=== PATIENT | female | born 1990 | race American Indian/Alaskan Native ===

== ENCOUNTER → 2018-09-09 09:28 | Outpatient (CLI) | payer MEDICAID, OTHER, SELFPAY ==
--- NOTE | 2018-09-09 | DI.RAD.S_ITS ---
PROCEDURE: XR RIBS LT 2V INDICATIONS: chest pain TECHNIQUE: 2 views of the left ribs were acquired. COMPARISON: None. FINDINGS: Surgical changes and devices: None. Bones and chest wall: No fractures or dislocations. No suspicious bony lesions. Overlying soft tissues appear unremarkable. Lungs and pleura: The visualized lung appears clear. No pleural effusions or pneumothorax are visible. IMPRESSION: No fracture identified Dictated by: Khoi Mari M.D. on 09/09/2018 at 10:49 Approved by: Khoi Mari M.D. on 09/09/2018 at 10:50
--- NOTE | 2018-09-09 | DI.RAD.S_ITS ---
PROCEDURE: XR CHEST 2V INDICATIONS: CHEST WALL LEFT ANTERIOR PAIN TECHNIQUE: 2 views of the chest were acquired. COMPARISON: [facility], , CHEST 2 VIEW, 04/03/2009, 13:33. FINDINGS: Surgical changes and devices: None. Lungs and pleura: Lungs are clear. No pleural effusions or pneumothorax. Mediastinum: Mediastinal contours are normal. Heart size is normal. Bones and chest wall: No suspicious bony abnormalities. Soft tissues appear unremarkable. IMPRESSION: No acute cardiopulmonary findings. No radiographic findings to correspond with the patient's area of pain. If further characterization is warranted, ultrasound of this region could be used. Dictated by: Kelin Rondon M.D. on 09/09/2018 at 10:53 Approved by: Kelin Rondon M.D. on 09/09/2018 at 10:54
== END ==
PROVIDERS: Visit Provider Physician Assistant
DX: R07.89 Other chest pain (principal)
CPT/HCPCS: 71046; 71100

== ENCOUNTER → 2019-01-04 16:03 | Outpatient (CLI) | payer MEDICAID, OTHER, SELFPAY ==
--- NOTE | 2019-01-04 16:06 | DI.US.S_ITS ---
PROCEDURE: US OB <= 14 WEEKS FETUS INDICATIONS: DATING OUTSIDE/PRIOR DATING DATA: Last menstrual period (LMP): 10/29/18 LMP-based estimated date of delivery (EDER): 08/10/19. First dating scan (date and location): 01/04/19. Estimated date of delivery (EDER) from first dating scan: 07/25/19. TECHNIQUE: Real-time scanning was performed of the fetus and maternal pelvic organs, with image documentation. Endovaginal scanning was also performed to better visualize the fetus and maternal ovaries. COMPARISON: None. FINDINGS: Embryo: Single intrauterine gestational sac is seen. [place]-rump length measures 4.3 cm. Estimated gestational age is 11 week one day. heart rate is 163 beats per minute. No gross paranasal gestational hemorrhage is noted. Measurement variability in dating: +/- 4 weeks by LMP, +/- 7 days by mean sac diameter (use before 6 weeks gestation if crown-rump length not able to be measured), +/- 5 days by crown-rump length (up to 8 weeks 6 days gestation), +/- 7 days by crown-rump length (up to 13 weeks 6 days gestation). Maternal organs: Ovaries are visualized and show no gross abnormality. 1.5 cm corpus luteum is noted in left ovary.. Limited images through the kidneys demonstrate no hydronephrosis. IMPRESSION: 1. Single live intrauterine with fetus seen. heart rate is 163 beats per minute. Estimated gestational age is 11 week one day. 2. Small corpus luteum the left ovary as above. Dictated by: Magdi Avalos M.D. on 01/05/2019 at 9:02 Approved by: Magdi Avalos M.D. on 01/05/2019 at 9:05
[2019-01-04 17:50] LABS: Add Manual Diff / Slide Review NO; Basophils Absolute Auto 100 /uL (0-100); Basophils Percent Auto 0.4 % (0-2); Eosinophils Absolute Auto 100 /uL (0-450); Eosinophils Percent Auto 0.3 % (2-4); Hemoglobin 12.3 g/dL (12.0-16.0); Lymphocytes Absolute Auto 2400 /uL (1100-4500); Mean Corpuscular HGB Conc 33.1 % (30-36); Mean Corpuscular Hemoglobin 26.2 PG (26-34); Mean Corpuscular Volume 79.2 fL (80-100); Monocytes Absolute Auto 700 /uL (0-900); Monocytes Percent Auto 4.6 % (3-14); Neutrophils Absolute Auto 13000 /uL (1500-7000); Neutrophils Percent Auto 79.7 % (50-75); Platelet Count 447 X10^3/uL (150-400); Red Blood Cell Count 4.68 X10^6/uL (4.0-5.2); Red Cell Distribution Width 17.2 % (11.6-14.8); White Blood Cell Count 16.3 X10^3/uL (4.5-11.0)
[2019-01-04 18:14] LABS: Appearance Urine UA CLOUDY; Bilirubin Urine UA NEGATIVE (NEGATIVE); Color Urine UA YELLOW; Glucose Urine UA NEGATIVE (Negative); Ketones Urine UA 1+ (NEGATIVE); Leukocyte Esterase Urine UA NEGATIVE (NEGATIVE); Nitrite Urine UA NEGATIVE (Negative); Occult Blood Urine UA TRACE-LYSED (Negative); Protein Urine UA TRACE (Negative); Specific Gravity Urine UA >=1.030 (1.000-1.035); Urobilinogen Urine UA 0.2 E.U./dL (0.2); pH Urine UA 5.5 (4.5-8.0)
[2019-01-04 18:20] LABS: Hepatitis B Surface Antigen NEGATIVE s/c (NEGATIVE); Rubella Antibody IgG 3.6 IU/mL (>15)
[2019-01-04 18:54] LABS: HIV 1 and 2 Antibody NEGATIVE (NEGATIVE); Hep C Virus Ab w/Reflex Quant NEGATIVE s/c (NEGATIVE)
[2019-01-06 19:50] LABS: RPR Screen Nonreactive (Nonreactive)
[2019-01-19 14:09] LABS: Urine N gonorrhoeae NOT DETECTED
[2019-01-19 14:32] LABS: Urine Chlamydia NOT DETECTED
== END ==
PROVIDERS: Visit Provider Obstetrics & Gynecology
DX: O34.81 Maternal care for other abnormalities of pelvic organs, first trimester (principal); N83.12 Corpus luteum cyst of left ovary; Z3A.11 11 weeks gestation of pregnancy
CPT/HCPCS: 36415; 76801; 80055; 81003; 86703; 86787; 86803; 86850; 86900; 86901; 87077; 87086; 87147; 87186; 87491; 87591

== ENCOUNTER → 2019-02-16 09:17 | Outpatient (CLI) | payer MEDICAID, OTHER, SELFPAY ==
[2019-02-22 12:49] LABS: Calc Gestational Age 17.4; Cigarette Smoker No; Donated Egg NOT GIVEN; Donor Egg Age NOT GIVEN; Estriol, Free 1.01 ng/mL; Inhibin A, Dimeric 423 pg/mL; Maternal Ethnicity American Indian; Maternal Weight 176 lbs; Number of Fetuses 1; Previous Pregnancy Down Syndro NOT GIVEN; hCG, MoM 1.11; hCG, Serum 28.6 IU/mL
== END ==
PROVIDERS: Visit Provider Obstetrics & Gynecology
DX: Z34.82 Encounter for supervision of other normal pregnancy, second trimester (principal); L65.9 Nonscarring hair loss, unspecified; Z3A.17 17 weeks gestation of pregnancy
CPT/HCPCS: 36415; 82105; 82677; 84439; 84443; 84702; 86336

== ENCOUNTER → 2019-03-08 07:07 | Outpatient (CLI) | payer MEDICAID, OTHER, SELFPAY ==
--- NOTE | 2019-03-08 07:10 | DI.US.S_ITS ---
PROCEDURE: US OB >= 14 WEEKS FETUS INDICATIONS: ANATOMY OUTSIDE/PRIOR DATING DATA: Last menstrual period (LMP): 10/29/18. LMP-based estimated date of delivery (EDER): 08/05/19. First dating scan (date and location): 01/04/19. Estimated date of delivery (EDER) from first dating scan: 07/25/19. TECHNIQUE: Real-time scanning was performed of the fetus, with image documentation and biometric measurements. Endovaginal scanning: No COMPARISON: [facility], , OB <= 14 WEEKS FETUS, 01/19/2019, 11:01. FINDINGS: General: A single living intrauterine gestation is present. Presentation: Vertex. Placenta: Placental position is right fundal, without previa. Amniotic fluid index: 13.3 cm, normal range is 5-24 cm. heart rate: 136 beats per minute. Maternal cervical canal: 3.9 cm long. Normal lower limit is 2.5 cm. biometrics: Biparietal diameter: 20 weeks 3 days Head circumference: 20 weeks 0 days Abdominal circumference: 20 weeks 3 days Femur length: 19 weeks 5 days Estimated gestational age from initial scan: 20 weeks 1 day Composite gestational age from present scan: 20 weeks 1 day Estimated weight and percentile: 331 g; 42nd percentile Measurement variability for biometric dating: +/- 7 days from 14 weeks to 15 weeks 6 days gestation, +/- 10 days from 16 weeks to 21 weeks 6 days gestation, +/- 2 weeks from 22 weeks to 27 weeks 6 days gestation, +/- 3 weeks for 28 weeks gestation or later. weight reference: 4500 g or EFW >90/95% is considered macrosomia or large for gestational age. EFW <10% is small for gestational age. EFW 5% or less is considered intra-uterine growth restriction. Anatomic survey: Neuro: Ventricles are non-dilated at less than 10 mm. Cisterna magna is normal at 3-11 mm. Cerebellum is normal in size and morphology. Nuchal skin fold: Normal at less than 6 mm between 14-21 weeks gestational age. Face: Nose and lips, facial profile are normal. Spine: No evidence for spina bifida. Heart: 4-chambered heart is present, with normal ventricular outflow tracts. Diaphragm: Diaphragm is intact. Stomach: Left-sided stomach is present. Kidneys: No hydronephrosis. Normal is less than 5 mm in 2nd trimester, less than 7 mm in 3rd trimester. Cord: 3-vessel cord has orthotopic insertion. Bladder: Normal in size. Extremities: All 4 extremities identified. IMPRESSION: 1. Single living IUP redemonstrated and interval growth is normal. 2. Normal anatomic survey. Dictated by: Rey ROBIN Interpreted: Xiomara Saavedra MD on 03/08/2019 at 10:30 Approved by: Xiomara Saavedra M.D. on 03/08/2019 at 16:10
== END ==
PROVIDERS: PCP Obstetrics & Gynecology; Visit Provider Obstetrics & Gynecology
DX: Z34.82 Encounter for supervision of other normal pregnancy, second trimester (principal); Z3A.20 20 weeks gestation of pregnancy
CPT/HCPCS: 76811

== ENCOUNTER → 2019-04-12 10:35 | Outpatient (CLI) | payer MEDICAID, OTHER, SELFPAY ==
[2019-04-12 13:06] LABS: Hematocrit 34.1 % (36-46); Hemoglobin 11.5 g/dL (12.0-16.0)
[2019-04-12 13:25] LABS: GTT (PREG) 1 Hour PP 50gm Dose 138 mg/dL (76-139)
== END ==
PROVIDERS: Visit Provider Obstetrics & Gynecology
DX: Z34.82 Encounter for supervision of other normal pregnancy, second trimester (principal); Z3A.24 24 weeks gestation of pregnancy
CPT/HCPCS: 36415; 82950; 85014; 85018

== ENCOUNTER 2019-05-27 13:08 | Outpatient (CLI) | payer OTHER, MEDICAID, SELFPAY ==
[2019-05-27 13:44] LABS: Add Manual Diff / Slide Review NO; Basophils Absolute Auto 200 /uL (0-100); Basophils Percent Auto 1.1 % (0-2); Eosinophils Absolute Auto 100 /uL (0-450); Eosinophils Percent Auto 0.8 % (2-4); Hematocrit 34.7 % (36-46); Hemoglobin 11.8 g/dL (12.0-16.0); Lymphocytes Absolute Auto 2000 /uL (1100-4500); Lymphocytes Percent Auto 14.1 % (25-40); Mean Corpuscular HGB Conc 33.9 % (30-36); Mean Corpuscular Hemoglobin 26.8 PG (26-34); Monocytes Absolute Auto 900 /uL (0-900); Monocytes Percent Auto 6.5 % (3-14); Neutrophils Absolute Auto 10900 /uL (1500-7000); Neutrophils Percent Auto 77.5 % (50-75); Platelet Count 477 X10^3/uL (150-400); Red Cell Distribution Width 15.4 % (11.6-14.8)
[2019-05-27 13:55] LABS: Bacteria Urine None Seen; RBC Urine None Seen (0-5/HPF)
[2019-05-27 13:56] LABS: Appearance Urine UA CLEAR; Bilirubin Urine UA NEGATIVE (NEGATIVE); Color Urine UA YELLOW; Glucose Urine UA NEGATIVE (Negative); Ketones Urine UA NEGATIVE (NEGATIVE); Leukocyte Esterase Urine UA 1+ (NEGATIVE); Nitrite Urine UA NEGATIVE (Negative); Occult Blood Urine UA NEGATIVE (Negative); Protein Urine UA NEGATIVE (Negative); Specific Gravity Urine UA 1.015 (1.000-1.035); Urobilinogen Urine UA 0.2 E.U./dL (0.2)
[2019-05-27 13:58] LABS: Aspartate Aminotransferase 20 IU/L (14-36); Blood Urea Nitrogen 4 mg/dL (7-17); Estimated Glomerular Filt Rate > 60.0 mL/min (>60); Uric Acid 3.1 mg/dL (2.5-6.2)
[2019-05-27 14:09] LABS: pH Urine UA 6.5 (4.5-8.0)
[2019-05-27 14:11] LABS: Culture Indicated Urine Cult Not Indicated; Squamous Epithelial Cell Urine 10-30 /HPF (0-5/HPF); WBC Urine 5-10/HPF (0-5/HPF)
--- NOTE | 2019-05-27 14:38 | PM.OBTRLD ---
Visit Information Visit Information Date of evaluation: 05/27/19 Primary OB Provider: Qian Smith On-call OB Provider: Janis Jones Reason for Evaluation: Yes non-stress test and Yes other Comments/Additional reasons for admission: This patient is a 28-year-old 002 at 31 and 4 presenting for evaluation of 1 month of nausea, intermittent dizziness, and 2 weeks of diarrhea. The patient reports that she has had ongoing symptoms of the above especially when active at work for the past month, but further especially the past week, she has had increasing nausea with vomiting and intermittent diarrhea. She denies fevers, chills, decreased movement, vaginal bleeding, loss of fluid, contractions, chest pain, trouble breathing, palpitations, dysuria, or abdominal pain. The patient reports that her diarrhea is improving, and that she has tried rest for symptoms and that this improves her symptoms. Vital Signs Vital Signs: 125/60, heart rate 95, afebrile [facility] Surgical History Status post delivery Review of Systems Constitutional Constitutional: Reports as per HPI Cardiovascular Cardiovascular: Reports system reviewed; no additional complaints, except as documented Respiratory Respiratory: Reports system reviewed and no additional complaints, except as documented Gastrointestinal Gastrointestinal: Reports as per HPI Genitourinary Genitourinary: Reports as per HPI Exam Narrative Exam Narrative: Patient tolerating cheeseburger and fries during monitoring, well-appearing. GI Palpation: soft and No tender Objective Labs Result Diagrams: 05/27/19 13:35 05/27/19 13:35 Labs: Laboratory Results - last 24 hr 05/27/19 05/27/19 05/27/19 13:25 13:35 13:35 WBC 14.0 H RBC 4.40 Hgb 11.8 L Hct 34.7 L MCV 79.0 L MCH 26.8 MCHC 33.9 RDW 15.4 H Plt Count 477 H Neut % (Auto) 77.5 H Lymph % (Auto) 14.1 L [place] % (Auto) 6.5 Eos % (Auto) 0.8 L Baso % (Auto) 1.1 Neut # (Auto) 44367 H Lymph # (Auto) 2000 [place] # (Auto) 900 Eos # (Auto) 100 Baso # (Auto) 200 H BUN 4 L Creatinine 0.40 L Estimated GFR > 60.0 BUN/Creatinine Ratio 10.0 Uric Acid 3.1 AST 20 Urine Color Yellow Urine Appearance Clear Urine pH 6.5 Ur Specific [place] 1.015 Urine Protein Negative Urine Glucose (UA) Negative Urine Ketones Negative Urine Occult Blood Negative Urine Nitrate Negative Urine Bilirubin Negative Urine Urobilinogen 0.2 Ur Leukocyte Esterase 1+ H Urine RBC None seen Urine WBC 5-10/hpf H Ur Squamous Epith Cells 10-30 /hpf H Urine Bacteria None seen Ur Culture Indicated? Cult not indicated Evaluation Evaluation Baseline heart rate: 135 Variability: Average (6-10) monitor accelerations: Present monitor decelerations: Absent Category of Tracing: I Laboratory results: Laboratory Tests 05/27/19 05/27/19 05/27/19 13:25 13:35 13:35 WBC 14.0 H RBC 4.40 Hgb 11.8 L Hct 34.7 L MCV 79.0 L MCH 26.8 MCHC 33.9 RDW 15.4 H Plt Count 477 H Neut % (Auto) 77.5 H Lymph % (Auto) 14.1 L [place] % (Auto) 6.5 Eos % (Auto) 0.8 L Baso % (Auto) 1.1 Neut # (Auto) 66738 H Lymph # (Auto) 2000 [place] # (Auto) 900 Eos # (Auto) 100 Baso # (Auto) 200 H BUN 4 L Creatinine 0.40 L Estimated GFR > 60.0 BUN/Creatinine Ratio 10.0 Uric Acid 3.1 AST 20 Urine Color Yellow Urine Appearance Clear Urine pH 6.5 Ur Specific [place] 1.015 Urine Protein Negative Urine Glucose (UA) Negative Urine Ketones Negative Urine Occult Blood Negative Urine Nitrate Negative Urine Bilirubin Negative Urine Urobilinogen 0.2 Ur Leukocyte Esterase 1+ H Urine RBC None seen Urine WBC 5-10/hpf H Ur Squamous Epith Cells 10-30 /hpf H Urine Bacteria None seen Ur Culture Indicated? Cult not indicated Diagnosis, Plan/Disposition Plan/Disposition Plan: Based on the patient's elevated white count and nausea vomiting and diarrhea symptoms, the patient may have had a viral gastroenteritis. The patient reports that this is now resolving, no she has a history of -induced hypertension, her vital signs and PIH labs are normal here today. The patient is well-appearing and tolerating p.o., and was counseled on lifestyle modifications for her dizziness and fatigue. We discussed that should her symptoms worsen or new symptoms appear, she should call or present to the Center. The patient is scheduled for an appointment on May 31 in clinic. The patient was given a work note and as needed RAJEEV Esquivel. OB Disposition: home
== END 2019-05-27 14:43 | disposition home or self-care (01) ==
LOC: LABOR 13:42 → OB 06-03 12:20
PROVIDERS: PCP Obstetrics & Gynecology; Visit Provider Obstetrics & Gynecology
DX: O36.8130 Decreased fetal movements, third trimester, not applicable or unspecified (principal); O16.3 Unspecified maternal hypertension, third trimester; Z3A.31 31 weeks gestation of pregnancy; R11.2 Nausea with vomiting, unspecified; R42 Dizziness and giddiness
CPT/HCPCS: 36415; 59025; 81001; 84450; 84550; 85025; G0378; G0379

== ENCOUNTER 2019-06-03 12:46 | Observation (INO) | payer OTHER, MEDICAID, SELFPAY ==
--- NOTE | 2019-06-03 14:27 | DI.US.S_ITS ---
PROCEDURE: US OB LIMITED INDICATIONS: CONTRACTIONS OUTSIDE/PRIOR DATING DATA: Last menstrual period (LMP): 10/29/18. LMP-based estimated date of delivery (EDER): 08/10/19. First dating scan (date and location): 01/04/19. Estimated date of delivery (EDER) from first dating scan: 07/25/19. TECHNIQUE: Real-time scanning was performed of the fetus, with image documentation. Endovaginal scanning: Not performed COMPARISON: None. FINDINGS: A single living intrauterine gestation is present. Presentation: Vertex Placenta: Placental position is right fundal, without previa. Amniotic fluid index: 17.5 cm, normal range is 5-24 cm. heart rate: 127 beats per minute. Maternal cervical canal: 4.06 cm long. Normal lower limit is 2.5 cm. IMPRESSION: Limited evaluation shows a single live intrauterine with fetus in vertex presentation. heart rate is 127 beats per minute. Normal amount of amniotic fluid. Cervix is closed. No placenta previa. Dictated by: Magdi Avalos M.D. on 06/03/2019 at 18:07 Approved by: Magdi Avalos M.D. on 06/03/2019 at 18:08
[2019-06-03 16:06] LABS: Fetal Fibronectin Negative
--- NOTE | 2019-06-03 16:35 | PM.OBTRLD ---
Visit Information Visit Information Date of evaluation: 06/03/19 Primary OB Provider: Qian Smith On-call OB Provider: Becky Singh Reason for Evaluation: Yes rule out labor Comments/Additional reasons for admission: Patient came in due to contractions today. Denied loss of fluid or bleeding. Contractions stopped once she arrived at the center. Delivered her first baby at 35 weeks via , second baby at term and also a . Vital Signs Vital Signs: Temp 36.2 BP 135/82 P 93 PFSH Surgical History Status post delivery Objective Labs Labs: Laboratory Results - last 24 hr 06/03/19 15:25 Fibronectin Negative Evaluation Evaluation Baseline heart rate: 130 Variability: Moderate (11-25) monitor accelerations: Present monitor decelerations: Absent Contraction Frequency (minutes): 0 Laboratory results: Laboratory Tests 06/03/19 15:25 Fibronectin Negative Diagnosis, Plan/Disposition Final Diagnosis (1) 32 weeks gestation of : Current Visit: Yes Status: Acute Plan/Disposition Plan: 28 year old at 32 weeks 4 days gestation with contractions and h/o previous delivery at 35 weeks via . Patient was not tom on the monitoring and reported that contractions stopped upon arrival to the center. FFN neg and CL 4 cm. She is considered low risk for labor at this point. Patient will discharge home and follow as scheduled in clinic. OB Disposition: home
== END 2019-06-03 17:38 | disposition home or self-care (01) ==
PROVIDERS: Family Medicine; Admitting Provider Obstetrics & Gynecology; PCP Obstetrics & Gynecology; Visit Provider Obstetrics & Gynecology
DX: O47.03 False labor before 37 completed weeks of gestation, third trimester (principal); Z3A.32 32 weeks gestation of pregnancy
CPT/HCPCS: 59025; 59050; 76815; 76817; 82731; G0378; G0379

== ENCOUNTER → 2019-06-21 12:13 | Outpatient (CLI) | payer OTHER, MEDICAID, SELFPAY ==
[2019-06-22 16:21] LABS: Strep Grp B PCR POS for Grp B Strep
== END ==
PROVIDERS: PCP Obstetrics & Gynecology; Visit Provider Obstetrics & Gynecology
DX: Z34.83 Encounter for supervision of other normal pregnancy, third trimester (principal); Z3A.35 35 weeks gestation of pregnancy
CPT/HCPCS: 87186; 87653

== ENCOUNTER 2019-06-27 09:04 | Outpatient (CLI) | payer OTHER, MEDICAID, SELFPAY ==
--- NOTE | 2019-06-27 10:05 | PM.OBTRLD ---
Visit Information Visit Information Date of evaluation: 06/27/19 Primary OB Provider: Qian Smith On-call OB Provider: Cristina Watkins Reason for Evaluation: Yes rupture of membranes Vital Signs Vital Signs: Blood pressure 136/81, pulse of 95, temperature 36.6? Evaluation Evaluation Baseline heart rate: 130 Variability: Moderate (11-25) monitor accelerations: Present monitor decelerations: Absent Contraction Frequency (minutes): 8 Uterine Contraction Intensity: Mild Category of Tracing: I Non-invasive Membranes Rupture Test: negative Diagnosis, Plan/Disposition Final Diagnosis (1) False labor, antepartum: Current Visit: Yes Status: Acute Plan/Disposition Plan: Patient who was where she had rupture membranes because of fluid leaking down her leg x2. AmniSure negative. Patient with some Doddridge Marvin contractions nothing painful. Patient was discharged home to be followed up later in the week for OB appointment OB Disposition: home
== END 2019-06-27 10:26 | disposition home or self-care (01) ==
LOC: LABOR 09:15 → OB 15:48
PROVIDERS: PCP Specialist; Visit Provider Obstetrics & Gynecology
DX: Z34.83 Encounter for supervision of other normal pregnancy, third trimester (principal); Z3A.37 37 weeks gestation of pregnancy
CPT/HCPCS: 59025; 84112; G0378; G0379

== ENCOUNTER 2019-07-06 09:38 | Inpatient (IN) | payer OTHER, MEDICAID, SELFPAY ==
[2019-07-06] VITALS (7 sets, daily range): BP systolic 99–135; BP diastolic 51–90; PULSE 79–103; RESP 14–19; TEMP 36.6; O2SAT 100
[2019-07-06 10:43] LABS: Add Manual Diff / Slide Review NO; Basophils Absolute Auto 100 /uL (0-100); Basophils Percent Auto 0.6 % (0-2); Eosinophils Absolute Auto 0 /uL (0-450); Eosinophils Percent Auto 0.5 % (2-4); Hematocrit 38.5 % (36-46); Hemoglobin 12.9 g/dL (12.0-16.0); Lymphocytes Absolute Auto 1400 /uL (1100-4500); Lymphocytes Percent Auto 15.7 % (25-40); Mean Corpuscular HGB Conc 33.5 % (30-36); Mean Corpuscular Hemoglobin 25.8 PG (26-34); Monocytes Absolute Auto 500 /uL (0-900); Monocytes Percent Auto 5.8 % (3-14); Neutrophils Absolute Auto 7100 /uL (1500-7000); Neutrophils Percent Auto 77.4 % (50-75); Platelet Count 444 X10^3/uL (150-400); Red Cell Distribution Width 15.7 % (11.6-14.8); White Blood Cell Count 9.2 X10^3/uL (4.5-11.0)
[2019-07-06 10:55] LABS: Alanine Aminotransferase 15 IU/L (<35); Albumin 3.8 g/dL (3.5-5.0); Alkaline Phosphatase 169 U/L (38-126); Aspartate Aminotransferase 24 IU/L (14-36); Bilirubin Total 0.4 mg/dL (0.2-1.3); Blood Urea Nitrogen 4 mg/dL (7-17); Carbon Dioxide 25 mmol/L (22-32); Chloride 105 mmol/L (98-107); Estimated Glomerular Filt Rate > 60.0 mL/min (>60); Glucose 76 mg/dL (70-100); HEMOLYSIS < 15 (0-50); Sodium 137 mmol/L (137-145); Total Protein 7.8 g/dL (6.3-8.2)
[2019-07-06 11:05] LABS: Bacteria Urine None Seen; RBC Urine None Seen (0-5/HPF); WBC Urine None Seen (0-5/HPF)
[2019-07-06 11:06] LABS: Appearance Urine UA CLEAR; Bilirubin Urine UA NEGATIVE (NEGATIVE); Color Urine UA YELLOW; Glucose Urine UA NEGATIVE (Negative); Ketones Urine UA NEGATIVE (NEGATIVE); Leukocyte Esterase Urine UA NEGATIVE (NEGATIVE); Nitrite Urine UA NEGATIVE (Negative); Occult Blood Urine UA NEGATIVE (Negative); Protein Urine UA NEGATIVE (Negative); Urobilinogen Urine UA 0.2 E.U./dL (0.2)
--- NOTE | 2019-07-06 11:07 | P.HPOB_ITS ---
OB HPI Date/Time Date of admission: 07/06/19 Date Patient Seen: 07/06/19 Time Patient Seen: 11:07 History of Present Condition Chief complaint: LABOR : 3 Para: 2 Estimated Date of Delivery: 07/25/19 Estimated Gestational Age (weeks): 37 Narrative: Elvia Etienne is a 28 year old female with 2 prior sections admitted for repeat section for contractions and hypertension in the 3rd trimester with some early preeclamptic lab changes Indications Operative indications ( section): previous uterine surgery History of Present care: good care, initiated at week # (11), number of visits (10) and pounds weight gain (44) Dating criteria: based on 1st trimester US only Obstetrical complications: gestational hypertension Medical complications: none Preadmission Labs Blood type: O (+) positive -: Antibody screen: negative, GBS status: positive, HBsAG: negative, HIV: negative, HSV 1: positive, HSV 2: positive and RPR/VDLR: negative -: Chlamydia screen: not detected and Gonorrhea screen: not detected -: Rubella: not immune and Varicella: not immune HCAB: negative Quad screen: Normal 1 hr GTT: 138 Prior (ies) History: 04/05/2011 35 week gestation male 7 lb 5 oz PROM 07/20/2013 39 weeks gestation female 7 lb 12 oz repeat Evaluation Evaluation Laboratory results: Laboratory Tests 07/06/19 07/06/19 07/06/19 10:33 10:33 11:00 WBC 9.2 RBC 5.00 Hgb 12.9 Hct 38.5 MCV 77.0 L MCH 25.8 L MCHC 33.5 RDW 15.7 H Plt Count 444 H Neut % (Auto) 77.4 H Lymph % (Auto) 15.7 L [place] % (Auto) 5.8 Eos % (Auto) 0.5 L Baso % (Auto) 0.6 Neut # (Auto) 7100 H Lymph # (Auto) 1400 [place] # (Auto) 500 Eos # (Auto) 0 Baso # (Auto) 100 Sodium 137 Potassium 4.0 Chloride 105 Carbon Dioxide 25 BUN 4 L Creatinine 0.50 L Estimated GFR > 60.0 BUN/Creatinine Ratio 8.0 Glucose 76 Calcium 9.0 Total Bilirubin 0.4 AST 24 ALT 15 Alkaline Phosphatase 169 H Total Protein 7.8 Albumin 3.8 Globulin 4.0 Albumin/Globulin Ratio 1.0 Urine Color Yellow Urine Appearance Clear Urine pH 7.0 Ur Specific [place] 1.010 Urine Protein Negative Urine Glucose (UA) Negative Urine Ketones Negative Urine Occult Blood Negative Urine Nitrate Negative Urine Bilirubin Negative Urine Urobilinogen 0.2 Ur Leukocyte Esterase Negative [facility] Social History Smoking Status: Never smoker Meds Home Medications and Allergies Home Medications Medication Instructions Recorded Confirmed Type ACETAMINOPHEN 650 mg PO PRN #0 12/28/12 07/06/19 History VIT#96/FERROUS FUM/FA 1 tab PO QDAY #100 01/21/13 07/06/19 Rx ( Vitamin) albuterol sulfate [Ventolin HFA] 0 puff INH Q4HP PRN #1 ea 08/23/17 07/06/19 Rx Allergies Allergy/AdvReac Type Severity Reaction Status Date / Time cefixime [CEFIXIME] Allergy Unknown Verified 06/03/19 13:31 Penicillins [PENICILLINS] Allergy Unknown Verified 06/03/19 13:31 promethazine [PROMETHAZINE] Allergy Unknown Verified 06/03/19 13:31 Review of Systems Review of Systems Narrative: Patient thought she had broken her bag of water because she soaks through 3 pads and had fluid leaking down her leg. She began having contractions at 4:00 a.m.. Good movement. Patient has had chronic headache for over a week. No scotomata or epigastric pain. Good movement. ROS Unobtainable: All systems reviewed & are unremarkable except as noted in HPI and below Exam Vital Signs (past 8 hours): - 07/06/19 10:22 Blood Pressure 135/90 Narrative Exam Narrative: HEENT exam within normal limits. Lungs are clear to auscultation and percussion. Heart is regular rate and rhythm no S3-S4 or murmurs. Abdomen is soft, nontender. Fetus is vertex. Extremities without edema and nontender. Objective Labs Result Diagrams: 07/06/19 10:33 07/06/19 10:33 Labs: Laboratory Results - last 24 hr 07/06/19 07/06/19 07/06/19 10:33 10:33 11:00 WBC 9.2 RBC 5.00 Hgb 12.9 Hct 38.5 MCV 77.0 L MCH 25.8 L MCHC 33.5 RDW 15.7 H Plt Count 444 H Neut % (Auto) 77.4 H Lymph % (Auto) 15.7 L [place] % (Auto) 5.8 Eos % (Auto) 0.5 L Baso % (Auto) 0.6 Neut # (Auto) 7100 H Lymph # (Auto) 1400 [place] # (Auto) 500 Eos # (Auto) 0 Baso # (Auto) 100 Sodium 137 Potassium 4.0 Chloride 105 Carbon Dioxide 25 BUN 4 L Creatinine 0.50 L Estimated GFR > 60.0 BUN/Creatinine Ratio 8.0 Glucose 76 Calcium 9.0 Total Bilirubin 0.4 AST 24 ALT 15 Alkaline Phosphatase 169 H Total Protein 7.8 Albumin 3.8 Globulin 4.0 Albumin/Globulin Ratio 1.0 Urine Color Yellow Urine Appearance Clear Urine pH 7.0 Ur Specific [place] 1.010 Urine Protein Negative Urine Glucose (UA) Negative Urine Ketones Negative Urine Occult Blood Negative Urine Nitrate Negative Urine Bilirubin Negative Urine Urobilinogen 0.2 Ur Leukocyte Esterase Negative Assessment and Plan Assessment and Plan Assessment and Plan narrative: Patient with 2 prior sections with increased blood pressure, headaches, increased alkaline phosphatase, grade 3 placenta, contractions every 1-3 minutes decision was made to proceed with planned repeat section.
--- NOTE | 2019-07-06 11:07 | PM.PREOP ---
Pre-operative Note Interval Note History & Physical reviewed/Exam performed by Physician: Yes Changes to H&P: No
[2019-07-06 11:14] LABS: Culture Indicated Urine Cult Not Indicated
[2019-07-06] MEDS: CLINDAMYCIN 900 MG/50 ML PIGGYBACK 50 MG IV (13:29)
--- NOTE | 2019-07-06 14:00 | SUR.OPER ---
Supine on Padded OR bed, head on pillow, safety belt at thigh, arms secured on padded arm boards at <90 degrees abduction. Bump under right buttock. Legs uncrossed with pillow under knees, gel pad to heels, tape over blanket to lower legs.
--- NOTE | 2019-07-06 14:13 | SUR.OPER ---
FHR 146 LIVE MALE BORN AT 1346
--- NOTE | 2019-07-06 14:33 | PM.OP.1 ---
Operative Date/Time/Diagnoses Date of procedure: 07/06/19 Time of procedure: 14:33 Pre-op diagnosis: Prior section in early labor Post-op diagnosis: same Procedure & Clinicians Procedure: Repeat low-transverse section Same procedure as scheduled: Yes Indications: Frequent contractions, grade 3 placenta, bad headache, 2 prior sections Surgeon: Cristina Watkins Machine Maintenance Mechanic: Janell Abdi Click Yes if Unassisted: No Anesthesia Type: Spinal Operative Notes Findings: Normal tubes, ovaries, uterus. Extensive adhesions of the omentum to the anterior abdominal wall. Viable male weighing 7 lb 3 oz with Apgars of 9 and 9 Closure Type: primary Specimen(s): none sent Applied: catheter (Medeiros) Estimated Blood Loss (mL): 350 Blood products transfused: none Procedure in detail: The patient was brought to the operating room where she underwent a spinal for anesthesia. She was placed in a supine position with a left lateral tilt. A Medeiros catheter was placed. Pulsatile stockings were placed and functional throughout the case. 900 mg of clindamycin were given IV prior to the incision. Warming was in place. The patient was prepped and draped in usual sterile fashion. A low transverse incision was made with a scalpel and the incision was carried down to the fascial layer which was incised transversely with scissors. The midline attachments are superiorly and inferiorly. Some bleeding was controlled Bovie. The rectus muscles were in the midline and the peritoneal incision was made with no damage to internal structures. The peritoneum was incised and superiorly and inferiorly. Bladder blade was placed and a bladder flap was developed and the bladder held away from the lower uterine segment. An incision was made in the uterus with the scalpel and the incision was extended with stretching. The head was elevated out of the abdomen and with fundal pressure the baby was delivered. The was bulb suctioned for clear fluid and handed off to the warmer. Cord blood was collected. The placenta delivered spontaneously with traction. The uterus was cleaned with clean laps. The uterine incision was closed in 2 layers of 0 chromic suture the first a running locking layer the second an imbricating layer. Due to adhesions there was no obvious bladder flap to repair. The gutters were cleaned of any remaining fluids and ovaries and tubes were observed to be normal. Adequate hemostasis was noted. The perineum was closed with 2-0 Polysorb suture. The fascia layer was closed with 0 Polysorb suture with 2 stitches. The incision was irrigated and adequate hemostasis noted. The incision was closed with interrupted 3-0 Polysorb sutures and then a subcuticular stitch of 4-0 Polysorb suture. Steri-Strips were placed. The uterus was massaged to remove any clots. The patient went to recovery room in good condition. Counts of instruments and sponges were correct. Complications: none Post-operative Condition: stable Disposition: other ( center) Plan for aftercare: Routine post section
--- NOTE | 2019-07-06 15:00 | SUR.PHASEI ---
1200 LR infused. Medication not scanned during surgery.
--- NOTE | 2019-07-06 15:21 | SUR.PHASEI ---
Patient to L&D in stable condition. Assisted receiving nurse with changing all linen and repositioning patient in bed.
[2019-07-06] MEDS: OXYCODONE/ACETAMINOPHEN 5/325 TABLET 1 TAB PO ×2 (16:06→20:54)
[2019-07-06] MEDS: LACTATED RINGERS 1,000 ML 100 ML IV (16:07)
[2019-07-06] MEDS: diphenhydrAMINE 50 MG/ML VIAL 25 MG IV ×2 (16:43→21:34)
[2019-07-06] MEDS: KETOROLAC 30 MG/ML VIAL IV (20:51)
[2019-07-07] MEDS: KETOROLAC 30 MG/ML VIAL IV ×2 (02:37→09:06)
[2019-07-07] MEDS: OXYCODONE/ACETAMINOPHEN 5/325 TABLET 1 TAB PO ×4 (02:38→14:35)
[2019-07-07 06:52] LABS: Add Manual Diff / Slide Review NO; Basophils Absolute Auto 0 /uL (0-100); Basophils Percent Auto 0.3 % (0-2); Eosinophils Absolute Auto 0 /uL (0-450); Eosinophils Percent Auto 0.3 % (2-4); Hematocrit 33.4 % (36-46); Lymphocytes Absolute Auto 1500 /uL (1100-4500); Lymphocytes Percent Auto 12.4 % (25-40); Mean Corpuscular Hemoglobin 25.3 PG (26-34); Mean Corpuscular Volume 76.7 fL (80-100); Monocytes Absolute Auto 800 /uL (0-900); Monocytes Percent Auto 6.9 % (3-14); Neutrophils Absolute Auto 9500 /uL (1500-7000); Neutrophils Percent Auto 80.1 % (50-75); Platelet Count 383 X10^3/uL (150-400); Red Blood Cell Count 4.35 X10^6/uL (4.0-5.2); Red Cell Distribution Width 15.6 % (11.6-14.8); White Blood Cell Count 11.8 X10^3/uL (4.5-11.0)
[2019-07-07] MEDS: DOCUSATE 250 MG CAPSULE PO (09:05)
--- NOTE | 2019-07-07 14:32 | P.PNOB_ITS ---
Subjective - OB Subjective Patient comments: incisional pain, tolerating diet and flatus present [place] baby status: doing well [place] feeding status: exclusively breast feeding Date Patient Seen: 07/07/19 Time Patient Seen: 14:32 Interval history: Patient denies headaches, scotomata, epigastric pain. Breast- feeding is going well. She is urinating and ambulatory. Her bleeding is normal. She is passing gas. Overall she feels better than after her previous sections. Exam Vital Signs (past 8 hours): Blood pressure 153/87, pulse 71, temperature 98.7? Oxygen Delivery Method Room Air Narrative Exam Narrative: Abdomen is soft, with mild distention, nontender. Uterus is firm, U -1, appropriately tender. Dressing is clean dry and intact. Mild lochia. Extremities without edema and nontender Objective Labs Result Diagrams: 07/07/19 06:30 07/06/19 10:33 Labs: Laboratory Results - last 24 hr 07/07/19 06:30 WBC 11.8 H RBC 4.35 Hgb 11.0 L Hct 33.4 L MCV 76.7 L MCH 25.3 L MCHC 33.0 RDW 15.6 H Plt Count 383 Neut % (Auto) 80.1 H Lymph % (Auto) 12.4 L [place] % (Auto) 6.9 Eos % (Auto) 0.3 L Baso % (Auto) 0.3 Neut # (Auto) 9500 H Lymph # (Auto) 1500 [place] # (Auto) 800 Eos # (Auto) 0 Baso # (Auto) 0 Assessment & Plan Assessment and Plan (1) Delivery by section at 37-39 weeks of gestation due to labor: Status: Acute Assessment and plan: Normal 1st day post section exam. Probable home in a.m. if doing well. Current Visit: Yes Plan day: 1 plan OB: routine postop care Time Spent With Patient Time: Total time spent is greater than 50% in coordination of care (as docu mented) at patient's floor/unit and/or counseling patient: Time with patient: less than 15 minutes
[2019-07-07] MEDS: IBUPROFEN 600 MG TABLET PO ×2 (14:55→20:43)
[2019-07-07] MEDS: OXYCODONE/ACETAMINOPHEN 5/325 TABLET 2 TAB PO (19:08)
[2019-07-07 22:13] VITALS: BP 139/92
[2019-07-07] MEDS: LABETALOL 100 MG TABLET PO (22:13)
[2019-07-07 23:50] VITALS: BP 137/78; PULSE 97
[2019-07-08] MEDS: OXYCODONE/ACETAMINOPHEN 5/325 TABLET 2 TAB PO ×2 (02:45→10:44)
[2019-07-08] MEDS: IBUPROFEN 600 MG TABLET PO ×2 (02:46→10:45)
[2019-07-08] MEDS: DOCUSATE 250 MG CAPSULE PO (02:46)
[2019-07-08 07:31] VITALS: BP 148/96; PULSE 78; RESP 19; TEMP 36.6
--- NOTE | 2019-07-08 08:05 | P.DS_ITS ---
Discharge Providers Provider Date of admission: 07/06/19 09:38 Discharge Date: 07/08/19 Consults: 07/06/19 15:30 Consult to [employer] Checker Routine Comment: Discharge provider: Cristina Watkins MD Summary Hospital Course Date Patient Seen: 07/08/19 Time Patient Seen: 08:06 Procedures: Repeat low-transverse section Hospital Course: Patient arrived on Labor and delivery with early labor, increased blood pressure, grade 3 placenta so decision was made to proceed with repeat low-transverse section. The patient did well . Her blood pressure remained elevated so she was started on labetalol. Peripartum Data Infant Delivery Method: Section (Repeat) Procedures: Repeat low-transverse section complications: none 1: Gender: Male Disposition of : home Discharge Diagnosis (1) Delivery by section at 37-39 weeks of gestation due to labor: Status: Acute Status at Discharge Cognitive/behavioral status at discharge: oriented Functional status at discharge: independent ambulation Overall status at discharge: patient is progressing back to baseline Time Spent with Patient Time attestation: Total time spent providing and/or coordinating discharge services: Time spent: Less than 30 minutes Objective Labs Result Diagrams: 07/07/19 06:30 07/06/19 10:33 Exam Vital Signs (past 8 hours): Blood pressure 148/96, pulse 78, temperature 98.2? Oxygen Delivery Method Room Air Narrative Exam Narrative: Abdomen is soft, nontender. Uterus is firm, at U, appropriately tender. Dressing is clean, dry, intact. Mild lochia. Extremities with trace edema and nontender. Patient's blood type is O positive, she is rubella nonimmune so received the rubella vaccine prior to discharge. She received the Tdap in the 3rd trimester. Discharge Plan Discharge Plan Patient Disposition: Home Discharge orders & Medications Prescriptions: New docusate sodium [Col-Rite] 100 mg capsule 100 mg PO DAILY Qty: 30 RF: 0 oxycodone-acetaminophen 5-325 mg Tablet 2 tab PO Q4HR PRN (Reason: Pain, Severe (7-10)) Qty: 40 RF: 0 ibuprofen 600 mg Tablet 600 mg PO Q6HR PRN (Reason: Fever/Mild Pain (1-3)) Qty: 30 RF: 0 labetalol 100 mg Tablet 100 mg PO BID Qty: 60 RF: 0 Continued ACETAMINOPHEN 650 mg PO PRN Qty: 0 RF: 0 VIT#96/FERROUS FUM/FA ( Vitamin) 1 tab PO QDAY Qty: 100 RF: 3 albuterol sulfate [Ventolin HFA] 90 MCG/PUFF HFA aerosol inhaler 0 puff INH Q4HP PRNQty: 1 RF: 0 Follow up/Referrals: Cristina Watkins MD [Physician] - 1 Week (Remove Aquacel and check blood pressureon 07/15/2019 @0830) Diet/Activity/Treatments Diet: Regular Activity: Nothing in vagina for 4 weeks do not lift over 20 lb for 6 weeks Skin/Wound/Dressing Care Report to your healthcare provider any signs of infection, such as:: chills, fever, increased pain and unusual redness Visit Report/Discharge Packet Stand Alone Forms: Discharge: Care Discharges patient from system. Discharge Date/Time: 07/08/19 12:28
[2019-07-08 08:17] VITALS: BP 148/96; PULSE 78
[2019-07-08] MEDS: LABETALOL 100 MG TABLET PO (08:17)
== END 2019-07-08 12:28 | disposition home or self-care (01) | DRG 788 ==
PROVIDERS: Admitting Provider Specialist; Visit Provider Specialist
PROC: 10D00Z1 Extraction of Products of Conception, Low, Open Approach (ICD-10-PCS; CPT 59514; principal; 2019-07-06 12:45)
DX: O75.82 Onset (spontaneous) of labor after 37 completed weeks of gestation but before 39 completed weeks gestation, with delivery by (planned) cesarean section (principal); O34.219 Maternal care for unspecified type scar from previous cesarean delivery; Z3A.37 37 weeks gestation of pregnancy; Z37.0 Single live birth; O13.4 Gestational [pregnancy-induced] hypertension without significant proteinuria, complicating childbirth; O99.824 Streptococcus B carrier state complicating childbirth; B00.9 Herpesviral infection, unspecified; O99.89 Other specified diseases and conditions complicating pregnancy, childbirth and the puerperium; N73.6 Female pelvic peritoneal adhesions (postinfective)
CPT/HCPCS: 36415; 59050; 59510; 59515; 76815; 80053; 81001; 85025; 86850; 86900; 86901; G0379; J1200; J1885; J2274; J2405; J2590; J2765; J3010

== ENCOUNTER 2019-07-27 00:47 | Emergency (ER) | payer MEDICAID, SELFPAY ==
[2019-07-27 01:05] VITALS: BP 133/85; PULSE 107; RESP 15; TEMP 37.3; O2SAT 99; BMI 33.6
--- NOTE | 2019-07-27 01:19 | DI.RAD.S_ITS ---
PROCEDURE: XR CHEST 1V INDICATIONS: chest pain TECHNIQUE: One view of the chest was acquired. COMPARISON: None. FINDINGS: Surgical changes and devices: None. Lungs and pleura: Lungs are clear. No pleural effusions or pneumothorax. Mediastinum: Mediastinal contours appear normal. Heart size is normal. Bones and chest wall: No suspicious bony lesions. Overlying soft tissues appear unremarkable. IMPRESSION: No acute cardiopulmonary disease process. Dictated by: Sophia Casiano MD, PhD on 07/27/2019 at 8:17 Approved by: Sophia Casiano MD, PhD on 07/27/2019 at 8:17
[2019-07-27 01:38] LABS: Add Manual Diff / Slide Review NO; Basophils Absolute Auto 100 /uL (0-100); Basophils Percent Auto 0.7 % (0-2); Eosinophils Absolute Auto 100 /uL (0-450); Eosinophils Percent Auto 1.2 % (2-4); Hematocrit 36.4 % (36-46); Lymphocytes Absolute Auto 2000 /uL (1100-4500); Lymphocytes Percent Auto 16.4 % (25-40); Mean Corpuscular HGB Conc 33.1 % (30-36); Mean Corpuscular Hemoglobin 25.1 PG (26-34); Mean Corpuscular Volume 75.8 fL (80-100); Monocytes Absolute Auto 500 /uL (0-900); Monocytes Percent Auto 4.4 % (3-14); Neutrophils Absolute Auto 9300 /uL (1500-7000); Neutrophils Percent Auto 77.3 % (50-75); Platelet Count 635 X10^3/uL (150-400); Red Cell Distribution Width 15.6 % (11.6-14.8)
[2019-07-27 01:44] LABS: Alanine Aminotransferase 31 IU/L (<35); Albumin 4.2 g/dL (3.5-5.0); Alkaline Phosphatase 106 U/L (38-126); Aspartate Aminotransferase 29 IU/L (14-36); BUN Creatinine Ratio 13.3 (6-22); Bilirubin Total 0.3 mg/dL (0.2-1.3); Blood Urea Nitrogen 8 mg/dL (7-17); Calcium 9.5 mg/dL (8.4-10.2); Carbon Dioxide 27 mmol/L (22-32); Chloride 103 mmol/L (98-107); Estimated Glomerular Filt Rate > 60.0 mL/min (>60); Globulin 4.2 g/dL (1.7-4.1); Glucose 133 mg/dL (70-100); HEMOLYSIS < 15 (0-50); Sodium 139 mmol/L (137-145); Total Protein 8.4 g/dL (6.3-8.2)
[2019-07-27 01:56] LABS: Troponin I < 0.012 ng/mL (0.01-0.034)
--- NOTE | 2019-07-27 02:35 | ED_ITS ---
HPI - Chest Pain General Chief Complaint: Chest Pain Stated Complaint: has hbp chest pain tingling on left side Time Seen by Provider: 07/27/19 02:35 Source: patient Mode of arrival: Family Vehicle Limitations: no limitations History of Present Illness HPI narrative: The patient is 3 weeks . She developed hypertension, she was prescribed labetalol. She was initially on labetalol 2 times daily. She has acid reflux, and was started on omeprazole 2-3 days ago for the acid reflux. She has no stomach pain now. Apparently she was directed to decrease the labetalol dose to 100 mg once a day. She developed chest tightness yesterday. She has no recent cough, or shortness of breath. She has no cardiac or pulmonary disease. She was feeling hot flash. She took a 2nd dose of labetalol, she resume to the original dosing. She has some sternal discomfort upon arrival, but the flushing has resolved. Blood pressure is 130 systolic here in the ER. She is feeling much better than earlier today. She denies recent illness. She has no cough. She has no URI symptoms. She has no GI symptoms. Related Data Home Medications Medication Instructions Recorded Confirmed ACETAMINOPHEN 650 mg PO PRN #0 12/28/12 07/06/19 Previous Rx's Medication Instructions Recorded VIT#96/FERROUS FUM/FA 1 tab PO QDAY #100 01/21/13 ( Vitamin) albuterol sulfate [Ventolin HFA] 0 puff INH Q4HP PRN #1 ea 08/23/17 docusate sodium [Col-Rite] 100 mg PO DAILY #30 cap 07/08/19 ibuprofen 600 mg PO Q6HR PRN #30 tab 07/08/19 labetalol 100 mg PO BID #60 tab 07/08/19 oxycodone-acetaminophen 5 mg-325 1 tab PO Q4HR PRN #20 tab 07/15/19 mg tablet Allergies Allergy/AdvReac Type Severity Reaction Status Date / Time cefixime [CEFIXIME] Allergy Unknown Verified 07/15/19 08:21 Penicillins [PENICILLINS] Allergy Unknown Verified 07/15/19 08:21 promethazine [PROMETHAZINE] Allergy Unknown Verified 07/15/19 08:21 Review of Systems Review of Systems ROS Unobtainable: All systems reviewed & are unremarkable except as noted in HPI and below Constitutional Constitutional: Denies chills, Denies fever(s), Denies headache(s), Denies lethargy and Denies weakness Comments: Feeling flushed. Eyes Eyes: Denies change in vision ENT Ears, Nose, Mouth, and Throat: Denies facial pain and Denies headache(s) Cardiovascular Cardiovascular: Reports as per HPI, Reports chest pain, Denies lightheadedness, Denies palpitations and Denies dyspnea Respiratory Respiratory: Denies cough, Denies dyspnea and Denies wheezing Gastrointestinal Gastrointestinal: Denies abdominal pain and Denies change in bowel habits Musculoskeletal Musculoskeletal: Denies back pain and Denies tingling Integumentary/Breasts Skin/Breast: Denies pruritus, Denies erythema, Denies rash and Denies wounds Neurologic Neurologic: Denies confusion, Denies headache(s), Denies tingling and Denies weakness Psychiatric Psychiatric: Denies confusion Endocrine Endocrine: Denies palpitations Allergic/Immunologic Allergic/Immunologic: Denies wheezing Patient History Medical History (Updated 07/27/19 @ 02:52 by Win Lizarraga MD) GERD (gastroesophageal reflux disease) (Acute) Hypertension (Acute) Surgical History Status post delivery Social History Smoking Status: Never smoker Smoking Status: Never smoker alcohol intake frequency: 0-2 drinks per day Substance Use Type: does not use Exam Initial Vital Signs Initial Vital Signs: Vital Signs Temperature 99.1 F 07/27/19 01:05 Pulse Rate 107 H 07/27/19 01:05 Respiratory Rate 15 07/27/19 01:05 Blood Pressure 133/85 07/27/19 01:05 Pulse Oximetry 99 07/27/19 01:05 Const General: cooperative and well developed Nutritional Appearance: well nourished HENMT Face and sinus: normal facial exam and sinuses tender Mouth: oral mucosae normal Throat: posterior oropharynx normal Eyes General: appearance normal, both eyes and all related structures Eyelids: eyelids normal Conjunctivae: conjunctivae normal Sclera: sclerae normal Pupils: PERRL EOM: EOM intact bilaterally Neck Neck: No JVD Chest Chest: tenderness (Along the sternum.) Resp Effort & Inspection: normal respiratory effort and able to speak in complete sentences Auscultation: clear to auscultation bilaterally, no rales, no rhonchi and no wheezes Cardio Rate: regular rate Rhythm: regular rhythm Heart Sounds: no click, no gallops, no murmurs and no rubs Pulses: normal peripheral pulses GI Inspection: non-distended Palpation: soft, no hepatosplenomegaly and No tender Auscultation: normal bowel sounds Back/Spine/Pelvis Back: No back tenderness Skin General: no rashes or lesions noted Neuro General: alert, oriented x3, gait normal and no focal motor deficits Speech: speech normal Extrem General: full ROM, no pedal edema and no calf tenderness Course Course Course Narrative: From the exam the patient has an element of costochondritis. This could possibly associated with her GERD. However, she may be have essential hypertension. She did not tolerate the decreased dose of labetalol. I have advised her to resume the normal dose. She should follow-up with her OB doctor or primary care doctor regarding ongoing treatment for hypertension. Orders Ordered: ED Orders 07/27/19 01:19 Chest [XR chest 1V] Stat EKG-12 Lead Stat 07/27/19 01:25 Complete Blood Count AUTO DIFF Stat Comprehensive Metabolic Panel Stat Troponin I Stat Vital Signs Vital signs: Vital Signs - 8 hr 07/27/19 01:05 Temperature 99.1 F Pulse Rate 107 H Respiratory Rate 15 Blood Pressure 133/85 Pulse Oximetry 99 MDM - Chest Pain Lab Data Result diagrams: 07/27/19 01:25 07/27/19 01:25 Labs: Lab Results 07/27/19 07/27/19 Range/Units 01:25 01:25 WBC 12.0 H (4.5-11.0) X10^3/uL RBC 4.80 (4.0-5.2) X10^6/uL Hgb 12.0 (12.0-16.0) g/dL Hct 36.4 (36-46) % MCV 75.8 L (80-100) fL MCH 25.1 L (26-34) PG MCHC 33.1 (30-36) % RDW 15.6 H (11.6-14.8) % Plt Count 635 H (150-400) X10^3/uL Neut % (Auto) 77.3 H (50-75) % Lymph % (Auto) 16.4 L (25-40) % [place] % (Auto) 4.4 (3-14) % Eos % (Auto) 1.2 L (2-4) % Baso % (Auto) 0.7 (0-2) % Neut # (Auto) 9300 H (9494-4147) /uL Lymph # (Auto) 2000 (3593-4700) /uL [place] # (Auto) 500 (0-900) /uL Eos # (Auto) 100 (0-450) /uL Baso # (Auto) 100 (0-100) /uL Sodium 139 (137-145) mmol/L Potassium 4.0 (3.4-5.1) mmol/L Chloride 103 (98-107) mmol/L Carbon Dioxide 27 (22-32) mmol/L BUN 8 (7-17) mg/dL Creatinine 0.60 (0.52-1.04) mg/dL Estimated GFR > 60.0 (>60) mL/min BUN/Creatinine Ratio 13.3 (6-22) Glucose 133 H (70-100) mg/dL Calcium 9.5 (8.4-10.2) mg/dL Total Bilirubin 0.3 (0.2-1.3) mg/dL AST 29 (14-36) IU/L ALT 31 (<35) IU/L Alkaline Phosphatase 106 (38-126) U/L Troponin I < 0.012 (0.01-0.034) ng/mL Total Protein 8.4 H (6.3-8.2) g/dL Albumin 4.2 (3.5-5.0) g/dL Globulin 4.2 H (1.7-4.1) g/dL Albumin/Globulin Ratio 1.0 (1.0-2.8) Imaging Data Chest x-ray: My Impression: Normal ECG Data Attestation: I personally reviewed and interpreted this ECG as follows: (Sinus tachycardia rate 105 beats per minute. Normal intervals. No ectopy. No acute ST T wave segments.) Discharge Plan Departure Patient Disposition: Home Clinical Impression: Costochondritis Hypertension Qualifiers: Hypertension type: essential hypertension Qualified Code(s): I10 - Essential (primary) hypertension Instructions: Essential Hypertension, Costochondritis Activity Restrictions/Additional Instructions: Take the labetalol 2 times daily as originally prescribed. Follow-up with your primary care doctor for a blood pressure recheck. The pain you are experiencing is from her ribs. Tylenol 2 tabs every 4 hours as needed for the pain. Return to the ER as needed. Prescriptions: No Action ACETAMINOPHEN 650 mg PO PRN Qty: 0 RF: 0 VIT#96/FERROUS FUM/FA ( Vitamin) 1 tab PO QDAY Qty: 100 RF: 3 albuterol sulfate [Ventolin HFA] 90 MCG/PUFF HFA aerosol inhaler 0 puff INH Q4HP PRNQty: 1 RF: 0 oxycodone-acetaminophen 5-325 mg tablet 1 tab PO Q4HR PRN (Reason: Pain, Severe (7-10)) Qty: 20 RF: 0 docusate sodium [Col-Rite] 100 mg capsule 100 mg PO DAILY Qty: 30 RF: 0 ibuprofen 600 mg Tablet 600 mg PO Q6HR PRN (Reason: Fever/Mild Pain (1-3)) Qty: 30 RF: 0 labetalol 100 mg Tablet 100 mg PO BID Qty: 60 RF: 0
[2019-07-27 02:43] VITALS: BP 133/85; PULSE 93; O2SAT 98
== END 2019-07-27 02:54 | disposition home or self-care (01) ==
LOC: ED 02:50
PROVIDERS: Emergency Provider Emergency Medicine
DX: M94.0 Chondrocostal junction syndrome [Tietze] (principal); I10 Essential (primary) hypertension; R00.0 Tachycardia, unspecified
CPT/HCPCS: 36415; 71045; 80053; 84484; 85025; 93005; 99282; 99285

== ENCOUNTER → 2020-02-17 10:07 | Outpatient (CLI) | payer MEDICAID, OTHER, SELFPAY | PROVIDERS: Referring Provider Physician Assistant; Visit Provider Physician Assistant | DX: N64.4 Mastodynia (principal); Z53.9 Procedure and treatment not carried out, unspecified reason ==

== ENCOUNTER → 2020-02-22 10:41 | Outpatient (CLI) | payer MEDICAID, OTHER, SELFPAY ==
--- NOTE | 2020-02-22 11:35 | DI.US.S_ITS ---
Patient Name: HUGO YOST date: 1990 Sex: F Attending Physician: Aubrey Indications: Date: 02/22/2020 11:26 At the request of: ASHOK LEMONS Procedure: US breast LT limited LIMITED ULTRASOUND OF LEFT BREAST AND AXILLA: 02/22/2020 CLINICAL: Palpable left breast lump and focal pain. Palpable left axilla lump. No prior exams were available for comparison. Ultrasound of the left breast 2-3 o'clock, and axilla regions was performed on the area of interest. There is a normal lymph node in the left axillary tail. This normal lymph node displays fatty hilum. This correlates as palpated. IMPRESSION: BENIGN There is no sonographic evidence of malignancy. The normal lymph node is benign. This exam was interpreted at Station ID: [id number]. Electronically Signed By: Kelin Rondon M.D. lk/:02/22/2020 15:31:29 letter sent: Clinical Evaluation Ultrasound BI-RADS: 2 Benign
== END ==
PROVIDERS: PCP Physician Assistant; Referring Provider Physician Assistant; Visit Provider Physician Assistant
DX: N64.4 Mastodynia (principal); N63.21 Unspecified lump in the left breast, upper outer quadrant; N63.32 Unspecified lump in axillary tail of the left breast
CPT/HCPCS: 76642

== ENCOUNTER → 2020-11-16 16:16 | Outpatient (CLI) | payer MEDICAID, OTHER, SELFPAY ==
[2020-11-16 16:46] LABS: Add Manual Diff / Slide Review NO; Basophils Absolute Auto 100 /uL (0-100); Basophils Percent Auto 0.6 % (0-2); Eosinophils Absolute Auto 200 /uL (0-450); Eosinophils Percent Auto 1.6 % (2-4); Hemoglobin 12.5 g/dL (12.0-16.0); Lymphocytes Absolute Auto 2100 /uL (1100-4500); Lymphocytes Percent Auto 16.4 % (25-40); Mean Corpuscular HGB Conc 33.8 % (30-36); Mean Corpuscular Hemoglobin 27.5 PG (26-34); Mean Corpuscular Volume 81.4 fL (80-100); Monocytes Absolute Auto 700 /uL (0-900); Neutrophils Absolute Auto 10000 /uL (1500-7000); Neutrophils Percent Auto 76.4 % (50-75); Platelet Count 452 X10^3/uL (150-400); Red Blood Cell Count 4.55 X10^6/uL (4.0-5.2); Red Cell Distribution Width 15.1 % (11.6-14.8); White Blood Cell Count 13.1 X10^3/uL (4.5-11.0)
[2020-11-16 17:16] LABS: Appearance Urine UA CLEAR; Bilirubin Urine UA NEGATIVE (NEGATIVE); Color Urine UA YELLOW; Glucose Urine UA NEGATIVE (Negative); Ketones Urine UA TRACE (NEGATIVE); Leukocyte Esterase Urine UA NEGATIVE (NEGATIVE); Nitrite Urine UA NEGATIVE (Negative); Occult Blood Urine UA NEGATIVE (Negative); Protein Urine UA NEGATIVE (Negative); Specific Gravity Urine UA 1.025 (1.000-1.035); Urobilinogen Urine UA 0.2 E.U./dL (0.2)
[2020-11-16 17:19] LABS: pH Urine UA 5.5 (4.5-8.0)
[2020-11-16 18:00] LABS: Hepatitis B Surface Antigen NEGATIVE s/c (NEGATIVE); Rubella Antibody IgG 2.2 IU/mL (>15)
[2020-11-16 18:19] LABS: HIV 1 & 2 Ab/Ag 4th Gen Combo NEGATIVE (NEGATIVE); Hep C Virus Ab w/Reflex Quant NEGATIVE s/c (NEGATIVE)
[2020-11-17 07:52] LABS: RPR Screen Non Reactive (Non Reactive)
[2020-11-17 08:14] LABS: Varicella IgG Antibody 876 index (Immune >165)
== END ==
PROVIDERS: PCP Physician Assistant; Referring Provider Specialist; Visit Provider Specialist
DX: Z34.90 Encounter for supervision of normal pregnancy, unspecified, unspecified trimester (principal)
CPT/HCPCS: 36415; 80055; 81003; 86787; 86803; 86850; 86900; 86901; 87086; 87389

== ENCOUNTER 2020-11-22 12:29 | Emergency (ER) | payer MEDICAID, OTHER, SELFPAY ==
[2020-11-22] VITALS (10 sets, daily range): BP systolic 117–145; BP diastolic 62–96; PULSE 84–116; RESP 12–23; TEMP 37–37.2; O2SAT 98–99; BMI 33.6
--- NOTE | 2020-11-22 13:11 | DI.US.S_ITS ---
PROCEDURE: US ABDOMEN LIMITED INDICATIONS: abd pain, also ruq pain TECHNIQUE: Right upper quadrant abdominal ultrasound with image documentation. COMPARISON: [facility], US, US OB <= 14 WEEKS FETUS, 11/13/2020, 12:38. FINDINGS: Liver: Normal in size and echogenicity. Gallbladder: Nondilated. No stones or sludge. Normal gallbladder wall thickness. No pericholecystic fluid. Negative sonographic Tellez's sign. Biliary tree: CBD measures 0.5 cm. No intrahepatic biliary ductal dilatation. Pancreas: Within normal limits where visualized. Right kidney: No hydronephrosis. Miscellaneous: Living intrauterine gestation. heart rate 157 bpm. IMPRESSION: 1. No acute cholecystitis. No gallstones. 2. Living intrauterine gestation. heart rate 157 bpm. Dictated by: Rafal Gregory M.D. on 11/22/2020 at 13:50 Approved by: Rafal Gregory M.D. on 11/22/2020 at 13:56
--- NOTE | 2020-11-22 13:34 | ED.ABDPAIN ---
HPI - Abdominal Pain <Debo Echols, SPA MANAGER/ESTHETICIAN-BC - Last Filed: 11/22/20 18:44> General Chief Complaint: Abdominal Pain Stated Complaint: 15wks , sharp pain in stomach, back cramp Time Seen by Provider: 11/22/20 12:50 Source: patient Mode of arrival: Ambulatory Limitations: no limitations History of Present Illness HPI narrative: The patient is a 30 year old female nonsmoker who presents with multiple complaints today. This includes tingling in her lower legs, lower abdominal pain, back pain, and overall anxiety. She states she is going through a lot of stress at home, with issues with her car and her baby's father. She denies any dysuria urgency or frequency. She states that her pain is across her lower back. She has not taken anything for pain. She is concerned about blood pressure as she has a history of hypertension during . She denies any vaginal discharge. She states that her pain is in the right side of her abdomen, radiating up underneath her ribs and down to her pubic area. Her OBGYN is Dr. Watkins. Her most recent visit was last week. She states she had an ultrasound last week. The patient does note that she is under lot of stress at home, feels overwhelmed, does have a counselor, does states she is considering . The patient later states that she has had decreased urine output, decreased water intake and that she had some dysuria today. Related Data Home Medications Medication Instructions Recorded Confirmed ACETAMINOPHEN 650 mg PO PRN #0 12/28/12 11/13/20 omeprazole 20 mg capsule,delayed 20 mg PO DAILY 08/11/19 11/13/20 release Previous Rx's Medication Instructions Recorded VIT#96/FERROUS FUM/FA 1 tab PO QDAY #100 01/21/13 ( Vitamin) albuterol sulfate [Ventolin HFA] 0 puff INH Q4HP PRN #1 ea 08/23/17 ondansetron 4 mg PO Q6H PRN #14 tab 11/22/20 Allergies Allergy/AdvReac Type Severity Reaction Status Date / Time azithromycin Allergy Intermediate Rash Verified 11/22/20 12:47 cefixime [CEFIXIME] Allergy Unknown Verified 11/22/20 12:47 Penicillins [PENICILLINS] Allergy Unknown Hives Verified 11/22/20 12:47 promethazine [PROMETHAZINE] Allergy Unknown Verified 11/22/20 12:47 amoxicillin Allergy Verified 11/22/20 12:47 ibuprofen Allergy Unknown Verified 11/22/20 12:47 from AC12/2018 iodine Allergy Unknown Verified 11/22/20 12:47 from AC12/2018 sumatriptan AdvReac Intermediate Dizzyness Verified 11/22/20 12:47 Review of Systems <KASIE Blake - Last Filed: 11/22/20 18:44> Review of Systems Narrative: GENERAL: Denies chills, fatigue, malaise, fever, sweats. HEENT: Denies sinus pain, ear pain, sore throat, difficulty swallowing, dizziness. RESPIRATORY: Denies dyspnea, cough, wheezing, hemoptysis, sputum. CARDIOVASCULAR: Denies chest pain, palpitations, orthopnea, edema, GASTROINTESTINAL: See HPI : See HPI MUSCULOSKELETAL: denies weakness, joint pain, or bony pain SKIN: Denies rash, skin lesions, or other NEUROLOGIC: Denies weakness, headache, numbness, change in speech, confusion, seizures, incoordination. PSYCHIATRIC: No concerning psychosocial issues. 12 point review of systems is negative except for those stated above Patient History <KASIE Blake - Last Filed: 11/22/20 18:44> Medical History Allergic rhinitis Alopecia (~04/02/20) Asthma Chalazion Chronic headache Depressive disorder Essential hypertension (~07/2019) Genital herpes (~2012) GERD (gastroesophageal reflux disease) HSV-1 (herpes simplex virus 1) infection (~2012) Hypertension Iron deficiency (~09/13/20) 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 Grandmother Hypertension Grandfather No problems noted. Grandmother No problems noted. Grandfather No problems noted. Family/Other Thyroiditis Social History marital status: unknown Smoking Status: Never smoker Smoking Status: Never smoker alcohol intake frequency: holidays/special occasions only Substance Use Type: does not use and marijuana Exam <KASIE Blake - Last Filed: 11/22/20 18:44> Narrative Exam Narrative: GENERAL: This is a well-nourished, well-developed patient, appears teary HEAD: Atraumatic. Normocephalic. No temporal or scalp tenderness. EYES: Pupils equal round and reactive. Extraocular motions intact. No scleral icterus. No injection or drainage. ENT: Nose without bleeding, purulent drainage or septal hematoma. Wearing a mask Uvula midline. Airway patent. NECK: Trachea midline. No JVD or lymphadenopathy. Supple, nontender, no meningeal signs. CARDIOVASCULAR: Regular rate and rhythm RESPIRATORY: Clear to auscultation. Breath sounds equal bilaterally. No wheezes, rales, or rhonchi. No cough. No increased respiratory effort. No accessory muscle use. GASTROINTESTINAL: Abdomen soft, diffusely tender to palpation right side right lower quadrant, right upper quadrant, nondistended. No hepato-splenomegaly, or palpable masses. No guarding. Active bowel sounds all 4 quadrants. On repeat exam, abdominal pain has moved to left side. No peritoneal signs, negative heel tap test EXTREMITIES: No clubbing, cyanosis, or edema. No joint tenderness, effusion, or edema noted. BACK: Nontender without deformity or crepitance. No flank tenderness. NEURO: AOx3. SKIN: No rash or erythema on visible skin Initial Vital Signs Initial Vital Signs: Vital Signs Temperature 99.0 F 11/22/20 12:45 Pulse Rate 116 H 11/22/20 12:45 Respiratory Rate 15 11/22/20 12:45 Blood Pressure 140/74 11/22/20 12:45 Pulse Oximetry 98 11/22/20 12:45 <Dorian Saunders DO - Last Filed: 11/22/20 19:00> Initial Vital Signs Initial Vital Signs: Vital Signs Temperature 99.0 F 11/22/20 12:45 Pulse Rate 116 H 11/22/20 12:45 Respiratory Rate 15 11/22/20 12:45 Blood Pressure 140/74 11/22/20 12:45 Pulse Oximetry 98 11/22/20 12:45 Scores <KASIE Blake - Last Filed: 11/22/20 18:44> GCS Betty coma scale eye opening: Spontaneous Betty coma scale verbal response: Orientated [place] coma scale motor response: Obey commands [place] coma scale total score: 15 Course <KASIE Blake - Last Filed: 11/22/20 18:44> Orders Ordered: ED Orders 11/22/20 13:11 US abdomen limited Stat 11/22/20 13:14 EKG-12 Lead Stat 11/22/20 13:50 ABO RH Type Stat Complete Blood Count AUTO DIFF Stat Comprehensive Metabolic Panel Stat HCG Quantitative /Beta subunit Stat Magnesium Stat 11/22/20 14:30 Urinalysis and Microscopic Stat Discontinued Medications Acetaminophen (Acetaminophen 325 Mg Tablet) 975 mg PO NOW ONE Stop: 11/22/20 16:50 Last Admin: 11/22/20 17:02 Dose: 975 mg Documented by: VALDO Sodium Chloride (Normal Saline 0.9%) 1,000 mls @ 1,000 mls/hr IV BOLUS ONE Stop: 11/22/20 14:12 Last Infusion: 11/22/20 14:57 Dose: 0 mls/hr Documented by: Admin: 11/22/20 13:52 Dose: 1,000 mls/hr Documented by: VALDO Sodium Chloride (Normal Saline 0.9%) 1,000 mls @ 1,000 mls/hr IV BOLUS ONE Stop: 11/22/20 15:53 Last Infusion: 11/22/20 16:17 Dose: 0 mls/hr Documented by: Admin: 11/22/20 15:01 Dose: 1,000 mls/hr Documented by: VALDO Ondansetron HCl (Ondansetron 4 Mg/2 Ml Inj) 4 mg IV NOW ONE Stop: 11/22/20 13:14 Last Admin: 11/22/20 13:51 Dose: 4 mg Documented by: VALDO Ondansetron HCl (Ondansetron 4 Mg/2 Ml Inj) 4 mg IV NOW ONE Stop: 11/22/20 17:09 Last Admin: 11/22/20 17:20 Dose: 4 mg Documented by: VALDO Vital Signs Vital signs: Vital Signs - 8 hr 11/22/20 12:45 11/22/20 15:22 11/22/20 15:30 Temperature 99.0 F Pulse Rate 116 H 88 97 H Respiratory Rate 15 18 17 Blood Pressure 140/74 Pulse Oximetry 98 11/22/20 15:31 11/22/20 15:53 11/22/20 16:00 Temperature 98.6 F Pulse Rate 91 H 85 Respiratory Rate 12 18 15 Blood Pressure 122/62 Pulse Oximetry 99 11/22/20 16:30 11/22/20 17:00 11/22/20 17:01 Temperature Pulse Rate 85 87 90 Respiratory Rate 23 22 22 Blood Pressure 132/89 117/96 H Pulse Oximetry 11/22/20 17:30 Temperature Pulse Rate 84 Respiratory Rate Blood Pressure 145/85 H Pulse Oximetry <Dorian Saunders, - Last Filed: 11/22/20 19:00> Orders Ordered: ED Orders 11/22/20 13:11 US abdomen limited Stat 11/22/20 13:14 EKG-12 Lead Stat 11/22/20 13:50 ABO RH Type Stat Complete Blood Count AUTO DIFF Stat Comprehensive Metabolic Panel Stat HCG Quantitative /Beta subunit Stat Magnesium Stat 11/22/20 14:30 Urinalysis and Microscopic Stat Discontinued Medications Acetaminophen (Acetaminophen 325 Mg Tablet) 975 mg PO NOW ONE Stop: 11/22/20 16:50 Last Admin: 11/22/20 17:02 Dose: 975 mg Documented by: VALDO Sodium Chloride (Normal Saline 0.9%) 1,000 mls @ 1,000 mls/hr IV BOLUS ONE Stop: 11/22/20 14:12 Last Infusion: 11/22/20 14:57 Dose: 0 mls/hr Documented by: Admin: 11/22/20 13:52 Dose: 1,000 mls/hr Documented by: VALDO Sodium Chloride (Normal Saline 0.9%) 1,000 mls @ 1,000 mls/hr IV BOLUS ONE Stop: 11/22/20 15:53 Last Infusion: 11/22/20 16:17 Dose: 0 mls/hr Documented by: Admin: 11/22/20 15:01 Dose: 1,000 mls/hr Documented by: VALDO Ondansetron HCl (Ondansetron 4 Mg/2 Ml Inj) 4 mg IV NOW ONE Stop: 11/22/20 13:14 Last Admin: 11/22/20 13:51 Dose: 4 mg Documented by: VALDO Ondansetron HCl (Ondansetron 4 Mg/2 Ml Inj) 4 mg IV NOW ONE Stop: 11/22/20 17:09 Last Admin: 11/22/20 17:20 Dose: 4 mg Documented by: VALDO Vital Signs Vital signs: Vital Signs - 8 hr 11/22/20 12:45 11/22/20 15:22 11/22/20 15:30 Temperature 99.0 F Pulse Rate 116 H 88 97 H Respiratory Rate 15 18 17 Blood Pressure 140/74 Pulse Oximetry 98 11/22/20 15:31 11/22/20 15:53 11/22/20 16:00 Temperature 98.6 F Pulse Rate 91 H 85 Respiratory Rate 12 18 15 Blood Pressure 122/62 Pulse Oximetry 99 11/22/20 16:30 11/22/20 17:00 11/22/20 17:01 Temperature Pulse Rate 85 87 90 Respiratory Rate 23 22 22 Blood Pressure 132/89 117/96 H Pulse Oximetry 11/22/20 17:30 Temperature Pulse Rate 84 Respiratory Rate Blood Pressure 145/85 H Pulse Oximetry MDM - Abdominal Pain <GULSHAN Blake- - Last Filed: 11/22/20 18:44> Lab Data Attestation: I reviewed the patient's lab results. Result diagrams: 11/22/20 13:50 11/22/20 13:50 Labs: Lab Results 11/22/20 11/22/20 11/22/20 Range/Units 13:50 13:50 13:50 WBC 17.0 H (4.5-11.0) X10^3/uL RBC 4.42 (4.0-5.2) X10^6/uL Hgb 12.0 (12.0-16.0) g/dL Hct 35.4 L (36-46) % MCV 80.0 (80-100) fL MCH 27.1 (26-34) PG MCHC 33.9 (30-36) % RDW 15.1 H (11.6-14.8) % Plt Count 477 H (150-400) X10^3/uL Neut % (Auto) 80.2 H (50-75) % Lymph % (Auto) 13.2 L (25-40) % [place] % (Auto) 5.0 (3-14) % Eos % (Auto) 0.8 L (2-4) % Baso % (Auto) 0.8 (0-2) % Neut # (Auto) 88524 H (2733-8137) /uL Lymph # (Auto) 2300 (3125-3819) /uL [place] # (Auto) 900 (0-900) /uL Eos # (Auto) 100 (0-450) /uL Baso # (Auto) 100 (0-100) /uL Sodium 136 L (137-145) mmol/L Potassium 3.3 L (3.4-5.1) mmol/L Chloride 106 (98-107) mmol/L Carbon Dioxide 21 L (22-32) mmol/L BUN 3 L (7-17) mg/dL Creatinine 0.39 L (0.52-1.04) mg/dL Estimated GFR > 60.0 (>60) mL/min BUN/Creatinine Ratio 7.7 (6-22) Glucose 116 H (70-100) mg/dL Calcium 9.0 (8.4-10.2) mg/dL Magnesium (1.6-2.3) mg/dL Total Bilirubin 0.1 L (0.2-1.3) mg/dL AST 18 (14-36) IU/L ALT 14 (<35) IU/L Alkaline Phosphatase 69 (38-126) U/L Total Protein 7.4 (6.3-8.2) g/dL Albumin 3.7 (3.5-5.0) g/dL Globulin 3.7 (1.7-4.1) g/dL Albumin/Globulin Ratio 1.0 (1.0-2.8) HCG, Quant 38237 mIU/mL Urine Color Urine Appearance Urine pH (4.5-8.0) Ur Specific [place] (1.000-1.035) Urine Protein (Negative) Urine Glucose (UA) (Negative) g/dL Urine Ketones (NEGATIVE) Urine Occult Blood (Negative) Urine Nitrate (Negative) Urine Bilirubin (NEGATIVE) Urine Urobilinogen (0.2) E.U./dL Ur Leukocyte Esterase (NEGATIVE) Urine RBC (0-5/HPF) Urine WBC (0-5/HPF) Ur Squamous Epith Cells (0-5/HPF) Uric Acid Crystals (None) Amorphous Sediment Urine Bacteria (None) Urine Mucus (Negative) Ur Culture Indicated? Blood Type O Positive 11/22/20 11/22/20 Range/Units 13:50 14:30 WBC (4.5-11.0) X10^3/uL RBC (4.0-5.2) X10^6/uL Hgb (12.0-16.0) g/dL Hct (36-46) % MCV (80-100) fL MCH (26-34) PG MCHC (30-36) % RDW (11.6-14.8) % Plt Count (150-400) X10^3/uL Neut % (Auto) (50-75) % Lymph % (Auto) (25-40) % [place] % (Auto) (3-14) % Eos % (Auto) (2-4) % Baso % (Auto) (0-2) % Neut # (Auto) (2239-7570) /uL Lymph # (Auto) (2575-4524) /uL [place] # (Auto) (0-900) /uL Eos # (Auto) (0-450) /uL Baso # (Auto) (0-100) /uL Sodium (137-145) mmol/L Potassium (3.4-5.1) mmol/L Chloride (98-107) mmol/L Carbon Dioxide (22-32) mmol/L BUN (7-17) mg/dL Creatinine (0.52-1.04) mg/dL Estimated GFR (>60) mL/min BUN/Creatinine Ratio (6-22) Glucose (70-100) mg/dL Calcium (8.4-10.2) mg/dL Magnesium 1.9 (1.6-2.3) mg/dL Total Bilirubin (0.2-1.3) mg/dL AST (14-36) IU/L ALT (<35) IU/L Alkaline Phosphatase (38-126) U/L Total Protein (6.3-8.2) g/dL Albumin (3.5-5.0) g/dL Globulin (1.7-4.1) g/dL Albumin/Globulin Ratio (1.0-2.8) HCG, Quant mIU/mL Urine Color Yellow Urine Appearance Clear Urine pH 6.5 (4.5-8.0) Ur Specific [place] 1.025 (1.000-1.035) Urine Protein Negative (Negative) Urine Glucose (UA) Negative (Negative) g/dL Urine Ketones Negative (NEGATIVE) Urine Occult Blood Negative (Negative) Urine Nitrate Negative (Negative) Urine Bilirubin Negative (NEGATIVE) Urine Urobilinogen 0.2 (0.2) E.U./dL Ur Leukocyte Esterase Negative (NEGATIVE) Urine RBC None seen (0-5/HPF) Urine WBC 0-1/hpf (0-5/HPF) Ur Squamous Epith Cells 1-5 /hpf D (0-5/HPF) Uric Acid Crystals Moderate H (None) Amorphous Sediment 1+ Urine Bacteria None seen (None) Urine Mucus 1+ H (Negative) Ur Culture Indicated? Cult not indicated Blood Type Imaging Data US - OB: Radiologist's Impression: [address] [place] [id number] ReportSigned Patient: Elvia Etienne [facility]#: [id number]: 1990Acct:[id number]/Sex: 30 / FDate of Service: 11/22/20Loc: EDAccession Number: [id number] Procedure: US abdomen limited Ordering Provider: Debo Echols PROCEDURE: US ABDOMEN LIMITED INDICATIONS: abd pain, also ruq pain TECHNIQUE: Right upper quadrant abdominal ultrasound with image documentation. COMPARISON: [facility], US, US OB <= 14 WEEKS FETUS, 11/13/2020, 12:38. FINDINGS: Liver: Normal in size and echogenicity. Gallbladder: Nondilated. No stones or sludge. Normal gallbladder wall thickness. No pericholecystic fluid. Negative sonographic Tellez's sign. Biliary tree: CBD measures 0.5 cm. No intrahepatic biliary ductal dilatation. Pancreas: Within normal limits where visualized. Right kidney: No hydronephrosis. Miscellaneous: Living intrauterine gestation. heart rate 157 bpm. IMPRESSION: 1. No acute cholecystitis. No gallstones. 2. Living intrauterine gestation. heart rate 157 bpm. Dictated by: Rafal Gregory M.D. on 11/22/2020 at 13:50 Approved by: Rafal Gregory M.D. on 11/22/2020 at 13:56 MDM Narrative Medical decision making narrative: The patient is a 30-year-old female who presents 15 weeks with a chief complaint of abdominal pain as well as accessory complaints of numbness and tingling in her lower extremities, anxiety. However she felt much improved after the above-stated therapies, particularly the IV fluid in Zofran. On exam, her abdominal pain moves around, she has no guarding on exam, no peritoneal signs. She does have leukocytosis, but is afebrile and requesting food multiple times. I discussed at length the importance of follow-up with primary care provider as well as OBGYN. Given her complaints of anxiety, I did speak with JACK MACHINE OPERATOR, though the patient did not want to see her. She does have a counselor as an outpatient. However I did call and speak with Dr. Watkins, and we are able to schedule her for a follow-up appointment on the . However I did discuss at length with the patient that we wanted to hold off on unnecessary radiation given that she is 15 weeks . I discussed the patient and her labs at length with Dr. Saunders, who is in accordance with plan of care. I did discussed at length very strict ER return precautions for her including fever, inability keep down fluids etcetera. The patient is able to tolerate p.o. ice chips prior to discharge. She is requesting food, discussed taking small frequent sips rather than drinking large amounts. She did vomit once after drinking a large amount of fluid quickly in the emergency department, but was able to tolerate p.o. after. Patient has no questions or concerns upon discharge states understanding of return precautions as well as follow-up care. <Dorian Saunders, DO - Last Filed: 11/22/20 19:00> Lab Data Labs: Lab Results 11/22/20 11/22/20 11/22/20 Range/Units 13:50 13:50 13:50 WBC 17.0 H (4.5-11.0) X10^3/uL RBC 4.42 (4.0-5.2) X10^6/uL Hgb 12.0 (12.0-16.0) g/dL Hct 35.4 L (36-46) % MCV 80.0 (80-100) fL MCH 27.1 (26-34) PG MCHC 33.9 (30-36) % RDW 15.1 H (11.6-14.8) % Plt Count 477 H (150-400) X10^3/uL Neut % (Auto) 80.2 H (50-75) % Lymph % (Auto) 13.2 L (25-40) % [place] % (Auto) 5.0 (3-14) % Eos % (Auto) 0.8 L (2-4) % Baso % (Auto) 0.8 (0-2) % Neut # (Auto) 32267 H (3021-2398) /uL Lymph # (Auto) 2300 (2830-5563) /uL [place] # (Auto) 900 (0-900) /uL Eos # (Auto) 100 (0-450) /uL Baso # (Auto) 100 (0-100) /uL Sodium 136 L (137-145) mmol/L Potassium 3.3 L (3.4-5.1) mmol/L Chloride 106 (98-107) mmol/L Carbon Dioxide 21 L (22-32) mmol/L BUN 3 L (7-17) mg/dL Creatinine 0.39 L (0.52-1.04) mg/dL Estimated GFR > 60.0 (>60) mL/min BUN/Creatinine Ratio 7.7 (6-22) Glucose 116 H (70-100) mg/dL Calcium 9.0 (8.4-10.2) mg/dL Magnesium (1.6-2.3) mg/dL Total Bilirubin 0.1 L (0.2-1.3) mg/dL AST 18 (14-36) IU/L ALT 14 (<35) IU/L Alkaline Phosphatase 69 (38-126) U/L Total Protein 7.4 (6.3-8.2) g/dL Albumin 3.7 (3.5-5.0) g/dL Globulin 3.7 (1.7-4.1) g/dL Albumin/Globulin Ratio 1.0 (1.0-2.8) HCG, Quant 31016 mIU/mL Urine Color Urine Appearance Urine pH (4.5-8.0) Ur Specific [place] (1.000-1.035) Urine Protein (Negative) Urine Glucose (UA) (Negative) g/dL Urine Ketones (NEGATIVE) Urine Occult Blood (Negative) Urine Nitrate (Negative) Urine Bilirubin (NEGATIVE) Urine Urobilinogen (0.2) E.U./dL Ur Leukocyte Esterase (NEGATIVE) Urine RBC (0-5/HPF) Urine WBC (0-5/HPF) Ur Squamous Epith Cells (0-5/HPF) Uric Acid Crystals (None) Amorphous Sediment Urine Bacteria (None) Urine Mucus (Negative) Ur Culture Indicated? Blood Type O Positive 11/22/20 11/22/20 Range/Units 13:50 14:30 WBC (4.5-11.0) X10^3/uL RBC (4.0-5.2) X10^6/uL Hgb (12.0-16.0) g/dL Hct (36-46) % MCV (80-100) fL MCH (26-34) PG MCHC (30-36) % RDW (11.6-14.8) % Plt Count (150-400) X10^3/uL Neut % (Auto) (50-75) % Lymph % (Auto) (25-40) % [place] % (Auto) (3-14) % Eos % (Auto) (2-4) % Baso % (Auto) (0-2) % Neut # (Auto) (8834-5666) /uL Lymph # (Auto) (8516-2493) /uL [place] # (Auto) (0-900) /uL Eos # (Auto) (0-450) /uL Baso # (Auto) (0-100) /uL Sodium (137-145) mmol/L Potassium (3.4-5.1) mmol/L Chloride (98-107) mmol/L Carbon Dioxide (22-32) mmol/L BUN (7-17) mg/dL Creatinine (0.52-1.04) mg/dL Estimated GFR (>60) mL/min BUN/Creatinine Ratio (6-22) Glucose (70-100) mg/dL Calcium (8.4-10.2) mg/dL Magnesium 1.9 (1.6-2.3) mg/dL Total Bilirubin (0.2-1.3) mg/dL AST (14-36) IU/L ALT (<35) IU/L Alkaline Phosphatase (38-126) U/L Total Protein (6.3-8.2) g/dL Albumin (3.5-5.0) g/dL Globulin (1.7-4.1) g/dL Albumin/Globulin Ratio (1.0-2.8) HCG, Quant mIU/mL Urine Color Yellow Urine Appearance Clear Urine pH 6.5 (4.5-8.0) Ur Specific [place] 1.025 (1.000-1.035) Urine Protein Negative (Negative) Urine Glucose (UA) Negative (Negative) g/dL Urine Ketones Negative (NEGATIVE) Urine Occult Blood Negative (Negative) Urine Nitrate Negative (Negative) Urine Bilirubin Negative (NEGATIVE) Urine Urobilinogen 0.2 (0.2) E.U./dL Ur Leukocyte Esterase Negative (NEGATIVE) Urine RBC None seen (0-5/HPF) Urine WBC 0-1/hpf (0-5/HPF) Ur Squamous Epith Cells 1-5 /hpf D (0-5/HPF) Uric Acid Crystals Moderate H (None) Amorphous Sediment 1+ Urine Bacteria None seen (None) Urine Mucus 1+ H (Negative) Ur Culture Indicated? Cult not indicated Blood Type Discharge Plan Departure Patient Disposition: Home Clinical Impression: Nausea Abdominal pain Qualifiers: Abdominal location: generalized Qualified Code(s): R10.84 - Generalized abdominal pain Instructions: Nausea of (Alternative Therapy), DI for Abdominal Pain-Adult, DI for Vomiting -- Adult, Kathrin May Improve Nausea Symptoms in Activity Restrictions/Additional Instructions: Thank you for trusting us with your care today As discussed, please follow-up with primary care provider. You have an appointment with Dr. Watkins on the at 12:15 p.m. Please follow-up with Dr. Watkins as well as your primary care I have given you a prescription for ondansetron for nausea. I sent this to [facility]. Please be aware that this can be constipating. As discussed, please focus on ice chips and clear liquids tonight. Take small sips frequently. Do not eat or drink large amounts at once. As discussed, please come back to the emergency department for any acute concerns. This includes inability keep down fluids, abdominal pain with fever, sudden worsening abdominal pain etcetera Prescriptions: New ondansetron 4 mg tablet,disintegrating 4 mg PO Q6H PRN (Reason: nausea and vomiting) Qty: 14 RF: 0 No Action ACETAMINOPHEN 650 mg PO PRN Qty: 0 RF: 0 VIT#96/FERROUS FUM/FA ( Vitamin) 1 tab PO QDAY Qty: 100 RF: 3 albuterol sulfate [Ventolin HFA] 90 MCG/PUFF HFA aerosol inhaler 0 puff INH Q4HP PRNQty: 1 RF: 0 omeprazole 20 mg capsule,delayed release(DR/EC) 20 mg PO DAILY RF: 0 Referrals: Tony Burgos PA-C [Primary Care Provider] - <Dorian Saunders DO - Last Filed: 11/22/20 19:00> Cosign ED Attending Cosignature Attestation: Dr Saunders Co-Sign Statement: I was available for consultation during this patient's emergency department visit. This chart is signed by myself for administrative purposes only. I did not have direct contact with this patient during this visit. They were seen independently by the APC.
[2020-11-22] MEDS: ONDANSETRON 4 MG/2 ML INJ IV ×2 (13:51→17:20)
[2020-11-22] MEDS: SODIUM CHLORIDE 0.9% 1,000 ML 1000 ML IV ×2 (13:52→15:01)
[2020-11-22 14:06] LABS: Add Manual Diff / Slide Review NO; Basophils Absolute Auto 100 /uL (0-100); Basophils Percent Auto 0.8 % (0-2); Eosinophils Absolute Auto 100 /uL (0-450); Eosinophils Percent Auto 0.8 % (2-4); Hematocrit 35.4 % (36-46); Lymphocytes Absolute Auto 2300 /uL (1100-4500); Lymphocytes Percent Auto 13.2 % (25-40); Mean Corpuscular HGB Conc 33.9 % (30-36); Mean Corpuscular Hemoglobin 27.1 PG (26-34); Monocytes Absolute Auto 900 /uL (0-900); Neutrophils Absolute Auto 13700 /uL (1500-7000); Neutrophils Percent Auto 80.2 % (50-75); Platelet Count 477 X10^3/uL (150-400); Red Blood Cell Count 4.42 X10^6/uL (4.0-5.2); Red Cell Distribution Width 15.1 % (11.6-14.8)
[2020-11-22 14:49] LABS: Bacteria Urine None Seen; RBC Urine None Seen (0-5/HPF)
[2020-11-22 14:55] LABS: Alanine Aminotransferase 14 IU/L (<35); Albumin 3.7 g/dL (3.5-5.0); Alkaline Phosphatase 69 U/L (38-126); Aspartate Aminotransferase 18 IU/L (14-36); BUN Creatinine Ratio 7.7 (6-22); Bilirubin Total 0.1 mg/dL (0.2-1.3); Blood Urea Nitrogen 3 mg/dL (7-17); Carbon Dioxide 21 mmol/L (22-32); Chloride 106 mmol/L (98-107); Estimated Glomerular Filt Rate > 60.0 mL/min (>60); Globulin 3.7 g/dL (1.7-4.1); Glucose 116 mg/dL (70-100); HEMOLYSIS < 15 (0-50); Potassium 3.3 mmol/L (3.4-5.1); Sodium 136 mmol/L (137-145); Total Protein 7.4 g/dL (6.3-8.2)
[2020-11-22 14:56] LABS: Magnesium 1.9 mg/dL (1.6-2.3)
[2020-11-22 15:36] LABS: HCG Quantitative /Beta subunit 44611 mIU/mL
[2020-11-22 15:45] LABS: Appearance Urine UA CLEAR; Bilirubin Urine UA NEGATIVE (NEGATIVE); Color Urine UA YELLOW; Glucose Urine UA NEGATIVE (Negative); Ketones Urine UA NEGATIVE (NEGATIVE); Leukocyte Esterase Urine UA NEGATIVE (NEGATIVE); Nitrite Urine UA NEGATIVE (Negative); Occult Blood Urine UA NEGATIVE (Negative); Protein Urine UA NEGATIVE (Negative); Specific Gravity Urine UA 1.025 (1.000-1.035); Urobilinogen Urine UA 0.2 E.U./dL (0.2)
[2020-11-22 15:50] LABS: pH Urine UA 6.5 (4.5-8.0)
[2020-11-22 16:03] LABS: Amorphous Sediment Urine 1+; Culture Indicated Urine Cult Not Indicated; Mucus Urine 1+ (Negative); Squamous Epithelial Cell Urine 1-5 /HPF (0-5/HPF); Uric Acid Crystals Urine Moderate; WBC Urine 0-1/HPF (0-5/HPF)
[2020-11-22] MEDS: ACETAMINOPHEN 325 MG TABLET 975 MG PO (17:02)
== END 2020-11-22 17:57 | disposition home or self-care (01) ==
PROVIDERS: Emergency Provider Nurse Practitioner Family; PCP Physician Assistant
DX: O26.892 Other specified pregnancy related conditions, second trimester (principal); R10.84 Generalized abdominal pain; R11.0 Nausea; R20.2 Paresthesia of skin; R10.30 Lower abdominal pain, unspecified; F41.9 Anxiety disorder, unspecified; Z3A.15 15 weeks gestation of pregnancy
CPT/HCPCS: 36415; 76705; 80053; 81001; 83735; 84702; 85025; 86900; 86901; 93005; 96361; 96374; 96376; 99284; J2405

== ENCOUNTER → 2020-12-04 13:02 | Outpatient (CLI) | payer MEDICAID, OTHER, SELFPAY ==
[2020-12-04 13:34] LABS: Add Manual Diff / Slide Review NO; Basophils Absolute Auto 100 /uL (0-100); Basophils Percent Auto 0.7 % (0-2); Eosinophils Absolute Auto 100 /uL (0-450); Eosinophils Percent Auto 0.7 % (2-4); Hematocrit 36.4 % (36-46); Hemoglobin 12.3 g/dL (12.0-16.0); Lymphocytes Absolute Auto 2400 /uL (1100-4500); Mean Corpuscular HGB Conc 33.7 % (30-36); Mean Corpuscular Hemoglobin 26.8 PG (26-34); Mean Corpuscular Volume 79.4 fL (80-100); Monocytes Absolute Auto 800 /uL (0-900); Monocytes Percent Auto 5.2 % (3-14); Neutrophils Absolute Auto 12400 /uL (1500-7000); Neutrophils Percent Auto 78.4 % (50-75); Platelet Count 504 X10^3/uL (150-400); Red Blood Cell Count 4.59 X10^6/uL (4.0-5.2); Red Cell Distribution Width 15.3 % (11.6-14.8); White Blood Cell Count 15.8 X10^3/uL (4.5-11.0)
[2020-12-04 14:47] LABS: TSH w/ Reflex to FT4 0.54 uIU/mL (0.47-4.68)
== END ==
PROVIDERS: PCP Physician Assistant; Referring Provider Specialist; Visit Provider Specialist
DX: R00.0 Tachycardia, unspecified (principal); D72.829 Elevated white blood cell count, unspecified
CPT/HCPCS: 36415; 84443; 85025

== ENCOUNTER → 2020-12-20 10:42 | Outpatient (CLI) | payer MEDICAID, OTHER, SELFPAY ==
--- NOTE | 2020-12-20 10:44 | DI.US.S_ITS ---
PROCEDURE: US OB >= 14 WEEKS FETUS INDICATIONS: 20 week anatomy OUTSIDE/PRIOR DATING DATA: Last menstrual period (LMP): 07/30/2020. LMP-based estimated date of delivery (EDER): 05/06/2021 . First dating scan (date and location): 11/13/2020 . Estimated date of delivery (EDER) from first dating scan: 05/16/2021 . TECHNIQUE: Real-time scanning was performed of the fetus, with image documentation and biometric measurements. COMPARISON: [facility], , OB >= 14 WEEKS FETUS, 12/04/2020, 12:51. FINDINGS: General: A single living intrauterine gestation is present. Presentation: Variable Placenta: Placental position is posterior , without previa. Amniotic fluid index: 10.2 cm, normal range is 5-24 cm. heart rate: 169 beats per minute. Maternal cervical canal: 6.3 cm long. Normal lower limit is 2.5 cm. biometrics: Biparietal diameter: 4.1 cm, 18 weeks 4 days Head circumference: 16.2 cm, 19 weeks 0 days Abdominal circumference: 13.6 cm, 19 weeks 0 days Femur length: 3.1 cm, 19 weeks 3 days Estimated gestational age from initial scan: 19 weeks 0 days Composite gestational age from present scan: 19 weeks 0 days Estimated weight and percentile: 278 g corresponding to the 56 percentile Measurement variability for biometric dating: +/- 7 days from 14 weeks to 15 weeks 6 days gestation, +/- 10 days from 16 weeks to 21 weeks 6 days gestation, +/- 2 weeks from 22 weeks to 27 weeks 6 days gestation, +/- 3 weeks for 28 weeks gestation or later. weight reference: 4500 g or EFW >90/95% is considered macrosomia or large for gestational age. EFW <10% is small for gestational age. EFW 5% or less is considered intra-uterine growth restriction. Anatomic survey: Neuro: Ventricles are non-dilated at less than 10 mm. Cisterna magna is normal at 3-11 mm. Cerebellum is normal in size and morphology. Nuchal skin fold: Normal at less than 6 mm between 14-21 weeks gestational age. Face: Nose and lips, facial profile are normal. Spine: Not well seen. Heart: 4-chambered heart and cardiac outflow tracts are not well seen. Diaphragm: Diaphragm is intact. Stomach: Left-sided stomach is present. Kidneys: No hydronephrosis. Normal is less than 5 mm in 2nd trimester, less than 7 mm in 3rd trimester. Cord: 3-vessel cord has orthotopic insertion. Bladder: Normal in size. Extremities: All 4 extremities identified. IMPRESSION: 1. Single living intrauterine demonstrating appropriate interval growth with estimated weight at the 56th percentile. 2. spine and heart structures not well seen due to maternal body habitus and position. anatomic survey otherwise appears within normal limits. Recommend a repeat study in 2-4 weeks for further evaluation if clinically indicated. Dictated by: Leonard Henriquez M.D. on 12/20/2020 at 17:50 Approved by: Leonard Henriquez M.D. on 12/20/2020 at 17:53
== END ==
PROVIDERS: PCP Physician Assistant; Referring Provider Specialist; Visit Provider Specialist
DX: Z36.89 Encounter for other specified antenatal screening (principal); O99.891 Other specified diseases and conditions complicating pregnancy; R00.0 Tachycardia, unspecified; Z3A.19 19 weeks gestation of pregnancy
CPT/HCPCS: 76811

== ENCOUNTER 2021-01-09 20:41 | Outpatient (CLI) | payer MEDICAID, OTHER, SELFPAY ==
[2021-01-09 21:33] LABS: Appearance Urine UA CLEAR; Bilirubin Urine UA NEGATIVE (NEGATIVE); Color Urine UA YELLOW; Glucose Urine UA NEGATIVE (Negative); Ketones Urine UA NEGATIVE (NEGATIVE); Leukocyte Esterase Urine UA NEGATIVE (NEGATIVE); Nitrite Urine UA NEGATIVE (Negative); Occult Blood Urine UA NEGATIVE (Negative); Protein Urine UA NEGATIVE (Negative); Specific Gravity Urine UA <=1.005 (1.000-1.035); Urobilinogen Urine UA 0.2 E.U./dL (0.2); pH Urine UA 6.5 (4.5-8.0)
--- NOTE | 2021-01-10 07:07 | PM.OBTRLD ---
Visit Information Visit Information Date of evaluation: 01/09/21 Primary OB Provider: Cristina Watkins On-call OB Provider: Nohemi Mcguire Reason for Evaluation: Yes other Comments/Additional reasons for admission: 30YO @ 22wks here for evaluation. was experiencing high abdominal and low back pain with dizziness. has someone at [facility] check her BP and says it was 184/94. Pain and dizziness have resolved. Vital Signs Vital Signs: BP 109/56, HR 96bpm, T 987.1F Temporal PFSH Medical History Allergic rhinitis Alopecia (~04/02/20) Asthma Chalazion Chronic headache Depressive disorder Essential hypertension (~07/2019) Genital herpes (~2012) GERD (gastroesophageal reflux disease) HSV-1 (herpes simplex virus 1) infection (~2012) Hypertension Iron deficiency (~09/13/20) 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 Grandmother Hypertension Grandfather No problems noted. Grandmother No problems noted. Grandfather No problems noted. Family/Other Thyroiditis Social History marital status: unknown Smoking Status: Never smoker Exam Vital Signs (past 8 hours): see above Other: FHR 150bpm, +FM Objective Labs Labs: Laboratory Results - last 24 hr 01/09/21 21:20 Urine Color Yellow Urine Appearance Clear Urine pH 6.5 Ur Specific [place] <=1.005 Urine Protein Negative Urine Glucose (UA) Negative Urine Ketones Negative Urine Occult Blood Negative Urine Nitrate Negative Urine Bilirubin Negative Urine Urobilinogen 0.2 Ur Leukocyte Esterase Negative Evaluation Evaluation Baseline heart rate: 150 Laboratory results: Laboratory Tests 01/09/21 21:20 Urine Color Yellow Urine Appearance Clear Urine pH 6.5 Ur Specific [place] <=1.005 Urine Protein Negative Urine Glucose (UA) Negative Urine Ketones Negative Urine Occult Blood Negative Urine Nitrate Negative Urine Bilirubin Negative Urine Urobilinogen 0.2 Ur Leukocyte Esterase Negative Diagnosis, Plan/Disposition Final Diagnosis (1) : Status: Acute (2) Suspected problem with mother not found: Status: Acute Plan/Disposition Plan: Given resolution of concerns, patient was discharge to home with reassurance of normal BPs and recommended to follow up with as previously scheduled.
== END 2021-01-09 21:25 | disposition home or self-care (01) ==
LOC: OB 01-11 08:46
PROVIDERS: PCP Physician Assistant; Referring Provider Nurse Practitioner Obstetrics & Gynecology; Visit Provider Nurse Practitioner Obstetrics & Gynecology
DX: O10.912 Unspecified pre-existing hypertension complicating pregnancy, second trimester (principal); O26.892 Other specified pregnancy related conditions, second trimester; R10.10 Upper abdominal pain, unspecified; M54.5 Low back pain; R42 Dizziness and giddiness; Z3A.22 22 weeks gestation of pregnancy
CPT/HCPCS: 59025; 81003; G0378; G0379

== ENCOUNTER 2021-01-24 21:47 | Observation (INO) | payer MEDICAID, OTHER, SELFPAY ==
[2021-01-24 22:46] LABS: Add Manual Diff / Slide Review NO; Basophils Absolute Auto 0 /uL (0-100); Basophils Percent Auto 0.1 % (0-2); Eosinophils Absolute Auto 0 /uL (0-450); Eosinophils Percent Auto 0.1 % (2-4); Hematocrit 33.8 % (36-46); Hemoglobin 11.5 g/dL (12.0-16.0); Lymphocytes Absolute Auto 2200 /uL (1100-4500); Lymphocytes Percent Auto 15.8 % (25-40); Mean Corpuscular HGB Conc 34.1 % (30-36); Mean Corpuscular Volume 76.1 fL (80-100); Monocytes Absolute Auto 500 /uL (0-900); Monocytes Percent Auto 3.4 % (3-14); Neutrophils Absolute Auto 11300 /uL (1500-7000); Neutrophils Percent Auto 80.6 % (50-75); Platelet Count 546 X10^3/uL (150-400); Red Blood Cell Count 4.44 X10^6/uL (4.0-5.2)
--- NOTE | 2021-01-24 22:47 | P.TNLD_ITS ---
Visit Information Visit Information Date of evaluation: 01/24/21 Primary OB Provider: Cristina Watkins On-call OB Provider: Becky Singh Reason for Evaluation: Yes non-stress test Comments/Additional reasons for admission: Patient was brought in by a friend after being contacted by the police that she needed help. Upon arrival to the center patient was obviously altered and initially uncooperative. Her boyfriend had broken up with her and she had been binge drinking alcohol for several days. Vital Signs Vital Signs: Temperature 35.6? blood pressure 129/72 heart rate 97 PFSH Medical History Allergic rhinitis Alopecia (~04/02/20) Asthma Chalazion Chronic headache Depressive disorder Essential hypertension (~07/2019) Genital herpes (~2012) GERD (gastroesophageal reflux disease) HSV-1 (herpes simplex virus 1) infection (~2012) Hypertension Iron deficiency (~09/13/20) 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 Grandmother Hypertension Grandfather No problems noted. Grandmother No problems noted. Grandfather No problems noted. Family/Other Thyroiditis Social History marital status: unknown Smoking Status: Never smoker Objective Labs Result Diagrams: 01/24/21 22:35 01/24/21 22:35 Labs: Laboratory Results - last 24 hr 01/24/21 22:35 WBC 14.0 H RBC 4.44 Hgb 11.5 L Hct 33.8 L MCV 76.1 L MCH 26.0 MCHC 34.1 RDW 15.0 H Plt Count 546 H Neut % (Auto) 80.6 H Lymph % (Auto) 15.8 L [place] % (Auto) 3.4 Eos % (Auto) 0.1 L Baso % (Auto) 0.1 Neut # (Auto) 77530 H Lymph # (Auto) 2200 [place] # (Auto) 500 Eos # (Auto) 0 Baso # (Auto) 0 Evaluation Evaluation Baseline heart rate: 130 Variability: Minimal (3-5) monitor accelerations: Present Monitor Decelerations: Absent Laboratory results: Laboratory Tests 01/24/21 22:35 WBC 14.0 H RBC 4.44 Hgb 11.5 L Hct 33.8 L MCV 76.1 L MCH 26.0 MCHC 34.1 RDW 15.0 H Plt Count 546 H Neut % (Auto) 80.6 H Lymph % (Auto) 15.8 L [place] % (Auto) 3.4 Eos % (Auto) 0.1 L Baso % (Auto) 0.1 Neut # (Auto) 19398 H Lymph # (Auto) 2200 [place] # (Auto) 500 Eos # (Auto) 0 Baso # (Auto) 0 Diagnosis, Plan/Disposition Plan/Disposition Plan: 30 year old at 25 weeks and 4 days with alcohol intoxication. He FM with minimal variability however accelerations present and no decelerations, likely the result of alcohol intoxication. Blood alcohol was 246 and potassium 2.6. I was involved in a delivery when patient's labs came back. Dr. Lepe was contacted and recommended patient transfer to the ER for further treatment of alcohol intoxication and hypokalemia.
[2021-01-24 22:58] LABS: Alanine Aminotransferase 18 IU/L (<35); Albumin 3.6 g/dL (3.5-5.0); Alkaline Phosphatase 93 U/L (38-126); Aspartate Aminotransferase 21 IU/L (14-36); Bilirubin Total 0.2 mg/dL (0.2-1.3); Carbon Dioxide 20 mmol/L (22-32); Chloride 108 mmol/L (98-107); Estimated Glomerular Filt Rate > 60.0 mL/min (>60); Globulin 3.7 g/dL (1.7-4.1); Glucose 118 mg/dL (70-100); HEMOLYSIS < 15 (0-50); Sodium 143 mmol/L (137-145); Total Protein 7.3 g/dL (6.3-8.2)
[2021-01-24 23:02] LABS: Ethanol (ETOH) 246 mg/dL
[2021-01-24 23:04] LABS: BUN Creatinine Ratio 5.1 (6-22); Blood Urea Nitrogen < 2 mg/dL (7-17)
[2021-01-24 23:12] LABS: Potassium 2.6 mmol/L (3.4-5.1)
== END 2021-01-25 00:45 | disposition home or self-care (01) ==
PROVIDERS: Admitting Provider Family Medicine; PCP Specialist; Referring Provider Family Medicine; Visit Provider Family Medicine
DX: O99.312 Alcohol use complicating pregnancy, second trimester (principal); F10.129 Alcohol abuse with intoxication, unspecified; O26.892 Other specified pregnancy related conditions, second trimester; E87.6 Hypokalemia; Y90.8 Blood alcohol level of 240 mg/100 ml or more; Z3A.25 25 weeks gestation of pregnancy
CPT/HCPCS: 59050; 80053; 80320; 85025; 94640; 96360; 99283; G0378; G0379; J7613

== ENCOUNTER 2021-01-25 00:21 | Emergency (ER) | payer MEDICAID, OTHER, SELFPAY ==
[2021-01-25 00:29] VITALS: BP 132/74; PULSE 103; RESP 18; TEMP 36.6; O2SAT 100; BMI 33.3
[2021-01-25] MEDS: POTASSIUM CHLORIDE IN WATER 10 MEQ/100 ML PIGGYBACK 100 MEQ IV ×3 (00:35→02:18)
--- NOTE | 2021-01-25 00:37 | ED_ITS ---
HPI - General Adult General Chief complaint: Toxicology Problem Stated complaint: intoxicated/not with it/ Time Seen by Provider: 01/25/21 00:26 Source: patient and RN notes reviewed Mode of arrival: Wheelchair Limitations: no limitations History of Present Illness HPI narrative: Patient is a 30-year-old female who is who initially was reported to be brought to the labor and delivery department for intoxication and high blood pressure and concern for preeclampsia. Patient is greater than 20 weeks . We received a call from Labor and delivery stating that she had been in their department for a period of time. Her blood pressure is unremarkable. She had blood drawn which showed an elevated alcohol level and also low potassium. She had received 2 L of fluids. She had not had any potassium replaced. Per report the OB provider was called and the nursing staff was instructed to send the patient to the emergency department because of the alcohol intoxication. Patient states that she was brought to the hospital by her friends because of elevated blood pressure. Related Data Home Medications Medication Instructions Recorded Confirmed ACETAMINOPHEN 650 mg PO PRN #0 12/28/12 01/09/21 omeprazole 20 mg capsule,delayed 20 mg PO DAILY 08/11/19 01/09/21 release Previous Rx's Medication Instructions Recorded VIT#96/FERROUS FUM/FA 1 tab PO QDAY #100 01/21/13 ( Vitamin) albuterol sulfate 90 mcg/actuation 0 puff INH Q4HP PRN #1 ea 08/23/17 aerosol inhaler (Ventolin HFA) Allergies Allergy/AdvReac Type Severity Reaction Status Date / Time azithromycin Allergy Intermediate Rash Verified 01/25/21 00:29 cefixime [CEFIXIME] Allergy Unknown Verified 01/25/21 00:29 Penicillins [PENICILLINS] Allergy Unknown Hives Verified 01/25/21 00:29 promethazine [PROMETHAZINE] Allergy Unknown Verified 01/25/21 00:29 amoxicillin Allergy Verified 01/25/21 00:29 ibuprofen Allergy Unknown Verified 01/25/21 00:29 from [facility] 12/2018 iodine Allergy Unknown Verified 01/25/21 00:29 from [facility] 12/2018 sumatriptan AdvReac Intermediate Dizzyness Verified 01/25/21 00:29 Review of Systems Cardiovascular Comments: Patient denies chest pain Respiratory Comments: She denies shortness of breath Gastrointestinal Comments: Patient denies abdominal pain. She states she does feel her baby move. She denies any urinary symptoms. Genitourinary Comments: Denies any urinary symptoms Integumentary/Breasts Comments: No rashes Patient History Medical History Allergic rhinitis Alopecia (~04/02/20) Asthma Chalazion Chronic headache Depressive disorder Essential hypertension (~07/2019) Genital herpes (~2012) GERD (gastroesophageal reflux disease) HSV-1 (herpes simplex virus 1) infection (~2012) Hypertension Iron deficiency (~09/13/20) 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 Grandmother Hypertension Grandfather No problems noted. Grandmother No problems noted. Grandfather No problems noted. Family/Other Thyroiditis Social History marital status: unknown Smoking Status: Never smoker Smoking Status: Never smoker alcohol intake frequency: a few times a month Alcohol type: hard liquor Substance Use Type: does not use and marijuana Exam Initial Vital Signs Initial Vital Signs: Vital Signs Temperature 97.9 F 01/25/21 00:29 Pulse Rate 103 H 01/25/21 00:29 Respiratory Rate 18 01/25/21 00:29 Blood Pressure 132/74 01/25/21 00:29 Pulse Oximetry 100 01/25/21 00:29 Const General: comfortable and disheveled HENMT Head: normal to inspection and normocephalic Eyes General: appearance normal, both eyes and all related structures Resp Effort & Inspection: normal respiratory effort Auscultation: clear to auscultation bilaterally Cardio Rate: regular rate Rhythm: regular rhythm GI Palpation: soft and No tender Skin Lesions: no lesions Neuro General: patient alert, patient awake and moves all extremities Extrem General: normal to inspection and capillary refill normal Psych Appearance: grossly normal and disheveled Course Orders Ordered: Discontinued Medications Albuterol (Albuterol 2.5 Mg/3 Ml Neb (Adult)) 2.5 mg INH NOW ONE Stop: 01/25/21 03:51 Last Admin: 01/25/21 03:59 Dose: 2.5 mg Documented by: HUGO POTASSIUM CHLORIDE IN WATER (Potassium Cl 10 Meq/100 Ml Shantelle) 10 meq in 100 mls @ 100 mls/hr IV Q1H SHERLYN Stop: 01/25/21 04:29 Last Admin: 01/25/21 04:01 Dose: Not Given Documented by: Infusion: 01/25/21 03:59 Dose: 0 mls/hr Documented by: Admin: 01/25/21 02:18 Dose: 100 mls/hr Documented by: Infusion: 01/25/21 02:12 Dose: 0 mls/hr Documented by: Admin: 01/25/21 01:21 Dose: 100 mls/hr Documented by: Infusion: 01/25/21 01:21 Dose: 100 mls/hr Documented by: Admin: 01/25/21 00:35 Dose: 100 mls/hr Documented by: NESHA Ondansetron HCl (Ondansetron 4 Mg Odt) 4 mg SL NOW ONE Stop: 01/25/21 03:51 Last Admin: 01/25/21 03:58 Dose: 4 mg Documented by: HUGO Potassium Chloride (Potassium Chloride 20 Meq/15 Ml Udc) 40 meq PO NOW ONE Stop: 01/25/21 02:56 Last Admin: 01/25/21 03:26 Dose: 40 meq Documented by: YADIEL Vital Signs Vital signs: Vital Signs - 8 hr 01/25/21 00:29 01/25/21 02:21 01/25/21 02:29 Temperature 97.9 F Pulse Rate 103 H 98 H 91 H Respiratory Rate 18 20 20 Blood Pressure 132/74 129/70 Pulse Oximetry 100 01/25/21 02:30 01/25/21 04:06 Temperature Pulse Rate 91 H 88 Respiratory Rate 20 16 Blood Pressure 137/67 Pulse Oximetry 98 Medical Decision Making MDM Narrative Medical decision making narrative: Labs from Labor and delivery were reviewed. Patient did have an elevated alcohol level and was hypokalemic. She was not hypertensive upon arrival. States she is feeling her baby move. She denies any vaginal bleeding or loss of fluid. Patient was initially calm and cooperative. Potassium replacement was started IV. She completed 20 mEq of potassium. While she was receiving her 3rd potassium infusion the patient woke up. Stating that she did not want to stay any longer. She removed herself from all of her monitors. She attempted to remove her IV. She stated that she needed to go home because the friend who brought her to the emergency department was in the p arking lot with her kids. She did initially step out of the emergency department in the hallway but however asked to return to her room. She was then calm. Attempted to give her oral potassium however she started to vomit afterwards. She was able to converse normally. Was able to stand. Was able to walk to the bathroom under her own power. Will discharge home with a friend. She was given return precautions and follow-up instructions. She expressed understanding and agreement. Discharge Plan Departure Patient Disposition: Home Clinical Impression: Alcoholic intoxication, Hypokalemia, Instructions: Alcohol Use Disorder Activity Restrictions/Additional Instructions: No driving for the next 24 hours nor in the future if you drink alcohol. It is important that you do know that alcohol consumption during can can cause serious issues with the itself and also your unborn child. I do recommend that you abstain from alcohol for the remainder of your . I also recommend that you continue to take your vitamins. Contact your OB provider for a follow-up. Return to the emergency department for any new or worsening symptoms Prescriptions: No Action ACETAMINOPHEN 650 mg PO PRN Qty: 0 RF: 0 VIT#96/FERROUS FUM/FA ( Vitamin) 1 tab PO QDAY Qty: 100 RF: 3 albuterol sulfate [Ventolin HFA] 90 MCG/PUFF HFA aerosol inhaler 0 puff INH Q4HP PRNQty: 1 RF: 0 omeprazole 20 mg capsule,delayed release(DR/EC) 20 mg PO DAILY RF: 0 Referrals: Cristina Watkins MD [Primary Care Provider] - Stand Alone Forms: Against Medical Advice
[2021-01-25 02:21] VITALS: BP 129/70; PULSE 98; RESP 20
[2021-01-25 02:29] VITALS: PULSE 91; RESP 20
[2021-01-25 02:30] VITALS: BP 137/67; PULSE 91; RESP 20
[2021-01-25] MEDS: POTASSIUM CHLORIDE 20 MEQ/15 ML UDC 40 MEQ PO (03:26)
--- NOTE | 2021-01-25 03:27 | PC.NURSE ---
She was going to remove her IV and leave,she was frustrated she said that she had no way to get home and no friend here.I removed her IV patent and intact and left messages for her friend to call here.She drank a sip of her oral k and spit it out,she got 2 and 1/2 or 250 ml of her k riders.DR Saunders aware.
[2021-01-25] MEDS: ONDANSETRON 4 MG ODT SL (03:58)
[2021-01-25] MEDS: ALBUTEROL 2.5 MG/3 ML NEB (ADULT) INH (03:59)
[2021-01-25 04:06] VITALS: PULSE 88; RESP 16; O2SAT 98
[2021-01-25 05:00] VITALS: BP 136/74; PULSE 84; RESP 18; O2SAT 98
== END 2021-01-25 05:01 | disposition home or self-care (01) ==
PROVIDERS: Emergency Provider Emergency Medicine; PCP Specialist
DX: O26.892 Other specified pregnancy related conditions, second trimester (principal); F10.129 Alcohol abuse with intoxication, unspecified; E87.6 Hypokalemia; Z3A.20 20 weeks gestation of pregnancy
CPT/HCPCS: 94640; 99283; 99284; J7613

== ENCOUNTER 2021-02-16 13:39 | Observation (INO) | payer MEDICAID, OTHER, SELFPAY ==
--- NOTE | 2021-02-16 13:57 | ED.GENADULT ---
HPI - General Adult General Stated complaint: ABD PAIN/27 WEEKS /POST FALL Time Seen by Provider: 02/16/21 13:55 History of Present Illness HPI narrative: 30-year-old status post 3 sections at 27 weeks gestational age stumbled fell forward landing on a rock almost directly mid uterus on top of the rock. She describes a large gush of fluid enough that she needed to change pants as well as underwear prior to coming to the emergency department. She does not report continued vaginal leaking. She is having no vaginal bleeding upon arrival in the emergency room she had a large void with a full bladder. She is complaining of some paraspinous muscle spasm and some low pelvic pain. She is feeling the baby move and is having no contractions. She notes some nasal stuffiness that she believes is allergies it has been a problem for the last week. She states she has had a recent COVID test that is negative but is not currently vaccinated. She can not find her albuterol inhaler. She states that this is her 2nd fall in 2 weeks, 2 weeks ago she stumbled over 3 step porch landing on her abdomen as well. Related Data Home Medications Medication Instructions Recorded Confirmed ACETAMINOPHEN 650 mg PO PRN #0 12/28/12 01/09/21 omeprazole 20 mg capsule,delayed 20 mg PO DAILY 08/11/19 01/09/21 release Previous Rx's Medication Instructions Recorded VIT#96/FERROUS FUM/FA 1 tab PO QDAY #100 01/21/13 ( Vitamin) albuterol sulfate 90 mcg/actuation 0 puff INH Q4HP PRN #1 ea 08/23/17 aerosol inhaler (Ventolin HFA) Allergies Allergy/AdvReac Type Severity Reaction Status Date / Time azithromycin Allergy Intermediate Rash Verified 02/16/21 14:00 cefixime [CEFIXIME] Allergy Unknown Verified 02/16/21 14:00 Penicillins [PENICILLINS] Allergy Unknown Hives Verified 02/16/21 14:00 promethazine [PROMETHAZINE] Allergy Unknown Verified 02/16/21 14:00 amoxicillin Allergy Verified 02/16/21 14:00 ibuprofen Allergy Unknown Verified 02/16/21 14:00 from [facility] 12/2018 iodine Allergy Unknown Verified 02/16/21 14:00 from [facility] 12/2018 sumatriptan AdvReac Intermediate Dizzyness Verified 02/16/21 14:00 Review of Systems Review of Systems Narrative: Remainder of complete review of systems is otherwise unremarkable except for that included in the HPI. Patient History Medical History Allergic rhinitis Alopecia (~04/02/20) Asthma Chalazion Chronic headache Depressive disorder Essential hypertension (~07/2019) Genital herpes (~2012) GERD (gastroesophageal reflux disease) HSV-1 (herpes simplex virus 1) infection (~2012) Hypertension Iron deficiency (~09/13/20) 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 Grandmother Hypertension Grandfather No problems noted. Grandmother No problems noted. Grandfather No problems noted. Family/Other Thyroiditis Social History marital status: unknown Smoking Status: Never smoker Smoking Status: Never smoker alcohol intake frequency: a few times a month Alcohol type: hard liquor Substance Use Type: does not use and marijuana Exam Narrative Exam Narrative: General: Healthy appearing, in no acute distress. Able to give a complete and coherent history. Well-nourished well-developed HEENT: Moist mucous membranes, normal sclera with reactive pupils, Respiratory: Lungs with scattered wheezing in all lung randolph, no rales no rhonchi. Full and symmetrical air movement Cardiac: Tachycardia but otherwise Regular rate and rhythm no murmurs no bruits Abdomen: Gravid, Soft, but no obvious trauma or bruising. No contractions. Low pelvic tenderness bilaterally, No flank pain Skin: Warm and dry, no rashes Neurologic: Grossly neurologically intact with no obvious asymmetries or abnormalities Spine: Paraspinous muscle spasm from approximately T8-L1 bilaterally. Extremities: No trauma, well perfused Psych: Cooperative, somewhat limited insight, appropriate affect Bedside ultrasound: Fundal/posterior placenta with no obvious subchorionic hemorrhage Good movement with heart rate at 120 Concerning fluid levels with large 5 cm pocket in the right upper quadrant only total ALFREDITO is 7 cm No contractions appreciated during exam As she stands up to moved to wheelchair she has a another large gush of what appears to be obvious amniotic fluid. Medical Decision Making MDM Narrative Medical decision making narrative: 30-year-old 27 weeks stumbled with a fall landing directly on her abdomen large gush of fluid 2nd gush of fluid noted in the emergency department. Low ALFREDITO on bedside ultrasound. Viable fetus with heart rate at 120 cc. Trauma to the mother from the injury include some minor paraspinous muscle spasm. Incidentally noted minor wheezing and nasal stuffiness. No extremity injuries and she did not hit her head. Not complaining of any neck pain. She states that she has recently lost her albuterol inhaler. Care is reviewed with Dr. Smith, on-call OBGYN. Patient is transferred to labor and delivery for heart rate monitoring and likely transfer to care center with traumatic rupture of membranes at 27 weeks. Not currently tom and no current vaginal bleeding. Discharge Plan Departure Patient Disposition: Admitted as Observation Clinical Impression: Rupture, membranes, premature, Fall Admit Date/Time: 02/16/21 14:39
[2021-02-16 14:00] VITALS: BP 104/77; PULSE 119; RESP 18; TEMP 36.6; O2SAT 98; BMI 34.5
[2021-02-16 14:30] VITALS: BP 154/86; PULSE 122; RESP 22; O2SAT 96
--- NOTE | 2021-02-16 15:03 | DI.US.S_ITS ---
PROCEDURE: US OB LIMITED INDICATIONS: EFW, ALFREDITO, CERVICAL LENGTH OUTSIDE/PRIOR DATING DATA: Last menstrual period (LMP): 07/30/2020 . LMP-based estimated date of delivery (EDER): 05/06/2021 . First dating scan (date and location): 11/13/2020 . Estimated date of delivery (EDER) from first dating scan: 05/16/2021 . TECHNIQUE: Real-time scanning was performed of the fetus, with image documentation and biometric measurements. Endovaginal scanning: Performed. COMPARISON: [facility], OB LIMITED, 06/03/2019, 15:30. FINDINGS: General: A single living intrauterine gestation is present. Presentation: Breech. Placenta: Placental position is posterior , without previa. Amniotic fluid index: 16.8 cm, normal range is 5-24 cm. heart rate: 143 beats per minute. Maternal cervical canal: 4.4 cm long. Normal lower limit is 2.5 cm. biometrics: Biparietal diameter: 7.0 cm, corresponding estimated gestational age of 28 weeks 1 day Head circumference: 26.6 cm, corresponding with an estimated gestational age of 29 weeks 0 days Abdominal circumference: 26.86 cm, corresponding with an estimated gestational age of 31 weeks 0 days. Femur length: Femur length of 5.13 cm, corresponding with an estimated gestational age of 27 weeks 3 days. Composite gestational age from present scan: 28 weeks 6 days Estimated weight and percentile: 1395 g, at the 98th percentile IMPRESSION: Single living intra with estimated weight at the 98th percentile. This is considered large for gestational age. Dictated by: Evelio Fisher M.D. on 02/16/2021 at 15:09 Approved by: Evelio Fisher M.D. on 02/16/2021 at 15:16
[2021-02-16 15:21] LABS: COVID19 -Nasal RAPID Negative (Negative)
[2021-02-16 18:18] LABS: GTT (PREG) 1 Hour PP 50gm Dose 129 mg/dL (76-139)
== END 2021-02-16 18:47 | disposition home or self-care (01) ==
LOC: ED 14:39 → LABOR 02-17 13:32
PROVIDERS: Admitting Provider Obstetrics & Gynecology; Emergency Provider Emergency Medicine; PCP Specialist; Referring Provider Emergency Medicine; Visit Provider Obstetrics & Gynecology
DX: O42.912 Preterm premature rupture of membranes, unspecified as to length of time between rupture and onset of labor, second trimester (principal); Z3A.27 27 weeks gestation of pregnancy; R10.2 Pelvic and perineal pain; W01.198A Fall on same level from slipping, tripping and stumbling with subsequent striking against other object, initial encounter; O99.891 Other specified diseases and conditions complicating pregnancy; J45.909 Unspecified asthma, uncomplicated; F43.10 Post-traumatic stress disorder, unspecified; O99.012 Anemia complicating pregnancy, second trimester; D50.9 Iron deficiency anemia, unspecified; O10.912 Unspecified pre-existing hypertension complicating pregnancy, second trimester; O98.312 Other infections with a predominantly sexual mode of transmission complicating pregnancy, second trimester; A60.09 Herpesviral infection of other urogenital tract; Z20.822 Contact with and (suspected) exposure to COVID-19
CPT/HCPCS: 36415; 59025; 59050; 76815; 81003; 81025; 82950; 84112; 87635; 99283; C9803; G0378

== ENCOUNTER 2021-03-06 14:59 | Emergency (ER) | payer MEDICAID, OTHER, SELFPAY ==
[2021-03-06] VITALS (21 sets, daily range): BP systolic 109–157; BP diastolic 57–80; PULSE 98–126; RESP 17–29; TEMP 36.8; O2SAT 96–100; BMI 38.9
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
[2021-03-06 15:27] LABS: Add Manual Diff / Slide Review NO; Basophils Absolute Auto 100 /uL (0-100); Basophils Percent Auto 0.5 % (0-2); Eosinophils Absolute Auto 100 /uL (0-450); Eosinophils Percent Auto 0.8 % (2-4); Hematocrit 33.1 % (36-46); Hemoglobin 10.6 g/dL (12.0-16.0); Lymphocytes Absolute Auto 2700 /uL (1100-4500); Lymphocytes Percent Auto 20.2 % (25-40); Mean Corpuscular Hemoglobin 23.4 PG (26-34); Monocytes Absolute Auto 500 /uL (0-900); Monocytes Percent Auto 3.9 % (3-14); Neutrophils Absolute Auto 10000 /uL (1500-7000); Neutrophils Percent Auto 74.6 % (50-75); Platelet Count 602 X10^3/uL (150-400); Red Blood Cell Count 4.54 X10^6/uL (4.0-5.2); Red Cell Distribution Width 16.3 % (11.6-14.8); White Blood Cell Count 13.3 X10^3/uL (4.5-11.0)
[2021-03-06 15:38] LABS: Alanine Aminotransferase 18 IU/L (<35); Albumin 3.5 g/dL (3.5-5.0); Albumin Globulin Ratio 0.9 (1.0-2.8); Alkaline Phosphatase 114 U/L (38-126); Aspartate Aminotransferase 31 IU/L (14-36); Bilirubin Total 0.2 mg/dL (0.2-1.3); Carbon Dioxide 20 mmol/L (22-32); Chloride 110 mmol/L (98-107); Estimated Glomerular Filt Rate > 60.0 mL/min (>60); Ethanol (ETOH) 191 mg/dL; Globulin 3.7 g/dL (1.7-4.1); Glucose 113 mg/dL (70-100); HEMOLYSIS < 15 (0-50); Potassium 3.2 mmol/L (3.4-5.1); Sodium 139 mmol/L (137-145); Total Protein 7.2 g/dL (6.3-8.2)
[2021-03-06 15:47] LABS: BUN Creatinine Ratio 4.9 (6-22); Blood Urea Nitrogen < 2 mg/dL (7-17)
[2021-03-06 15:48] LABS: COVID19 -Nasal RAPID Negative (Negative)
[2021-03-06] MEDS: ACETAMINOPHEN 325 MG TABLET 650 MG PO (16:09)
[2021-03-06] MEDS: LIDO 1%/SOD BICARB 8.4% (10ML) 10 ML SYRINGE INJ (16:09)
[2021-03-06 16:19] LABS: HCG Quantitative /Beta subunit 46381 mIU/mL
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
== END 2021-03-06 19:20 | disposition home or self-care (01) ==
PROVIDERS: Emergency Provider Emergency Medicine; PCP Specialist
DX: M54.6 Pain in thoracic spine (principal); S63.260A Dislocation of metacarpophalangeal joint of right index finger, initial encounter; F10.129 Alcohol abuse with intoxication, unspecified; Y90.6 Blood alcohol level of 120-199 mg/100 ml; O99.313 Alcohol use complicating pregnancy, third trimester; Z3A.31 31 weeks gestation of pregnancy; V43.52XA Car driver injured in collision with other type car in traffic accident, initial encounter; Z20.822 Contact with and (suspected) exposure to COVID-19
CPT/HCPCS: 26700; 29130; 36415; 64450; 70450; 71045; 72125; 73080; 73090; 73130; 80053; 80320; 84702; 85025; 87635; 99285; C9803

== ENCOUNTER 2021-03-23 11:16 | Outpatient (CLI) | payer MEDICAID, OTHER, SELFPAY ==
--- NOTE | 2021-03-23 12:18 | PM.OBTRLD ---
Visit Information Visit Information Date of evaluation: 03/23/21 Primary OB Provider: Cristina Watkins On-call OB Provider: Becky Singh Reason for Evaluation: Yes non-stress test Comments/Additional reasons for admission: Patient is a 30-year-old 33 weeks and 5 days. She comes in today due to some brownish discharge this morning upon waking which resolved as well as contractions. She states the contractions were painful when cleaning her house this morning but have dissipated now. She feels much better than she did. Denies leaking or bright red bleeding and reports good movement. She hydrates well at home and denies pain with urination or any urinary symptoms. She has not had intercourse recently. Vital Signs Vital Signs: Blood pressure 117/74 heart rate 100 PFSH Medical History Allergic rhinitis Alopecia (~04/02/20) Asthma Chalazion Chronic headache Depressive disorder Essential hypertension (~07/2019) Genital herpes (~2012) GERD (gastroesophageal reflux disease) HSV-1 (herpes simplex virus 1) infection (~2012) Hypertension Iron deficiency (~09/13/20) 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 Grandmother Hypertension Grandfather No problems noted. Grandmother No problems noted. Grandfather No problems noted. Family/Other Thyroiditis Social History marital status: unknown Smoking Status: Never smoker Evaluation Evaluation Baseline heart rate: 130 Variability: Moderate (11-25) monitor accelerations: Present Monitor Decelerations: Absent Uterine Contraction Intensity: Mild Category of Tracing: Reactive Diagnosis, Plan/Disposition Final Diagnosis (1) 33 weeks gestation of : Status: Acute (2) contractions: Status: Acute Plan/Disposition Plan: 30-year-old at 33 weeks and 5 days gestation with concern for contractions. She had some mild contractions noted on the monitor initially which dissipated without intervention. NST reactive. Patient reported feeling much better in the center compared to the hours prior to arrival. UA negative. She will follow-up in clinic as scheduled this week.
[2021-03-23 12:44] LABS: Appearance Urine UA CLEAR; Bilirubin Urine UA NEGATIVE (NEGATIVE); Color Urine UA YELLOW; Glucose Urine UA NEGATIVE (Negative); Ketones Urine UA NEGATIVE (NEGATIVE); Leukocyte Esterase Urine UA NEGATIVE (NEGATIVE); Nitrite Urine UA NEGATIVE (Negative); Occult Blood Urine UA NEGATIVE (Negative); Protein Urine UA NEGATIVE (Negative); Specific Gravity Urine UA <=1.005 (1.000-1.035); Urobilinogen Urine UA 0.2 E.U./dL (0.2)
[2021-03-23 12:47] LABS: pH Urine UA 6.5 (4.5-8.0)
[2021-03-23 12:51] LABS: Bacteria Urine None Seen; Culture Indicated Urine Cult Not Indicated; RBC Urine None Seen (0-5/HPF); Squamous Epithelial Cell Urine 1-5 /HPF (0-5/HPF); WBC Urine 0-1/HPF (0-5/HPF)
== END 2021-03-23 13:05 | disposition home or self-care (01) ==
LOC: LABOR 11:29 → OB 04-02 03:07
PROVIDERS: Family Medicine; PCP Specialist; Referring Provider Specialist; Visit Provider Specialist
DX: O47.03 False labor before 37 completed weeks of gestation, third trimester (principal); O26.893 Other specified pregnancy related conditions, third trimester; N89.8 Other specified noninflammatory disorders of vagina; Z3A.33 33 weeks gestation of pregnancy
CPT/HCPCS: 59025; 81001; G0378; G0379

== ENCOUNTER 2021-04-11 22:47 | Inpatient (IN) | payer MEDICAID, OTHER, SELFPAY ==
[2021-04-12] VITALS (8 sets, daily range): BP systolic 104–129; BP diastolic 66–85; PULSE 83–94; RESP 16; TEMP 36.2–36.6; O2SAT 100
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
[2021-04-12 00:36] LABS: Basophils Absolute Auto 100 /uL (0-100); Basophils Percent Auto 0.6 % (0-2); Eosinophils Absolute Auto 100 /uL (0-450); Eosinophils Percent Auto 0.4 % (2-4); Hematocrit 30.8 % (36-46); Hemoglobin 9.8 g/dL (12.0-16.0); Lymphocytes Absolute Auto 2400 /uL (1100-4500); Lymphocytes Percent Auto 16.1 % (25-40); Mean Corpuscular HGB Conc 31.9 % (30-36); Mean Corpuscular Volume 69.1 fL (80-100); Monocytes Absolute Auto 600 /uL (0-900); Monocytes Percent Auto 3.7 % (3-14); Neutrophils Absolute Auto 11900 /uL (1500-7000); Neutrophils Percent Auto 79.2 % (50-75); Platelet Count 600 X10^3/uL (150-400); Red Blood Cell Count 4.46 X10^6/uL (4.0-5.2); White Blood Cell Count 15.1 X10^3/uL (4.5-11.0)
[2021-04-12 00:37] LABS: Add Manual Diff / Slide Review SLIDE REVIEW
[2021-04-12 00:54] LABS: Ethanol (ETOH) < 10 mg/dL
[2021-04-12 01:01] LABS: COVID19 - ADMIT (NP swab/PCR) Negative (Negative)
[2021-04-12] MEDS: CITRIC ACID/SODIUM CITRATE 15 ML SOLUTION 30 ML PO (01:05)
[2021-04-12] MEDS: CLINDAMYCIN 900 MG/50 ML PIGGYBACK 50 MG IV (01:21)
[2021-04-12 01:34] LABS: Platelet Estimate Increased on smear
[2021-04-12 01:35] LABS: Anisocytosis 2+; Microcytosis 1+
--- NOTE | 2021-04-12 01:38 | SUR.OPER ---
Viable male delivered by section at 01:34. Cord blood vials x2 and placenta sent with L&D RN.
--- NOTE | 2021-04-12 02:26 | PM.OP.1 ---
Operative Date/Time/Diagnoses Date of procedure: 04/12/21 Time of procedure: 02:27 Pre-op diagnosis: prior section with spontaneous rupture membranes in active labor Post-op diagnosis: same Procedure & Clinicians Procedure: repeat low-transverse section Same procedure as scheduled: Yes Indications: spontaneous rupture membranes in active labor Surgeon: Cristina Watkins Loss Prevention Specialist: Inder Kelly Click Yes if Unassisted: No Anesthesia Type: Spinal Operative Notes Findings: viable male weighing 6 lb 15 oz with Apgars of 3, 7, and 8 extensive adhesions around the right side of the uterus and to the anterior abdominal right ovary not visualized but palpates normal normal left tube and ovary Closure Type: primary Specimen(s): none sent Applied: catheter ( Medeiros) Estimated Blood Loss (mL): 200 Blood products transfused: none Procedure in detail: The patient was brought to the operating room where she underwent a spinal for anesthesia. She was placed in a supine position with a left lateral tilt. A Medeiros catheter was placed. Pulsatile stockings were placed and functional throughout the case. 900 mg of clindamycin were given IV prior to the incision. Warming was in place. The patient was prepped and draped in usual sterile fashion. A low transverse incision was made with a scalpel and the incision was carried down to the fascial layer which was incised transversely with scissors. The psychological assistant did his side of the incision. The midline attachments are superiorly and inferiorly. Some bleeding was controlled Bovie. The rectus muscles were in the midline and the peritoneal incision was made with no damage to internal structures. The peritoneum was incised and superiorly and inferiorly. The incision was stretched with the surgeon and psychological assistant placing traction. Bladder blade was placed and a bladder flap was developed and the bladder held away from the lower uterine segment. An incision was made in the uterus with the scalpel and the incision was extended with stretching. The head was elevated out of the abdomen with vacuum and fundal pressure by the psychological assistant the baby was delivered. The was bulb suctioned for clear fluid and handed off to the warmer. Cord blood was collected. The placenta delivered spontaneously with traction. The uterus was cleaned with clean laps. The uterine incision was closed in 2 layers of 0 chromic suture the first a running locking layer the second an imbricating layer. The psychological assistant was helping to expose the incision. The bladder peritoneum was repaired with 2-0 Vicryl suture. The gutters were cleaned of any remaining fluids and ovaries and tubes were observed to be normal. Adequate hemostasis was noted. The perineum was closed with 2-0 Vicryl suture. The fascia layer was closed with 0 Vicryl suture with 2 stitches. The psychological assistant repairing half the incision with helping to retract and expose the incision for the other half. The incision was irrigated and adequate hemostasis noted. The incision was closed with interrupted 3-0 Vicryl sutures and then a subcuticular stitch of 4-0 Vicryl suture. Steri-Strips were placed. The uterus was massaged to remove any clots. The patient went to recovery room in good condition. Counts of instruments and sponges were correct. Dr. Kelly was present throughout the case to assist with retraction, fundal pressure to deliver the infant, and suturing half the fascia. Complications: none Post-operative Condition: stable Disposition: other ( center) Plan for aftercare: routine post section
[2021-04-12] MEDS: OXYCODONE IR 5 MG TABLET PO ×2 (06:36→20:45)
[2021-04-12] MEDS: ACETAMINOPHEN 325 MG TABLET 650 MG PO ×2 (06:36→20:45)
[2021-04-12] MEDS: KETOROLAC 30 MG/ML VIAL IV ×3 (09:10→21:30)
[2021-04-12] MEDS: DOCUSATE 100 MG CAPSULE 200 MG PO (09:11)
[2021-04-12] MEDS: LACTATED RINGERS 1,000 ML 100 ML IV (10:50)
[2021-04-12 14:35] LABS: Appearance Urine UA CLEAR; Bilirubin Urine UA NEGATIVE (NEGATIVE); Color Urine UA YELLOW; Glucose Urine UA NEGATIVE (Negative); Ketones Urine UA NEGATIVE (NEGATIVE); Leukocyte Esterase Urine UA NEGATIVE (NEGATIVE); Nitrite Urine UA NEGATIVE (Negative); Occult Blood Urine UA NEGATIVE (Negative); Protein Urine UA 2+ (Negative); Specific Gravity Urine UA <=1.005 (1.000-1.035); Urobilinogen Urine UA 0.2 E.U./dL (0.2); pH Urine UA 6.5 (4.5-8.0)
[2021-04-12] MEDS: SERTRALINE 50 MG TABLET PO (17:52)
[2021-04-12 18:34] LABS: UR Morphine/Opiate cutoff 300 Negative (Negative); Ur Creatinine Normal (Normal); Ur Specific Gravity Normal (Normal); Urine Amphetamines Negative (Negative); Urine Cocaine Negative (Negative); Urine Methamphetamines Negative (Negative); Urine Tetrahydrocannabinol Positive (Negative); Urine pH Normal (Normal)
[2021-04-12 18:35] LABS: Urine Barbiturates Negative (Negative); Urine Benzodiazepines Negative (Negative); Urine MDMA Negative (Negative); Urine Methadone Negative (Negative); Urine Oxycodone Positive (Negative); Urine Phencyclidine Negative (Negative); Urine Tricyclic Antidepressant Negative (Negative)
[2021-04-12] MEDS: CALCIUM CARBONATE 500 MG TAB PO (19:28)
[2021-04-13] MEDS: OXYCODONE IR 5 MG TABLET PO ×2 (03:57→09:10)
[2021-04-13] MEDS: ACETAMINOPHEN 325 MG TABLET 650 MG PO (03:57)
[2021-04-13] MEDS: IBUPROFEN 600 MG TABLET PO (03:57)
[2021-04-13 07:40] LABS: Add Manual Diff / Slide Review NO; Basophils Absolute Auto 100 /uL (0-100); Basophils Percent Auto 0.8 % (0-2); Eosinophils Absolute Auto 100 /uL (0-450); Eosinophils Percent Auto 0.7 % (2-4); Hematocrit 29.1 % (36-46); Hemoglobin 9.4 g/dL (12.0-16.0); Lymphocytes Absolute Auto 2400 /uL (1100-4500); Lymphocytes Percent Auto 19.6 % (25-40); Mean Corpuscular HGB Conc 32.2 % (30-36); Mean Corpuscular Hemoglobin 21.9 PG (26-34); Mean Corpuscular Volume 67.8 fL (80-100); Monocytes Absolute Auto 700 /uL (0-900); Neutrophils Absolute Auto 8800 /uL (1500-7000); Neutrophils Percent Auto 72.9 % (50-75); Platelet Count 560 X10^3/uL (150-400); Red Blood Cell Count 4.29 X10^6/uL (4.0-5.2); Red Cell Distribution Width 17.2 % (11.6-14.8); White Blood Cell Count 12.1 X10^3/uL (4.5-11.0)
--- NOTE | 2021-04-13 08:20 | PM.OBDS.1 ---
Discharge Providers Provider Date of admission: 04/11/21 22:47 Discharge Date: 04/13/21 Primary care physician: Cristina Watkins MD Consults: 04/12/21 02:49 Consult to Deputy Director Of Finance Routine Comment: Consult to INDUSTRIAL ORDER CLERK - Corporate Banking Officer Routine Comment: multiple episodes alcohol intoxication in pregnan INDUSTRIAL ORDER CLERK Consult: APS/CPS Crisis Referral Discharge provider: Man Lepe MD Summary Hospital Course Date Patient Seen: 04/13/21 Time Patient Seen: 08:21 Diagnoses: S/P repeat section in labor Chronic hypertension Hospital Course: Early on the morning of 04/12/2021, the patient underwent a repeat section. The surgery was uncomplicated and details of the procedure well summarized on the operative note of Dr. Cristina Watkins. Following surgery the patient has done well with prompt return of bowel and bladder function. She has been extremely anxious however due to the status or her baby who was transferred to [facility]. She has had occasional blood pressure elevation is in to the near severe range but these have spontaneously defervesced and she is having no signs or symptoms of severe hypertension. As a precaution, labetalol 200 mg BID has been initiated prior to discharge and her BP's will be reassessed at the time of her post- visits. She will be discharged at this time to home in afebrile condition with mildly elevated blood pressures consistent with those observed during . Medications at discharge will include labetalol 200 mg PO BID, oxycodone 5 mg tabs 20., Colace 200 mg p.o. q.d. times 30 days, and she is to resume all of her antepartum medications. Prior to discharge the patient was counseled regarding precautionary symptoms, limitations of activity, medications, and plans for follow-up which will be in [address] Watkins. Peripartum Data Delivery Method: Section Episiotomy description: None complications: none 1: Disposition of : other (Transferred to [facility]) Discharge Diagnosis (1) Previous section complicating , with delivery: Status: Acute (2) Hypertension: Status: Acute Status at Discharge Cognitive/behavioral status at discharge: oriented Functional status at discharge: independent ambulation Overall status at discharge: patient is progressing back to baseline Time Spent with Patient Time attestation: Total time spent providing and/or coordinating discharge services: Objective Labs Result Diagrams: 04/13/21 07:23 Labs: Laboratory Results - last 24 hr 04/12/21 04/12/21 04/13/21 14:20 14:20 07:23 WBC 12.1 H RBC 4.29 Hgb 9.4 L Hct 29.1 L MCV 67.8 L MCH 21.9 L MCHC 32.2 RDW 17.2 H Plt Count 560 H Neut % (Auto) 72.9 Lymph % (Auto) 19.6 L Beadle % (Auto) 6.0 Eos % (Auto) 0.7 L Baso % (Auto) 0.8 Neut # (Auto) 8800 H Lymph # (Auto) 2400 Beadle # (Auto) 700 Eos # (Auto) 100 Baso # (Auto) 100 Urine Color Yellow Urine Appearance Clear Urine pH 6.5 Ur Specific [place] <=1.005 Urine Protein 2+ H Urine Glucose (UA) Negative Urine Ketones Negative Urine Occult Blood Negative Urine Nitrate Negative Urine Bilirubin Negative Urine Urobilinogen 0.2 Ur Leukocyte Esterase Negative U Opiates 300ng/mL cut Negative Ur Oxycodone Screen Positive H Urine Methadone Screen Negative Ur Barbiturates Screen Negative U Tricyclic Antidepress Negative Ur Phencyclidine Scrn Negative Ur Amphetamines Screen Negative U Methamphetamines Scrn Negative Ur MDMA Scrn (Ecstasy) Negative U Benzodiazepines Scrn Negative Urine Cocaine Screen Negative U Marijuana (THC) Screen Positive H Exam Vital Signs (past 8 hours): Oxygen Delivery Method Room Air Const General: cooperative and anxious Nutritional Appearance: overweight Orientation: alert and oriented x3 HENMT Head: normocephalic and atraumatic Ears: hearing grossly normal bilaterally Eyes General: appearance normal, both eyes and all related structures Neck Neck: normal visual inspection Resp Effort & Inspection: normal respiratory effort and able to speak in complete sentences Auscultation: clear to auscultation bilaterally Cardio Rate: regular rate Rhythm: regular rhythm Heart Sounds: S1 normal, S2 normal and no murmurs GI Inspection: normal to inspection and incision (Clean and dry) Palpation: soft, no hepatosplenomegaly and mass (Firm, minimally tender fundus, U-3.) Auscultation: normal bowel sounds Extrem General: no calf tenderness Psych Appearance: grossly normal Mental Status: mental status grossly normal Speech and Movement: speech and movement normal Mood: anxious mood Affect: normal affect Attitude: cooperative Thought Process: normal Thought Content: normal Judgment: judgment good Discharge Plan Discharge Plan Patient Disposition: Home Provider Discharge Comment: Please review the written instructions provided when you were discharged. Your follow-up appointment will be with Dr. Watkins in approximately 1 week for an incision check. If however you have any questions or concerns between now and then, please do not hesitate to contact the office. Discharge orders & Medications Prescriptions: New docusate sodium 100 mg Capsule 200 mg PO DAILY Qty: 60 RF: 2 sertraline [Zoloft] 50 mg Tablet 50 mg PO DAILY@1800 Qty: 30 RF: 12 oxycodone 5 mg tablet 5 mg PO Q4H PRN (Reason: pain) Qty: 20 RF: 0 labetalol 200 mg tablet 200 mg PO BID Qty: 60 RF: 12 Continued ACETAMINOPHEN 650 mg PO PRN Qty: 0 RF: 0 VIT#96/FERROUS FUM/FA ( Vitamin) 1 tab PO QDAY Qty: 100 RF: 3 albuterol sulfate [Ventolin HFA] 90 MCG/PUFF HFA aerosol inhaler 0 puff INH Q4HP PRNQty: 1 RF: 0 omeprazole 20 mg capsule,delayed release(DR/EC) 20 mg PO DAILY RF: 0 sertraline 50 mg tablet 50 mg PO DAILY Qty: 30 RF: 0 Follow up/Referrals: Cristina Watkins MD [Primary Care Provider] - (please call [phone] on Thursday morning to schedule your 1 week incision check w/ Dr. Watkins) Discharge Health Status Multidrug resistant organism: No MDRO Diet/Activity/Treatments Diet: Diet as Tolerated Activity: As tolerated Skin/Wound/Dressing Care Report to your healthcare provider any signs of infection, such as:: chills, fever, increased pain, unusual drainage and unusual redness Dressing: Keep clean and dry Visit Report/Discharge Packet Instructions: DI for , DI for Prescription Opioid Use Stand Alone Forms: Discharge: Care Discharge Data Primary Care Provider: Cristina Watkins
[2021-04-13 08:21] LABS: Hypochromasia 2+; Microcytosis 2+
[2021-04-13 08:26] VITALS: BP 163/99; PULSE 83; RESP 16; TEMP 36.6
[2021-04-13] MEDS: DOCUSATE 100 MG CAPSULE 200 MG PO (09:08)
[2021-04-13 09:09] VITALS: BP 155/90; PULSE 102
[2021-04-13] MEDS: LABETALOL 100 MG TABLET 200 MG PO (09:09)
[2021-04-13 09:10] VITALS: TEMP 36.4
[2021-04-13] MEDS: MEASLES,MUMPS,RUBELLA VACC/PF 0.5 ML VIAL SUBCUT (10:23)
== END 2021-04-13 10:40 | disposition home or self-care (01) | DRG 787 ==
PROVIDERS: Admitting Provider Family Medicine; PCP Specialist; Referring Provider Family Medicine; Visit Provider Family Medicine
PROC: 10D00Z1 Extraction of Products of Conception, Low, Open Approach (ICD-10-PCS; CPT 59514; principal; 2021-04-12 00:30)
DX: O42.013 Preterm premature rupture of membranes, onset of labor within 24 hours of rupture, third trimester (principal); O98.32 Other infections with a predominantly sexual mode of transmission complicating childbirth; O98.52 Other viral diseases complicating childbirth; A60.00 Herpesviral infection of urogenital system, unspecified; B00.9 Herpesviral infection, unspecified; O34.211 Maternal care for low transverse scar from previous cesarean delivery; Z3A.36 36 weeks gestation of pregnancy; Z37.0 Single live birth; O99.891 Other specified diseases and conditions complicating pregnancy; F43.10 Post-traumatic stress disorder, unspecified; F32.9 Major depressive disorder, single episode, unspecified; O16.4 Unspecified maternal hypertension, complicating childbirth; O99.314 Alcohol use complicating childbirth; F10.229 Alcohol dependence with intoxication, unspecified; Y90.0 Blood alcohol level of less than 20 mg/100 ml; Z20.822 Contact with and (suspected) exposure to COVID-19
CPT/HCPCS: 36415; 59050; 59514; 80305; 80320; 81003; 84112; 85025; 86850; 86900; 86901; 87635; C9803; G0379; J1885; J2274

== ENCOUNTER → 2021-11-11 09:59 | Outpatient (CLI) | payer OTHER, MEDICAID, SELFPAY ==
--- NOTE | 2021-11-11 | DI.RAD.S_ITS ---
PROCEDURE: XR TIBIA FIBULA LT 2V INDICATIONS: lower left leg infection, rule out osteomyelitis TECHNIQUE: 2 views of the tibia and fibula were acquired. COMPARISON: None. FINDINGS: Bones: No fractures or dislocations. No suspicious bony lesions. Soft tissues: No suspicious soft tissue calcifications or masses. IMPRESSION: Unremarkable tibia fibula radiographs Approved by: Yaya Ling M.D. on 11/11/2021 at 11:12
== END ==
PROVIDERS: PCP Specialist; Referring Provider Registered Nurse General Practice; Visit Provider Registered Nurse General Practice
DX: L08.9 Local infection of the skin and subcutaneous tissue, unspecified (principal)
CPT/HCPCS: 73590

== ENCOUNTER → 2021-11-15 10:12 | Outpatient (CLI) | payer OTHER, MEDICAID, SELFPAY ==
[2021-11-15 11:52] LABS: HCG Quantitative /Beta subunit 80.3 mIU/mL
== END ==
PROVIDERS: Family Provider Specialist; PCP Specialist; Referring Provider Specialist; Visit Provider Specialist
DX: Z32.01 Encounter for pregnancy test, result positive (principal)
CPT/HCPCS: 36415; 84702

== ENCOUNTER → 2021-11-22 12:11 | Outpatient (CLI) | payer OTHER, MEDICAID, SELFPAY | PROVIDERS: Family Provider Specialist; PCP Specialist; Referring Provider Specialist; Visit Provider Nurse Practitioner Family | DX: E11.40 Type 2 diabetes mellitus with diabetic neuropathy, unspecified (principal); E11.610 Type 2 diabetes mellitus with diabetic neuropathic arthropathy; M14.671 Charcot's joint, right ankle and foot; M14.672 Charcot's joint, left ankle and foot; I10 Essential (primary) hypertension; E66.9 Obesity, unspecified; Z89.421 Acquired absence of other right toe(s); Z68.41 Body mass index [BMI] 40.0-44.9, adult; Z86.31 Personal history of diabetic foot ulcer | CPT/HCPCS: 11042; 99203; 99213 ==

== ENCOUNTER → 2021-11-26 09:37 | Outpatient (CLI) | payer OTHER, MEDICAID, SELFPAY ==
[2021-11-26 11:50] LABS: HCG Quantitative /Beta subunit 17086 mIU/mL
== END ==
PROVIDERS: Family Provider Specialist; PCP Registered Nurse; Referring Provider Specialist; Visit Provider Specialist
DX: Z32.01 Encounter for pregnancy test, result positive (principal)
CPT/HCPCS: 36415; 84702

== ENCOUNTER 2021-11-27 10:13 | Emergency (ER) | payer OTHER, MEDICAID, SELFPAY ==
[2021-11-27 10:32] VITALS: BP 129/76; PULSE 73; RESP 17; O2SAT 98
[2021-11-27 10:35] VITALS: BP 141/77; PULSE 77; RESP 16; TEMP 36.9; O2SAT 97; BMI 32.5
--- NOTE | 2021-11-27 11:07 | DI.US.S_ITS ---
PROCEDURE: US OB <= 14 WEEKS FETUS INDICATIONS: BLEEDING TECHNIQUE: Real-time scanning was performed of the fetus and maternal pelvic organs, with image documentation. Endovaginal scanning was also performed to better visualize the fetus and maternal ovaries. COMPARISON: [facility], US, US OB <= 14 WEEKS FETUS, 11/13/2020, 12:38. FINDINGS: Embryo: There is an irregularly shaped gestational sac which measures 1.5 cm in diameter which corresponds with a gestational age of 6 weeks, 2 days. No definite pole is visualized. A 1.3 x 0.4 x 1.4 cm cystic structure is visualized within the gestational sac. A yolk sac is visualized. There is a 1.0 x 1.2 x 1.5 cm complex cystic structure within the lower uterine segment myometrium. Maternal organs: Not examined. IMPRESSION: 1. Irregularly shaped gestational sac with yolk sac present, but no definite pole visualized. Cystic mass visualized within the gestational sac. Findings suggest demise and miscarriage in process. However, ectopic cannot be excluded and close clinical surveillance and sonographic follow-up recommended. 2. Cystic focus near the cervix which may represent a nabothian cyst. We strive to produce accurate, complete, and clear reports of imaging services. To assist us in improving patient care, this report was composed using standard report templates and voice recognition software. Therefore, it may contain abnormal punctuation, insertions and/or omissions. Occasional wrong-word or sound-alike substitutions may occur. Though we review the report and make efforts to correct it, we do recommend that the report be read carefully in proper context to recognize any text inaccuracies. Dictated by: Kelin Rondon M.D. on 11/27/2021 at 12:21 Approved by: Kelin Rondon M.D. on 11/27/2021 at 12:42
--- NOTE | 2021-11-27 12:48 | ED_ITS ---
HPI - <Reyna Angie Sevilla ASSISTANT CHIEF NURSING OFFICER - Last Filed: 11/27/21 14:21> General Chief complaint: Vaginal Bleeding Stated complaint: - menstrual bleeding Time Seen by Provider: 11/27/21 11:07 Source: patient Mode of arrival: Ambulatory Limitations: no limitations History of Present Illness HPI Narrative: This is a female who found out that she was on November 20, 2021 and presents to the emergency department today vaginal bleeding and cramping that started this morning and is concerned for a miscarriage. Patient states that she took Tylenol at seven for cramping,. Denies any history vaginal bleeding during , states she had four C sections in the past. Patient denies having any ultrasounds for this yet. She states that she spotted in September and in October and was taking Norgest oral contraception. Patient states that she has been under a lot of stress recently, states that she had her blood drawn yesterday, her hCG level per record review was 17,086. She has not had a OBGYN ultrasound yet for this . Patient has follow-up appointment scheduled with Dr. Watkins next week, she states she does not know what day it is on. 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 Related Data Home Medications Medication Instructions Recorded Confirmed ACETAMINOPHEN 650 mg PO PRN ##0 12/28/12 02/28/21 omeprazole 20 mg capsule,delayed 20 mg PO DAILY 08/11/19 02/28/21 release Previous Rx's Medication Instructions Recorded albuterol sulfate 90 mcg/actuation 0 puff INH Q4HP PRN #1 ea 08/23/17 aerosol inhaler (Ventolin HFA) sertraline 50 mg tablet 50 mg PO DAILY Anxiety and 03/29/21 depression #30 tabs sertraline 50 mg tablet (Zoloft) 50 mg PO DAILY@1800 #30 tabs 04/13/21 ferrous gluconate 236 mg (27 mg 236 mg PO DAILY anemia #30 tabs 05/22/21 iron) tablet labetalol 200 mg tablet 200 mg PO BID #60 tabs 05/22/21 oxycodone 5 mg tablet 5 mg PO Q4H PRN pain #20 tabs 05/22/21 vitamin-ferrous fumarate 1 cap PO DAILY breast feeding #90 05/22/21 65 mg iron-folic acid 1 mg capsule caps VIT#96/FERROUS FUM/FA 1 tab PO QDAY #100 tabs 11/22/21 ( Vitamin) docusate sodium 100 mg capsule 200 mg PO DAILY #60 caps 11/28/21 ondansetron 4 mg disintegrating 4 mg PO Q6H PRN nausea and 11/28/21 tablet vomiting #20 tabs vitamins no.119-iron 1 tab PO DAILY #90 tabs 11/28/21 fumarate 29 mg-folic acid 1 mg tablet Allergies Allergy/AdvReac Type Severity Reaction Status Date / Time azithromycin Allergy Intermediate Rash Verified 03/06/21 15:08 cefixime [CEFIXIME] Allergy Unknown Verified 03/06/21 15:08 Penicillins [PENICILLINS] Allergy Unknown Hives Verified 03/06/21 15:08 promethazine [PROMETHAZINE] Allergy Unknown Verified 03/06/21 15:08 amoxicillin Allergy Verified 03/06/21 15:08 sumatriptan AdvReac Intermediate Dizzyness Verified 03/06/21 15:08 Review of Systems <DORA Hawkins - Last Filed: 11/27/21 14:21> Review of Systems Narrative: General: denies fever, chills Head/Neck: denies headache, neck pain Eyes: denies visual changes, eye pain Cardio: denies chest pain, palpitations Respiratory: denies shortness of breath, cough GI: denies abdominal pain, vomiting, or diarrhea, endorses pelvic cramping, low back pain associated with cramping, and bloody vaginal discharge which started early this morning : denies dysuria, hematuria or flank pain MSK: denies new joint pain, muscle weakness or swelling Skin: denies rash, itching or wound Neuro: denies numbness, tingling, dizziness Exam <DORA Hawkins - Last Filed: 11/27/21 14:21> Narrative Exam Narrative: Independently reviewed vitals signs and nursing notes. General: cooperative, comfortable, in emotional distress, well groomed, no pallor, tearful, obese Head: atraumatic, symmetrical facial expressions Neck: supple Eyes: equal round and reactive, EOMI, conjunctiva normal Nose: nares patent, no rhinorrhea Mouth/Throat: moist mucus membranes Cardiovascular: regular rate and rhythm, no peripheral edema, warm extremities Respiratory: normal effort, able to speak in complete sentences, no audible wheezing, stridor, or rales. No retractions or tachypnea. GI: abdomen soft, nontender to palpation, nondistended, no masses, no exquisite tenderness with exam, without guarding or rebound. MSK: moves all extremities, neurovascularly intact, no weakness, normal tone Skin: brisk capillary refill, no rash, no erythema Neuro: normal speech and cognition, A&O x3 Psych: mental status is grossly normal, congruent mood, normal affect, pleasant and cooperative Initial Vital Signs Initial Vital Signs: Vital Signs Pulse Rate 73 11/27/21 10:32 Respiratory Rate 17 11/27/21 10:32 Blood Pressure 129/76 11/27/21 10:32 Pulse Oximetry 98 11/27/21 10:32 <Debo Albrecht DO - Last Filed: 11/30/21 18:01> Initial Vital Signs Initial Vital Signs: Vital Signs Pulse Rate 73 11/27/21 10:32 Respiratory Rate 17 11/27/21 10:32 Blood Pressure 129/76 11/27/21 10:32 Pulse Oximetry 98 11/27/21 10:32 Course <DORA Hawkins - Last Filed: 11/27/21 14:21> Orders Ordered: Discontinued Medications Acetaminophen (Acetaminophen 325 Mg Tablet) 975 mg PO NOW ONE Stop: 11/27/21 12:38 Last Admin: 11/27/21 12:58 Dose: 975 mg Documented By: SHAHZAD Lidocaine (Lidocaine Patch 1 Each Adh..Patch) 2 each TOP NOW ONE Stop: 11/27/21 12:38 Last Admin: 11/27/21 12:58 Dose: 2 each Documented By: SHAHZAD Ondansetron HCl (Ondansetron 4 Mg Odt) 4 mg SL NOW ONE Stop: 11/27/21 12:38 Last Admin: 11/27/21 12:58 Dose: 4 mg Documented By: SHAHZAD Consultations Consultation #1: Consultation with Rosalind from social Work who is establishing an appointment for follow-up with Dr. Watkins tomorrow for the patient Vital Signs Vital signs: Vital Signs - 8 hr 11/27/21 10:32 11/27/21 10:35 11/27/21 13:42 Temperature 98.5 F Pulse Rate 73 77 77 Respiratory Rate 17 16 Blood Pressure 129/76 141/77 H 137/65 Pulse Oximetry 98 97 98 <Debo Albrecht DO - Last Filed: 11/30/21 18:01> Orders Ordered: Discontinued Medications Acetaminophen (Acetaminophen 325 Mg Tablet) 975 mg PO NOW ONE Stop: 11/27/21 12:38 Last Admin: 11/27/21 12:58 Dose: 975 mg Documented By: SHAHZAD Lidocaine (Lidocaine Patch 1 Each Adh..Patch) 2 each TOP NOW ONE Stop: 11/27/21 12:38 Last Admin: 11/27/21 12:58 Dose: 2 each Documented By: SHAHZAD Ondansetron HCl (Ondansetron 4 Mg Odt) 4 mg SL NOW ONE Stop: 11/27/21 12:38 Last Admin: 11/27/21 12:58 Dose: 4 mg Documented By: SHAHZAD Vital Signs Vital signs: Vital Signs - 8 hr 11/27/21 10:32 11/27/21 10:35 11/27/21 13:42 Temperature 98.5 F Pulse Rate 73 77 77 Respiratory Rate 17 16 Blood Pressure 129/76 141/77 H 137/65 Pulse Oximetry 98 97 98 MDM - OB/Uterine Contractions <DORA Hawkins - Last Filed: 11/27/21 14:21> Lab Data Result diagrams: 11/27/21 12:43 11/27/21 12:43 Labs: Lab Results 11/27/21 11/27/21 11/27/21 Range/Units 12:43 12:43 12:43 WBC 12.7 H (4.5-11.0) X10^3/uL RBC 4.70 (4.0-5.2) X10^6/uL Hgb 10.6 L (12.0-16.0) g/dL Hct 32.6 L (36-46) % MCV 70.0 L (80-100) fL MCH 22.5 L (26-34) PG MCHC 32.4 (30-36) % RDW 19.0 H (11.6-14.8) % Plt Count 540 H (150-400) X10^3/uL Neut % (Auto) 80.0 H (50-75) % Lymph % (Auto) 13.9 L (25-40) % [place] % (Auto) 4.3 (3-14) % Eos % (Auto) 0.8 L (2-4) % Baso % (Auto) 1.0 (0-2) % Neut # (Auto) 42532 H (2639-1579) /uL Lymph # (Auto) 1800 (5871-0383) /uL [place] # (Auto) 500 (0-900) /uL Eos # (Auto) 100 (0-450) /uL Baso # (Auto) 100 (0-100) /uL Sodium 136 L (137-145) mmol/L Potassium 3.8 (3.4-5.1) mmol/L Chloride 108 H (98-107) mmol/L Carbon Dioxide 23 (22-32) mmol/L BUN 7 (7-17) mg/dL Creatinine 0.56 (0.52-1.04) mg/dL Estimated GFR > 60 (>60) mL/min BUN/Creatinine Ratio 12.5 (6-22) Glucose 107 H (70-100) mg/dL Calcium 8.4 (8.4-10.2) mg/dL HCG, Quant 48405 mIU/mL Blood Type O Positive Point of Care Testing Test Results Positive Imaging Data US - OB: Radiologist's Impression: PROCEDURE:? US OB <= 14 WEEKS FETUS ? INDICATIONS:? BLEEDING ? ? TECHNIQUE:? Real-time scanning was performed of the fetus and maternal pelvic organs, with image documentation.? Endovaginal scanning was also performed to better visualize the fetus and maternal ovaries.? ? COMPARISON:? [facility], , US OB <= 14 WEEKS FETUS, 11/13/2020, 12:38. ? FINDINGS:? ? Embryo:? There is an irregularly shaped gestational sac which measures 1.5 cm in diameter which corresponds with a gestational age of 6 weeks, 2 days. No definite pole is visualized. A 1.3 x 0.4 x 1.4 cm cystic structure is visualized within the gesta tional sac.? A yolk sac is visualized.? There is a 1.0 x 1.2 x 1.5 cm complex cystic structure within the lower uterine segment myometrium. Maternal organs:? Not examined. ? ? IMPRESSION: ? 1. Irregularly shaped gestational sac with yolk sac present, but no definite pole visualized.? Cystic mass visualized within the gestational sac.? Findings suggest demise and miscarriage in process.? However, ectopic cannot be excluded and close clinical surveillance and sonographic follow-up recommended. ? 2. Cystic focus near the cervix which may represent a nabothian cyst. ? We strive to produce accurate, complete, and clear reports of imaging services. To assist us in improving patient care, this report was composed using standard report templates and voice recognition software. Therefore, it may contain abnormal punctuation, insertions and/or omissions. Occasional wrong-word or sound-alike substitutions may occur. Though we review the report and make efforts to correct it, we do recommend that the report be read carefully in proper context to recognize any text inaccurac ies. ? ? ? Dictated by: Kelin Rondon M.D. on 11/27/2021 at 12:21 ? ? Approved by: Kelin Rondon M.D. on 11/27/2021 at 12:42 ? MDM Narrative Medical decision making narrative: This is a 31-year-old female with history of four C sections who presents to the emergency department today complaining of vaginal bleeding and cramping with a history of a positive test on 11/20/2021. She states that she had vaginal spotting in September and October, and started having vaginal bleeding and cramping this morning after thinking that she was for the last week. Patient denies any vomiting or diarrhea, fever or chills, dysuria, flank pain, or passing any large clots. She states that she feels slightly nauseated, has pelvic cramping and low back pain associated with that. UA was negative for leukocyte esterase, white blood cells, lab work is significant for a mildly WBC at 12.7, hCG level was drawn yesterday and was 17,086, hCG level today is 19,741. OB ultrasound was obtained and report states ?irregularly shaped gestational sac with yolk sac present but no definite pole visualized. Cystic mass visualized within the gestational sac. Findings suggest feeder demise and miscarriage in process, however ectopic cannot be excluded and close clinical surveillance and sonographic follow-up recommended. Cystic focus near the cervix which may represent nabothian cyst.Results were discussed with patient, social work consult was placed as patient had an appointment next week and was not sure if she was having a miscarriage or not. An appoint with Dr. Watkins was made for tomorrow morning 11/28/2021 at 0930 in the morning. Patient states understanding, she was given her hCG results, and expects to have this level drawn again tomorrow and her evaluated again. Discussed return precautions, recommend Tylenol for pain, she was given lidocaine patches for low back pain as well as Zofran and Tylenol for her symptoms. Patient is appropriate and amenable to discharge home. Vital signs are stable on repeat examination is unremarkable. Patient has been informed of results. Patient has been given strict return to ER precautions for any new or worsening symptoms. Patient understands to follow up closely with outpatient providers as instructed. Patient understands plan and agrees to discharge home. All questions and concerns answered at this time. <Debo Albrecht, DO - Last Filed: 11/30/21 18:01> Lab Data Labs: Lab Results 11/27/21 11/27/21 11/27/21 Range/Units 12:43 12:43 12:43 WBC 12.7 H (4.5-11.0) X10^3/uL RBC 4.70 (4.0-5.2) X10^6/uL Hgb 10.6 L (12.0-16.0) g/dL Hct 32.6 L (36-46) % MCV 70.0 L (80-100) fL MCH 22.5 L (26-34) PG MCHC 32.4 (30-36) % RDW 19.0 H (11.6-14.8) % Plt Count 540 H (150-400) X10^3/uL Neut % (Auto) 80.0 H (50-75) % Lymph % (Auto) 13.9 L (25-40) % [place] % (Auto) 4.3 (3-14) % Eos % (Auto) 0.8 L (2-4) % Baso % (Auto) 1.0 (0-2) % Neut # (Auto) 65507 H (0120-3601) /uL Lymph # (Auto) 1800 (9892-1712) /uL [place] # (Auto) 500 (0-900) /uL Eos # (Auto) 100 (0-450) /uL Baso # (Auto) 100 (0-100) /uL Sodium 136 L (137-145) mmol/L Potassium 3.8 (3.4-5.1) mmol/L Chloride 108 H (98-107) mmol/L Carbon Dioxide 23 (22-32) mmol/L BUN 7 (7-17) mg/dL Creatinine 0.56 (0.52-1.04) mg/dL Estimated GFR > 60 (>60) mL/min BUN/Creatinine Ratio 12.5 (6-22) Glucose 107 H (70-100) mg/dL Calcium 8.4 (8.4-10.2) mg/dL HCG, Quant 67263 mIU/mL Blood Type O Positive Point of Care Testing Test Results Positive Discharge Plan Departure Patient Disposition: Home Clinical Impression: Incomplete Instructions: Miscarriage Activity Restrictions/Additional Instructions: Your ultrasound completed today suggests that this is a miscarriage in process. Your hCG level is not completed yet. Social work was able to change your appointment time to tomorrow for follow-up with Dr. Watkins tomorrow at 0930 hours. Please use Tylenol as needed for your pain unless you want to call the emergency department to see which your hCG level resulted to and if it went down, then i t would be safe to take ibuprofen. Please stay hydrated, eat some food today, take care of your mental and physical health. Follow-up with Dr. Mehta tomorrow. I wish you the best, I am sorry for this news, please find out tomorrow with Dr. Watkins what is going on with your . Yesterday your hCG level was 17,086, today it is Please call the Emergency Department at [phone] and ask for your hCG result from today. *What to do: *Please continue to take your regular medications as directed. [ ] New medication prescriptions sent to your pharmacy: [ ] [ ] New medication written as a paper prescription [ x] No new medications given *Please follow up with your primary care provider in 2-3 days, call for an appointment. Let them know you were seen in the Emergency Department and that we asked that you be seen for follow-up. We will electronically transmit a record of today's note if your PCP is in our system *If you do not have a primary care provider please contact [phone] to establish care with one of the [facility] primary care providers. *Return to Emergency Department if you should have any new, worsening or concer serena symptoms, such as [fever greater than 101F, chills, worsening pain, persistent vomiting or other bothersome symptoms] Prescriptions: No Action ACETAMINOPHEN 650 mg PO PRN Qty: 0 albuterol sulfate [Ventolin HFA] 90 MCG/PUFF HFA aerosol inhaler 0 puff INH Q4HP PRNQty: 1 0RF VIT#96/FERROUS FUM/FA ( Vitamin) 1 tab PO QDAY Qty: 100 3RF omeprazole 20 mg capsule,delayed release(DR/EC) 20 mg PO DAILY Label Comments: Patient states she is out and will call for a refill sertraline 50 mg tablet 50 mg PO DAILY Qty: 30 0RF Rx Instructions: Take 1/2 a day for 3 days then increase to 1 a day docusate sodium 100 mg capsule 200 mg PO DAILY Qty: 60 2RF PNV 119-iron fum-folic acid 29 mg iron- 1 mg tablet 1 tab PO DAILY Qty: 90 3RF ondansetron 4 mg tablet,disintegrating 4 mg PO Q6H PRN (Reason: nausea and vomiting) Qty: 20 3RF labetalol 200 mg tablet 200 mg PO BID Qty: 60 12RF oxycodone 5 mg tablet 5 mg PO Q4H PRN (Reason: pain) Qty: 20 0RF ferrous gluconate 236 mg (27 mg iron) tablet 236 mg PO DAILY Qty: 30 0RF vit-iron fum-folic ac 65 mg iron- 1 mg capsule 1 cap PO DAILY Qty: 90 0RF sertraline [Zoloft] 50 mg Tablet 50 mg PO DAILY@1800 Qty: 30 12RF Referrals: Cristina Watkins MD [Family Provider] - See Holm ARNP [Primary Care Provider] - Visit Report Forms: Patient Portal/API <Debo Albrecht DO - Last Filed: 11/30/21 18:01> Cosign ED Attending Jimenez Attestation: I was immediately available in the department for consultation. Documentation has been reviewed.
[2021-11-27 12:56] LABS: Add Manual Diff / Slide Review NO; Basophils Absolute Auto 100 /uL (0-100); Eosinophils Absolute Auto 100 /uL (0-450); Eosinophils Percent Auto 0.8 % (2-4); Hematocrit 32.6 % (36-46); Hemoglobin 10.6 g/dL (12.0-16.0); Lymphocytes Absolute Auto 1800 /uL (1100-4500); Lymphocytes Percent Auto 13.9 % (25-40); Mean Corpuscular HGB Conc 32.4 % (30-36); Mean Corpuscular Hemoglobin 22.5 PG (26-34); Monocytes Absolute Auto 500 /uL (0-900); Monocytes Percent Auto 4.3 % (3-14); Neutrophils Absolute Auto 10100 /uL (1500-7000); Platelet Count 540 X10^3/uL (150-400); White Blood Cell Count 12.7 X10^3/uL (4.5-11.0)
[2021-11-27] MEDS: ACETAMINOPHEN 325 MG TABLET 975 MG PO (12:58)
[2021-11-27] MEDS: ONDANSETRON 4 MG ODT SL (12:58)
[2021-11-27] MEDS: LIDOCAINE PATCH 1 EACH ADH..PATCH 2 EACH TOP (12:58)
[2021-11-27 13:06] LABS: BUN Creatinine Ratio 12.5 (6-22); Blood Urea Nitrogen 7 mg/dL (7-17); Calcium 8.4 mg/dL (8.4-10.2); Carbon Dioxide 23 mmol/L (22-32); Chloride 108 mmol/L (98-107); Estimated Glomerular Filt Rate > 60 mL/min (>60); Glucose 107 mg/dL (70-100); HEMOLYSIS < 15 (0-50); Potassium 3.8 mmol/L (3.4-5.1); Sodium 136 mmol/L (137-145)
--- NOTE | 2021-11-27 13:15 | CM.SWNOTE ---
Patient is a 31 yo female who was admitted to [place] ED for vaginal bleeding on 11/27/21. Per ED MD, [employer] SALESPERSON Consult placed as pt currently and may be having a miscarriage and requesting [employer] SALESPERSON assist to determine when pt's appointment is already scheduled with [facility] [employer] Dr. Watkins for maybe next week but pt cannot remember and ED MD hopeful for a f/u appointment with OBGYN bg. SW can see pt's upcoming appointment with Dr. Watkins next week on ThuDecember 04, 2021. SUDARSHAN called Roland safety admin assistant/RN and updated and confirmed pt is just establishing care with Dr. Watkins but they can schedule pt for a [facility] Ultrasound Check for tomorrow 11/28/21 at 0945 at Roland's office. SUDARSHAN updated ED RN who updated pt and will update ED MD. Plan: Patient to likely d/c from ED today with urgent OBGYN appointment moved to tomorrow 11/28/21 at 0945. STIVEN Gaytan
[2021-11-27 13:42] VITALS: BP 137/65; PULSE 77; O2SAT 98
[2021-11-27 13:47] LABS: HCG Quantitative /Beta subunit 19741 mIU/mL
--- NOTE | 2021-11-27 14:25 | PC.NURSE ---
1320 Patient requesting to leave, states she wants to see her provider and to know why it is taking so long and what she is doing. Provider Crew informed and aware. At bedside discussing results and plan with the patient.
== END 2021-11-27 14:01 | disposition home or self-care (01) ==
PROVIDERS: Emergency Medicine; Emergency Provider Nurse Practitioner Critical Care Medicine; Family Provider Specialist; PCP Registered Nurse
DX: O03.4 Incomplete spontaneous abortion without complication (principal)
CPT/HCPCS: 36415; 76801; 76817; 80048; 81025; 84702; 85025; 86900; 86901; 99283

== ENCOUNTER → 2021-12-04 08:28 | Outpatient (CLI) | payer OTHER, MEDICAID, SELFPAY | PROVIDERS: Family Provider Specialist; PCP Registered Nurse; Referring Provider Physician Assistant; Visit Provider Physician Assistant | DX: S22.32XG Fracture of one rib, left side, subsequent encounter for fracture with delayed healing (principal); Z53.8 Procedure and treatment not carried out for other reasons ==

== ENCOUNTER 2021-12-11 23:59 | Emergency (ER) | payer OTHER, MEDICAID, SELFPAY ==
[2021-12-12 00:09] VITALS: BP 142/85; PULSE 80; RESP 18; TEMP 37.1; O2SAT 98
--- NOTE | 2021-12-12 00:31 | DI.US.S_ITS ---
PROCEDURE: US OB <= 14 WEEKS FETUS INDICATIONS: BLEEDING WITH FIRST TRIMESTER OUTSIDE/PRIOR DATING DATA: Last menstrual period (LMP): Unknown. TECHNIQUE: Real-time scanning was performed of the fetus and maternal pelvic organs, with image documentation. Endovaginal scanning was also performed to better visualize the fetus and maternal ovaries. COMPARISON: [facility], US, US OB <= 14 WEEKS FETUS, 12/11/2021, 11:56. FINDINGS: Embryo: There is an intrauterine with a gestational sac, yolk sac, and pole identified. The crown-rump length measures up to 1.1 cm corresponding to a gestational age of 7 weeks 2 days. There is heart motion with a rate of 145 beats per minute. There is a subchorionic hematoma demonstrated measuring approximately 4.7 x 4.5 x 1.4 cm. Maternal organs: Ovaries appear within normal size limits. There is a thick-walled cyst in the left ovary measuring up to 2.2 cm likely representing a corpus luteal cyst. IMPRESSION: 1. Single living intrauterine with calculated gestational age of 7 weeks 2 days corresponding to an estimated delivery date of 07/29/2022. 2. Perigestational subchorionic hematoma demonstrated. Recommend clinical follow-up and a repeat ultrasound to demonstrate resolution if clinically indicated. We strive to produce accurate, complete, and clear reports of imaging services. To assist us in improving patient care, this report was composed using standard report templates and voice recognition software. Therefore, it may contain abnormal punctuation, insertions and/or omissions. Occasional wrong-word or sound-alike substitutions may occur. Though we review the report and make efforts to correct it, we do recommend that the report be read carefully in proper context to recognize any text inaccuracies. Dictated by: Leonard Henriquez M.D. on 12/12/2021 at 2:11 Approved by: Leonard Henriquez M.D. on 12/12/2021 at 2:15
[2021-12-12 00:32] LABS: Basophils Absolute Auto 200 /uL (0-100); Basophils Percent Auto 0.9 % (0-2); Eosinophils Absolute Auto 100 /uL (0-450); Eosinophils Percent Auto 0.5 % (2-4); Hematocrit 31.2 % (36-46); Hemoglobin 10.4 g/dL (12.0-16.0); Lymphocytes Absolute Auto 2400 /uL (1100-4500); Lymphocytes Percent Auto 14.7 % (25-40); Mean Corpuscular HGB Conc 33.4 % (30-36); Monocytes Absolute Auto 900 /uL (0-900); Monocytes Percent Auto 5.6 % (3-14); Neutrophils Absolute Auto 13000 /uL (1500-7000); Neutrophils Percent Auto 78.3 % (50-75); Platelet Count 555 X10^3/uL (150-400); Red Blood Cell Count 4.52 X10^6/uL (4.0-5.2); Red Cell Distribution Width 20.1 % (11.6-14.8); White Blood Cell Count 16.6 X10^3/uL (4.5-11.0)
[2021-12-12 00:33] LABS: Add Manual Diff / Slide Review SLIDE REVIEW
--- NOTE | 2021-12-12 00:38 | ED.PREGNANCY ---
HPI - General Chief complaint: OB/Uterine Contractions Stated complaint: FEVER, CLOTS GOING THRU MISCARRIAGE Time Seen by Provider: 12/12/21 00:17 Source: patient Mode of arrival: Ambulatory Limitations: no limitations History of Present Illness HPI Narrative: Patient here for vaginal bleeding. Patient is . Seven weeks and 1 day. Patient seen by her OB provider today, Dr. Cristina Watkins. Had ultrasound in the office that showed heartbeat of 144. Patient was seen here 2 weeks ago for threatened miscarriage. Blood type O positive. At that time quantitative hCG was . Patient has been tired and dizzy and fatigued. Has had vaginal bleeding each day. She states she did have a fever of 103 earlier today but did not take anything. No fever here. Otherwise no cough cold congestion fever chills. Patient states had more vaginal bleeding prior to arrival. No urinary complaints Related Data Previous Rx's Medication Instructions Recorded albuterol sulfate 90 mcg/actuation 0 puff INH Q4HP PRN #1 ea 08/23/17 aerosol inhaler (Ventolin HFA) sertraline 50 mg tablet 50 mg PO DAILY Anxiety and 03/29/21 depression #30 tabs ferrous gluconate 236 mg (27 mg 236 mg PO DAILY anemia #30 tabs 05/22/21 iron) tablet labetalol 200 mg tablet 200 mg PO BID #60 tabs 05/22/21 oxycodone 5 mg tablet 5 mg PO Q4H PRN pain #20 tabs 05/22/21 vitamin-ferrous fumarate 1 cap PO DAILY breast feeding #90 05/22/21 65 mg iron-folic acid 1 mg capsule caps VIT#96/FERROUS FUM/FA 1 tab PO QDAY #100 tabs 11/22/21 ( Vitamin) docusate sodium 100 mg capsule 200 mg PO DAILY #60 caps 11/28/21 ondansetron 4 mg disintegrating 4 mg PO Q6H PRN nausea and 11/28/21 tablet vomiting #20 tabs vitamins no.119-iron 1 tab PO DAILY #90 tabs 11/28/21 fumarate 29 mg-folic acid 1 mg tablet Allergies Allergy/AdvReac Type Severity Reaction Status Date / Time azithromycin Allergy Intermediate Rash Verified 03/06/21 15:08 cefixime [CEFIXIME] Allergy Unknown Verified 03/06/21 15:08 Penicillins [PENICILLINS] Allergy Unknown Hives Verified 03/06/21 15:08 promethazine [PROMETHAZINE] Allergy Unknown Verified 03/06/21 15:08 amoxicillin Allergy Verified 03/06/21 15:08 sumatriptan AdvReac Intermediate Dizzyness Verified 03/06/21 15:08 Review of Systems Review of Systems Narrative: GENERAL: Denies chills, positive for fatigue, malaise, fever, negative for sweats. HEENT: Denies sinus pain, ear pain, sore throat RESPIRATORY: Denies dyspnea, cough CARDIOVASCULAR: Denies chest pain, palpitations GASTROINTESTINAL: Denies nausea, vomiting, abdominal pain : Denies dysuria, frequency, hematuria, positive for vaginal bleeding. MUSCULOSKELETAL: denies muscle or bony pain SKIN: Denies rash, skin lesions NEUROLOGIC: Denies weakness, numbness ROS Unobtainable: All systems reviewed & are unremarkable except as noted in HPI and below Exam Narrative Exam Narrative: GENERAL: in no distress, not toxic not dyspneic HEAD: Normocephalic. EYES: Pupils equal round No scleral icterus. No pale conjunctiva ENT: Mucous membranes moist. NECK: Trachea midline. CARDIOVASCULAR: Regular rate and rhythm without murmurs RESPIRATORY: Clear to auscultation. Breath sounds equal bilaterally. No wheezes, rales, or rhonchi. GASTROINTESTINAL: Abdomen soft, non-tender no peritoneal signs bowel sounds present. EXTREMITIES: No gross deformities. BACK: No flank tenderness. NEURO: AOx4. SKIN: Warm and dry PSYCH: Not anxious, is cooperative Initial Vital Signs Initial Vital Signs: Vital Signs Temperature 98.8 F 12/12/21 00:09 Pulse Rate 80 12/12/21 00:09 Respiratory Rate 18 12/12/21 00:09 Blood Pressure 142/85 H 12/12/21 00:09 Pulse Oximetry 98 12/12/21 00:09 Oxygen Delivery Method 12/12/21 00:09 Course Orders Ordered: ED Orders 12/12/21 00:10 BMP [Basic Metabolic Panel] Stat Complete Blood Count AUTO DIFF Stat HCG Quantitative /Beta subunit Stat 12/12/21 00:31 US OB <= 14 weeks fetus Stat 12/12/21 01:55 Urine Culture Stat Urine Microscopic Stat Vital Signs Vital signs: Vital Signs - 8 hr 12/12/21 00:09 12/12/21 02:37 Temperature 98.8 F Pulse Rate 80 79 Respiratory Rate 18 18 Blood Pressure 142/85 H 136/82 Pulse Oximetry 98 99 Oxygen Delivery Method Room Air Room Air MDM - OB/Uterine Contractions Differential Diagnosis Differential diagnosis: Likely other (Threatened miscarriage. UTI.) Lab Data Result diagrams: 12/12/21 00:10 12/12/21 00:10 Labs: Lab Results 12/12/21 12/12/21 12/12/21 Range/Units 00:10 00:10 00:10 WBC 16.6 H (4.5-11.0) X10^3/uL RBC 4.52 (4.0-5.2) X10^6/uL Hgb 10.4 L (12.0-16.0) g/dL Hct 31.2 L (36-46) % MCV 69.0 L (80-100) fL MCH 23.0 L (26-34) PG MCHC 33.4 (30-36) % RDW 20.1 H (11.6-14.8) % Plt Count 555 H (150-400) X10^3/uL Neut % (Auto) 78.3 H (50-75) % Lymph % (Auto) 14.7 L (25-40) % [place] % (Auto) 5.6 (3-14) % Eos % (Auto) 0.5 L (2-4) % Baso % (Auto) 0.9 (0-2) % Neut # (Auto) 05159 H (4500-1254) /uL Lymph # (Auto) 2400 (1209-3235) /uL [place] # (Auto) 900 (0-900) /uL Eos # (Auto) 100 (0-450) /uL Baso # (Auto) 200 H (0-100) /uL RBC Morphology See below Anisocytosis 3+ H Microcytosis 1+ H Sodium 136 L (137-145) mmol/L Potassium 3.6 (3.4-5.1) mmol/L Chloride 106 (98-107) mmol/L Carbon Dioxide 22 (22-32) mmol/L BUN 5 L (7-17) mg/dL Creatinine 0.54 (0.52-1.04) mg/dL Estimated GFR > 60 (>60) mL/min BUN/Creatinine Ratio 9.3 (6-22) Glucose 111 H (70-100) mg/dL Calcium 8.2 L (8.4-10.2) mg/dL HCG, Quant 585348 mIU/mL Urine RBC (0-5/HPF) Urine WBC (0-5/HPF) Ur Squamous Epith Cells (0-5/HPF) Urine Bacteria (None) Urine Mucus (Negative) Ur Culture Indicated? 12/12/21 Range/Units 01:55 WBC (4.5-11.0) X10^3/uL RBC (4.0-5.2) X10^6/uL Hgb (12.0-16.0) g/dL Hct (36-46) % MCV (80-100) fL MCH (26-34) PG MCHC (30-36) % RDW (11.6-14.8) % Plt Count (150-400) X10^3/uL Neut % (Auto) (50-75) % Lymph % (Auto) (25-40) % [place] % (Auto) (3-14) % Eos % (Auto) (2-4) % Baso % (Auto) (0-2) % Neut # (Auto) (4999-5951) /uL Lymph # (Auto) (7498-7679) /uL [place] # (Auto) (0-900) /uL Eos # (Auto) (0-450) /uL Baso # (Auto) (0-100) /uL RBC Morphology Anisocytosis Microcytosis Sodium (137-145) mmol/L Potassium (3.4-5.1) mmol/L Chloride (98-107) mmol/L Carbon Dioxide (22-32) mmol/L BUN (7-17) mg/dL Creatinine (0.52-1.04) mg/dL Estimated GFR (>60) mL/min BUN/Creatinine Ratio (6-22) Glucose (70-100) mg/dL Calcium (8.4-10.2) mg/dL HCG, Quant mIU/mL Urine RBC >100/hpf H (0-5/HPF) Urine WBC 0-1/hpf (0-5/HPF) Ur Squamous Epith Cells 1-5 /hpf (0-5/HPF) Urine Bacteria None seen (None) Urine Mucus 1+ H (Negative) Ur Culture Indicated? Specimen cultured Urine Dip Bedside Urine Glucose Negative Bedside Urine Bilirubin - Negative Bedside Urine Ketone - Negative Urine Specific [place] 1.030 Bedside Urine Occult Blood +++ Bedside Urine pH 6.0 Bedside Urine Protein + 30 Bedside Urine Urobilinogen - Negative Bedside Urine Nitrite - Negative Bedside Urine Leukocytes +/- 15 Esterase Imaging Data US - OB: Radiologist's Impression: [address] [address] Ultrasound Report Signed Patient: Elvia Etienne MR#: [id number] : 1990 Acct:[id number] Age/Sex: 31 / F Date of Service: 12/12/21 Loc: ED Accession Number: [id number] ?? Procedure: US OB <= 14 weeks fetus Ordering Provider: Tony Spears MD PROCEDURE:? US OB <= 14 WEEKS FETUS ? INDICATIONS:? BLEEDING WITH FIRST TRIMESTER ? OUTSIDE/PRIOR DATING DATA:? Last menstrual period (LMP):? Unknown.? ? TECHNIQUE:? Real-time scanning was performed of the fetus and maternal pelvic organs, with image documentation.? Endovaginal scanning was also performed to better visualize the fetus and maternal ovaries.? ? COMPARISON:? [facility], , US OB <= 14 WEEKS FETUS, 12/11/2021, 11:56. ? FINDINGS:? ? Embryo:? There is an intrauterine with a gestational sac, yolk sac, and pole identified.? The crown-rump length measures up to 1.1 cm corresponding to a gestational age of 7 weeks 2 days.? There is heart motion with a rate of 145 beats per minute.? There is a subchorionic hematoma demonstrated measuring approximately 4.7 x 4.5 x 1.4 cm. ? Maternal organs:? Ovaries appear within normal size limits.? There is a thick-walled cyst in the left ovary measuring up to 2.2 cm likely representing a corpus luteal cyst. ? IMPRESSION:? ? 1.? Single living intrauterine with calculated gestational age of 7 weeks 2 days corresponding to an estimated delivery date of 07/29/2022. ? 2. Perigestational subchorionic hematoma demonstrated.? Recommend clinical follow-up and a repeat ultrasound to demonstrate resolution if clinically indicated.? ? We strive to produce accurate, complete, and clear reports of imaging services. To assist us in improving patient care, this report was composed using standard report templates and voice recognition software. Therefore, it may contain abnormal punctuation, insertions and/or omissions. Occasional wrong-word or sound-alike substitutions may occur. Though we review the report and make efforts to correct it, we do recommend that the report be read carefully in proper context to recognize any text inaccuracies. ? Dictated by: Leonard Henriquez M.D. on 12/12/2021 at 2:11 ? ? Approved by: Leonard Henriquez M.D. on 12/12/2021 at 2:15 ? MDM Narrative Medical decision making narrative: Appropriate for discharge home. Exam and laboratory studies and imaging are reassuring. Patient has baseline leukocytosis. No fever here. Not toxic. Discharge Plan Departure Patient Disposition: Home Clinical Impression: Threatened miscarriage in early Instructions: DI for Threatened Activity Restrictions/Additional Instructions: Return if worsening questions or concerns. See your OBGYN doctor as scheduled for re-evaluation. Continue home medications and vitamins. No sexual activity. Prescriptions: No Action albuterol sulfate [Ventolin HFA] 90 MCG/PUFF HFA aerosol inhaler 0 puff INH Q4HP PRNQty: 1 0RF VIT#96/FERROUS FUM/FA ( Vitamin) 1 tab PO QDAY Qty: 100 3RF sertraline 50 mg tablet 50 mg PO DAILY Qty: 30 0RF Rx Instructions: Take 1/2 a day for 3 days then increase to 1 a day docusate sodium 100 mg capsule 200 mg PO DAILY Qty: 60 2RF PNV 119-iron fum-folic acid 29 mg iron- 1 mg tablet 1 tab PO DAILY Qty: 90 3RF ondansetron 4 mg tablet,disintegrating 4 mg PO Q6H PRN (Reason: nausea and vomiting) Qty: 20 3RF labetalol 200 mg tablet 200 mg PO BID Qty: 60 12RF oxycodone 5 mg tablet 5 mg PO Q4H PRN (Reason: pain) Qty: 20 0RF ferrous gluconate 236 mg (27 mg iron) tablet 236 mg PO DAILY Qty: 30 0RF vit-iron fum-folic ac 65 mg iron- 1 mg capsule 1 cap PO DAILY Qty: 90 0RF Referrals: Cristina Watkins MD [Family Provider] - See Holm ARNP [Primary Care Provider] - Visit Report Forms: Patient Portal/API
[2021-12-12 00:42] LABS: BUN Creatinine Ratio 9.3 (6-22); Blood Urea Nitrogen 5 mg/dL (7-17); Calcium 8.2 mg/dL (8.4-10.2); Carbon Dioxide 22 mmol/L (22-32); Chloride 106 mmol/L (98-107); Estimated Glomerular Filt Rate > 60 mL/min (>60); Glucose 111 mg/dL (70-100); HEMOLYSIS < 15 (0-50); Potassium 3.6 mmol/L (3.4-5.1); Sodium 136 mmol/L (137-145)
[2021-12-12 01:11] LABS: HCG Quantitative /Beta subunit 119380 mIU/mL
--- NOTE | 2021-12-12 01:21 | PC.NURSE ---
Pt asking to have PIV removed from her arm because it isn't being used for anything and it's irritating. Pt understands that an IV may need to be placed at a later time if indicated.
[2021-12-12 02:30] LABS: Bacteria Urine None Seen; Culture Indicated Urine Specimen Cultured; Mucus Urine 1+ (Negative); RBC Urine >100/HPF (0-5/HPF); Squamous Epithelial Cell Urine 1-5 /HPF (0-5/HPF); WBC Urine 0-1/HPF (0-5/HPF)
[2021-12-12 02:37] VITALS: BP 136/82; PULSE 79; RESP 18; O2SAT 99
[2021-12-12 02:49] LABS: Anisocytosis 3+; Microcytosis 1+
== END 2021-12-12 02:37 | disposition home or self-care (01) ==
PROVIDERS: Emergency Provider Emergency Medicine; Family Provider Specialist; PCP Registered Nurse
DX: O20.0 Threatened abortion (principal); Z3A.01 Less than 8 weeks gestation of pregnancy
CPT/HCPCS: 76801; 76817; 80048; 81003; 81015; 84702; 85025; 87086; 99282; 99284

== ENCOUNTER → 2021-12-13 10:42 | Outpatient (CLI) | payer OTHER, MEDICAID, SELFPAY | PROVIDERS: Family Provider Specialist; PCP Registered Nurse; Referring Provider Registered Nurse; Visit Provider Nurse Practitioner Family | DX: Z09 Encounter for follow-up examination after completed treatment for conditions other than malignant neoplasm (principal); I10 Essential (primary) hypertension; F10.99 Alcohol use, unspecified with unspecified alcohol-induced disorder; F32.A Depression, unspecified; F41.9 Anxiety disorder, unspecified; Z33.1 Pregnant state, incidental; Z3A.00 Weeks of gestation of pregnancy not specified; Z87.2 Personal history of diseases of the skin and subcutaneous tissue | CPT/HCPCS: 99212; 99213 ==

== ENCOUNTER 2022-02-20 12:42 | Emergency (ER) | payer OTHER, MEDICAID, SELFPAY ==
[2022-02-20 12:43] VITALS: BP 132/72; PULSE 111; RESP 14; TEMP 36.8; O2SAT 100; BMI 32.8
[2022-02-20 13:18] LABS: Add Manual Diff / Slide Review NO; Basophils Absolute Auto 100 /uL (0-100); Basophils Percent Auto 0.7 % (0-2); Eosinophils Absolute Auto 100 /uL (0-450); Eosinophils Percent Auto 0.6 % (2-4); Hematocrit 24.5 % (36-46); Hemoglobin 7.5 g/dL (12.0-16.0); Lymphocytes Absolute Auto 1800 /uL (1100-4500); Lymphocytes Percent Auto 21.5 % (25-40); Mean Corpuscular HGB Conc 30.7 % (30-36); Mean Corpuscular Hemoglobin 18.9 PG (26-34); Mean Corpuscular Volume 61.6 fL (80-100); Monocytes Absolute Auto 500 /uL (0-900); Monocytes Percent Auto 6.3 % (3-14); Neutrophils Absolute Auto 5900 /uL (1500-7000); Neutrophils Percent Auto 70.9 % (50-75); Platelet Count 533 X10^3/uL (150-400); Red Blood Cell Count 3.98 X10^6/uL (4.0-5.2); Red Cell Distribution Width 19.6 % (11.6-14.8); White Blood Cell Count 8.3 X10^3/uL (4.5-11.0)
[2022-02-20 13:42] LABS: Alanine Aminotransferase 15 IU/L (<35); Albumin 4.1 g/dL (3.5-5.0); Albumin Globulin Ratio 1.1 (1.0-2.8); Alkaline Phosphatase 67 U/L (38-126); Aspartate Aminotransferase 21 IU/L (14-36); BUN Creatinine Ratio 9.3 (6-22); Bilirubin Total 0.3 mg/dL (0.2-1.3); Blood Urea Nitrogen 5 mg/dL (7-17); Calcium 8.5 mg/dL (8.4-10.2); Carbon Dioxide 26 mmol/L (22-32); Chloride 106 mmol/L (98-107); Estimated Glomerular Filt Rate > 60 mL/min (>60); Globulin 3.9 g/dL (1.7-4.1); Glucose 89 mg/dL (70-100); HEMOLYSIS < 15 (0-50); Lipase 35 U/L (23-300); Microcytosis 3+; Potassium 3.5 mmol/L (3.4-5.1); Sodium 139 mmol/L (137-145)
[2022-02-20 13:44] LABS: INR 1.3 (0.9-1.3); Prothrombin Time 14.9 SECONDS (10.1-12.7)
[2022-02-20 13:45] LABS: PTT Partial Thromboplastin Tim 30 SECONDS (26-36)
--- NOTE | 2022-02-20 13:52 | ED_ITS ---
HPI - Abdominal Pain General Chief Complaint: Abdominal Pain Stated Complaint: Abd pain since Thursday Time Seen by Provider: 02/20/22 13:52 Source: patient Mode of arrival: Ambulatory History of Present Illness HPI narrative: Patient is a 31-year-old female , recent miscarriage in November at 7 weeks and 1 day presenting today with lower abdominal pain. She says that she started having a sore bleeding like a menstrual cycle. Although she says the 1st 2 days she was bleeding quite heavily seems to have slowed down today. She denies any dizziness or lightheadedness. She has had pain all across her lower abdomen radiating up for the last 4 days. She has not taken anything for this pain. She denies nausea or vomiting. Urine test is positive today. She is not actively trying to get Related Data Previous Rx's Medication Instructions Recorded albuterol sulfate 90 mcg/actuation 0 puff INH Q4HP PRN #1 ea 08/23/17 aerosol inhaler (Ventolin HFA) sertraline 50 mg tablet 50 mg PO DAILY Anxiety and 03/29/21 depression #30 tabs ferrous gluconate 236 mg (27 mg 236 mg PO DAILY anemia #30 tabs 05/22/21 iron) tablet labetalol 200 mg tablet 200 mg PO BID #60 tabs 05/22/21 oxycodone 5 mg tablet 5 mg PO Q4H PRN pain #20 tabs 05/22/21 vitamin-ferrous fumarate 1 cap PO DAILY breast feeding #90 05/22/21 65 mg iron-folic acid 1 mg capsule caps VIT#96/FERROUS FUM/FA 1 tab PO QDAY #100 tabs 11/22/21 ( Vitamin) docusate sodium 100 mg capsule 200 mg PO DAILY #60 caps 11/28/21 ondansetron 4 mg disintegrating 4 mg PO Q6H PRN nausea and 11/28/21 tablet vomiting #20 tabs vitamins no.119-iron 1 tab PO DAILY #90 tabs 11/28/21 fumarate 29 mg-folic acid 1 mg tablet ondansetron 4 mg disintegrating 4 mg PO Q8H PRN nausea and 02/20/22 tablet vomiting #10 tabs Allergies Allergy/AdvReac Type Severity Reaction Status Date / Time azithromycin Allergy Intermediate Rash Verified 02/20/22 12:57 cefixime [CEFIXIME] Allergy Unknown Verified 02/20/22 12:57 Penicillins [PENICILLINS] Allergy Unknown Hives Verified 02/20/22 12:57 promethazine [PROMETHAZINE] Allergy Unknown Verified 02/20/22 12:57 amoxicillin Allergy Verified 02/20/22 12:57 sumatriptan AdvReac Intermediate Dizzyness Verified 02/20/22 12:57 Review of Systems Review of Systems Narrative: GENERAL: Denies chills, fatigue, malaise, fever, sweats, travel HEENT: Denies sinus pain, ear pain, sore throat, difficulty swallowing, neck pain RESPIRATORY: Denies dyspnea, cough, wheezing, hemoptysis, sputum. CARDIOVASCULAR: Denies chest pain, palpitations, orthopnea, edema GASTROINTESTINAL: See HPI : Denies dysuria, frequency, incontinence, hematuria, urinary retention, flank pain. MUSCULOSKELETAL: Denies weakness, joint pain, or bony pain SKIN: No rash, no erythema, no pruritus NEUROLOGIC: Denies weakness, dizziness, headache, numbness, change in speech, confusion PSYCHIATRIC: No concerning psychosocial issues. 12 point review of systems is negative except for those stated above and HPI Patient History Medical History Allergic rhinitis Alopecia (~04/02/20) Asthma Chalazion Chronic headache Depressive disorder Essential hypertension (~07/2019) Genital herpes (~2012) GERD (gastroesophageal reflux disease) HSV-1 (herpes simplex virus 1) infection (~2012) Hypertension Incomplete Iron deficiency (~09/13/20) 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 Grandmother Hypertension Grandfather No problems noted. Grandmother No problems noted. Grandfather No problems noted. Family/Other Thyroiditis Social History marital status: unknown Smoking Status: Current every day smoker Smoking Status: Current every day smoker tobacco type: vaping alcohol intake frequency: holidays/special occasions only Alcohol type: hard liquor Substance Use Type: marijuana Exam Initial Vital Signs Initial Vital Signs: Vital Signs Temperature 98.2 F 02/20/22 12:43 Pulse Rate 111 H 02/20/22 12:43 Respiratory Rate 14 02/20/22 12:43 Blood Pressure 132/72 02/20/22 12:43 Pulse Oximetry 100 02/20/22 12:43 Oxygen Delivery Method 02/20/22 12:43 GENERAL: Alert 31-year-old female HEENT: Head atraumatic,EOMI, pupils reactive, face symmetric, [moist] mucous m embranes CARDIOVASCULAR: Regular rate and rhythm without murmurs, rubs or gallops. RESPIRATORY: Breath sounds equal bilaterally, no wheezes rales or rhonchi. ABDOMEN: Soft, nontender. Normoactive bowel sounds all 4 quadrants. No guarding or rebound. EXTREMITIES: Normal range of motion, no clubbing or edema. Neurovascularly intact NEUROLOGICAL: Alert and oriented x4.Normal gait and speech. SKIN: Warm, dry, no laceration, no petechiae, no rashes or lesions. Course Orders Ordered: ED Orders 02/20/22 13:04 Complete Blood Count AUTO DIFF Stat Comprehensive Metabolic Panel Stat Lipase Stat Partial Thromboplastin Time Stat Prothrombin Time INR Stat 02/20/22 13:32 Urine Microscopic Stat 02/20/22 13:53 US pelvic complete Stat 02/20/22 13:54 HCG Quantitative /Beta subunit Stat Vital Signs Vital signs: Vital Signs - 8 hr 02/20/22 12:43 Temperature 98.2 F Pulse Rate 111 H Respiratory Rate 14 Blood Pressure 132/72 Pulse Oximetry 100 Oxygen Delivery Method Room Air MDM - Abdominal Pain Lab Data Result diagrams: 02/20/22 13:04 02/20/22 13:04 Labs: Lab Results 02/20/22 02/20/22 02/20/22 Range/Units 13:04 13:04 13:04 WBC 8.3 (4.5-11.0) X10^3/uL RBC 3.98 L (4.0-5.2) X10^6/uL Hgb 7.5 L (12.0-16.0) g/dL Hct 24.5 L (36-46) % MCV 61.6 L (80-100) fL MCH 18.9 L (26-34) PG MCHC 30.7 (30-36) % RDW 19.6 H (11.6-14.8) % Plt Count 533 H (150-400) X10^3/uL Neut % (Auto) 70.9 (50-75) % Lymph % (Auto) 21.5 L (25-40) % Osborne % (Auto) 6.3 (3-14) % Eos % (Auto) 0.6 L (2-4) % Baso % (Auto) 0.7 (0-2) % Neut # (Auto) 5900 (1548-6715) /uL Lymph # (Auto) 1800 (2349-7294) /uL Osborne # (Auto) 500 (0-900) /uL Eos # (Auto) 100 (0-450) /uL Baso # (Auto) 100 (0-100) /uL RBC Morphology Not Reportable Microcytosis 3+ H PT 14.9 H (10.1-12.7) SECONDS INR 1.3 (0.9-1.3) APTT 30 (26-36) SECONDS Sodium 139 (137-145) mmol/L Potassium 3.5 (3.4-5.1) mmol/L Chloride 106 (98-107) mmol/L Carbon Dioxide 26 (22-32) mmol/L BUN 5 L (7-17) mg/dL Creatinine 0.54 (0.52-1.04) mg/dL Estimated GFR > 60 (>60) mL/min BUN/Creatinine Ratio 9.3 (6-22) Glucose 89 (70-100) mg/dL Calcium 8.5 (8.4-10.2) mg/dL Total Bilirubin 0.3 (0.2-1.3) mg/dL AST 21 (14-36) IU/L ALT 15 (<35) IU/L Alkaline Phosphatase 67 (38-126) U/L Total Protein 8.0 (6.3-8.2) g/dL Albumin 4.1 (3.5-5.0) g/dL Globulin 3.9 (1.7-4.1) g/dL Albumin/Globulin Ratio 1.1 (1.0-2.8) Lipase 35 (23-300) U/L HCG, Quant mIU/mL Urine RBC (0-5/HPF) Urine WBC (0-5/HPF) Ur Squamous Epith Cells (0-5/HPF) Amorphous Sediment Urine Bacteria (None) Ur Culture Indicated? 02/20/22 02/20/22 Range/Units 13:32 13:54 WBC (4.5-11.0) X10^3/uL RBC (4.0-5.2) X10^6/uL Hgb (12.0-16.0) g/dL Hct (36-46) % MCV (80-100) fL MCH (26-34) PG MCHC (30-36) % RDW (11.6-14.8) % Plt Count (150-400) X10^3/uL Neut % (Auto) (50-75) % Lymph % (Auto) (25-40) % Osborne % (Auto) (3-14) % Eos % (Auto) (2-4) % Baso % (Auto) (0-2) % Neut # (Auto) (0643-2168) /uL Lymph # (Auto) (5825-6161) /uL Osborne # (Auto) (0-900) /uL Eos # (Auto) (0-450) /uL Baso # (Auto) (0-100) /uL RBC Morphology Microcytosis PT (10.1-12.7) SECONDS INR (0.9-1.3) APTT (26-36) SECONDS Sodium (137-145) mmol/L Potassium (3.4-5.1) mmol/L Chloride (98-107) mmol/L Carbon Dioxide (22-32) mmol/L BUN (7-17) mg/dL Creatinine (0.52-1.04) mg/dL Estimated GFR (>60) mL/min BUN/Creatinine Ratio (6-22) Glucose (70-100) mg/dL Calcium (8.4-10.2) mg/dL Total Bilirubin (0.2-1.3) mg/dL AST (14-36) IU/L ALT (<35) IU/L Alkaline Phosphatase (38-126) U/L Total Protein (6.3-8.2) g/dL Albumin (3.5-5.0) g/dL Globulin (1.7-4.1) g/dL Albumin/Globulin Ratio (1.0-2.8) Lipase (23-300) U/L HCG, Quant 1561.9 mIU/mL Urine RBC 0-1/hpf D (0-5/HPF) Urine WBC 0-1/hpf (0-5/HPF) Ur Squamous Epith Cells 1-5 /hpf (0-5/HPF) Amorphous Sediment 1+ Urine Bacteria None seen (None) Ur Culture Indicated? 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 Procedure: US pelvic complete Ordering Provider: Analy Nuno D.O. PROCEDURE:? US PELVIC COMPLETE ? INDICATIONS:? bleeding ? TECHNIQUE:? Real-time scanning was performed of the pelvic organs, with image documentation.? Additional endovaginal scanning was necessary due to incomplete visualization of the adnexal and endometrial structures by transabdominal scanning.? ? COMPARISON:? None. ? FINDINGS:? ?? Uterus:? Uterus is anteverted and normal in size at 11.6 x 4.1 x 6.1 cm. The myometrium is heterogenous. ? Within the endometrium there is a 5.2 x 5.1 x 4.7 centimeter mass which demonstrates increased vascularity.? Differential diagnosis includes endometrial mass, fibroid, molar , or less likely retained products of conception.? A right posterior subserosal fibroid measures 1.2 x 0.9 x 0.9 cm.? A left posterior subserosal fibroid measures 1.1 x 1.0 x 1.1 cm ? Ovaries:? The right ovary measures 1.9 x 1.7 x 2.0 cm, with a calculated ovarian volume of 3.4 cc. The left ovary measures 2.3 x 2.0 x 2.3 cm, with a calculated ovarian volume of 5.5 cc. The ovaries have a normal sonographic appearance. Less than 12 follicles can be seen in each ovary.? No adnexal masses are seen. ? Other:? No pathologic free abdominal or pelvic fluid. ? ? IMPRESSION: ? 1. 5.2 x 5.1 x 4.7 centimeter endometrial mass, versus fibroid, versus molar , versus retained products of conception. 2. Subserosal fibroids in the right posterior uterus and left posterior uterus.? We strive to produce accurate, complete, and clear reports of imaging services. To assist us in improving patient care, this report was composed using standard report templates and voice recognition software. Therefore, it may contain abnormal punctuation, insertions and/or omissions. Occasional wrong-word or sound-alike substitutions may occur. Though we review the report and make efforts to correct it, we do recommend that the report be read carefully in proper context to recognize any text inaccuracies. ? ? Dictated by: Tenzin Cameron M.D. on 02/20/2022 at 15:07 ? ? Approved by: Tenzin Cameron M.D. on 02/20/2022 at 15:11 ? MDM Narrative Medical decision making narrative: Patient is found to be hay she GS 1500. Ultrasound shows endometrial mass difficult to tell if it is an intrauterine versus molar versus a fibroid. Dr. Smith notified of patient's results. Recommends repeat hCG in 48 hours she has personally put in the order and for patient to follow-up. She is also anemic. MCV is also noted to be quite low. She will follow-up with OBGYN. Discharge Plan Departure Patient Disposition: Home Clinical Impression: Threatened in early Instructions: DI for Threatened Activity Restrictions/Additional Instructions: GRR=9326.9 *You have been diagnosed with possible early miscarriage *What to do: At this time you must get your hCG rechecked on Thursday. Did order has been placed for you. Check in as an outpatient for a lab draw on ThursdayFebruary 22. No intercourse Monitor vaginal bleeding *Continue to take medications as directed Zofran 4 mg every 8 hours if needed for nausea vomiting --> SENT TO [facility] *Follow up with your primary care provider in 2-3 days or call [phone] Watkins today to schedule follow-up appointment *Return to ER if you should have increased vaginal bleeding more than 2 pads in 1 hour, increased pain, lightheadedness or any new, worsening or concerning symptoms Prescriptions: New ondansetron 4 mg tablet,disintegrating 4 mg PO Q8H PRN (Reason: nausea and vomiting) Qty: 10 0RF No Action albuterol sulfate [Ventolin HFA] 90 MCG/PUFF HFA aerosol inhaler 0 puff INH Q4HP PRNQty: 1 0RF VIT#96/FERROUS FUM/FA ( Vitamin) 1 tab PO QDAY Qty: 100 3RF sertraline 50 mg tablet 50 mg PO DAILY Qty: 30 0RF Rx Instructions: Take 1/2 a day for 3 days then increase to 1 a day docusate sodium 100 mg capsule 200 mg PO DAILY Qty: 60 2RF PNV 119-iron fum-folic acid 29 mg iron- 1 mg tablet 1 tab PO DAILY Qty: 90 3RF ondansetron 4 mg tablet,disintegrating 4 mg PO Q6H PRN (Reason: nausea and vomiting) Qty: 20 3RF labetalol 200 mg tablet 200 mg PO BID Qty: 60 12RF oxycodone 5 mg tablet 5 mg PO Q4H PRN (Reason: pain) Qty: 20 0RF ferrous gluconate 236 mg (27 mg iron) tablet 236 mg PO DAILY Qty: 30 0RF vit-iron fum-folic ac 65 mg iron- 1 mg capsule 1 cap PO DAILY Qty: 90 0RF Referrals: Cristina Watkins MD [Family Provider] - Qian Smith MD [Physician] - See Holm ARNP [Primary Care Provider] - Visit Report Forms: Patient Portal/API
--- NOTE | 2022-02-20 13:53 | DI.US.S_ITS ---
PROCEDURE: US PELVIC COMPLETE INDICATIONS: bleeding TECHNIQUE: Real-time scanning was performed of the pelvic organs, with image documentation. Additional endovaginal scanning was necessary due to incomplete visualization of the adnexal and endometrial structures by transabdominal scanning. COMPARISON: None. FINDINGS: Uterus: Uterus is anteverted and normal in size at 11.6 x 4.1 x 6.1 cm. The myometrium is heterogenous. Within the endometrium there is a 5.2 x 5.1 x 4.7 centimeter mass which demonstrates increased vascularity. Differential diagnosis includes endometrial mass, fibroid, molar , or less likely retained products of conception. A right posterior subserosal fibroid measures 1.2 x 0.9 x 0.9 cm. A left posterior subserosal fibroid measures 1.1 x 1.0 x 1.1 cm Ovaries: The right ovary measures 1.9 x 1.7 x 2.0 cm, with a calculated ovarian volume of 3.4 cc. The left ovary measures 2.3 x 2.0 x 2.3 cm, with a calculated ovarian volume of 5.5 cc. The ovaries have a normal sonographic appearance. Less than 12 follicles can be seen in each ovary. No adnexal masses are seen. Other: No pathologic free abdominal or pelvic fluid. IMPRESSION: 1. 5.2 x 5.1 x 4.7 centimeter endometrial mass, versus fibroid, versus molar , versus retained products of conception. 2. Subserosal fibroids in the right posterior uterus and left posterior uterus. We strive to produce accurate, complete, and clear reports of imaging services. To assist us in improving patient care, this report was composed using standard report templates and voice recognition software. Therefore, it may contain abnormal punctuation, insertions and/or omissions. Occasional wrong-word or sound-alike substitutions may occur. Though we review the report and make efforts to correct it, we do recommend that the report be read carefully in proper context to recognize any text inaccuracies. Dictated by: Tenzin Cameron M.D. on 02/20/2022 at 15:07 Approved by: Tenzin Cameron M.D. on 02/20/2022 at 15:11
[2022-02-20 13:55] LABS: RBC Urine 0-1/HPF (0-5/HPF); Squamous Epithelial Cell Urine 1-5 /HPF (0-5/HPF); WBC Urine 0-1/HPF (0-5/HPF)
[2022-02-20 13:56] LABS: Amorphous Sediment Urine 1+; Bacteria Urine None Seen; Culture Indicated Urine Cult Not Indicated
[2022-02-20 14:36] LABS: HCG Quantitative /Beta subunit 1561.9 mIU/mL
== END 2022-02-20 16:00 | disposition home or self-care (01) ==
PROVIDERS: Emergency Provider Emergency Medicine; Family Provider Specialist; PCP Registered Nurse
DX: O20.0 Threatened abortion (principal)
CPT/HCPCS: 36415; 76830; 76856; 80053; 81003; 81015; 81025; 83690; 84702; 85025; 85610; 85730; 99283; 99284

== ENCOUNTER → 2022-02-25 13:04 | Outpatient (CLI) | payer OTHER, MEDICAID, SELFPAY ==
[2022-02-25 14:44] LABS: HCG Quantitative /Beta subunit 1436.1 mIU/mL
== END ==
PROVIDERS: Family Provider Specialist; PCP Registered Nurse; Referring Provider Obstetrics & Gynecology; Visit Provider Obstetrics & Gynecology
DX: O20.0 Threatened abortion (principal); Z3A.00 Weeks of gestation of pregnancy not specified
CPT/HCPCS: 36415; 84702

== ENCOUNTER 2022-06-10 14:04 | Emergency (ER) | payer OTHER, MEDICAID, SELFPAY ==
[2022-06-10] VITALS (18 sets, daily range): BP systolic 106–134; BP diastolic 56–75; PULSE 72–83; RESP 16; TEMP 36.8–36.9; O2SAT 97–100; BMI 46.9
--- NOTE | 2022-06-10 14:22 | DI.US.S_ITS ---
PROCEDURE: US PELVIC COMPLETE INDICATIONS: BLEEDING. RECENT MISCARRIAGE. TECHNIQUE: Real-time scanning was performed of the pelvic organs, with image documentation. Additional endovaginal scanning was necessary due to incomplete visualization of the adnexal and endometrial structures by transabdominal scanning. COMPARISON: [facility], CT, CT ABDOMEN PELVIS WITH CONTRAST, 06/04/2022, 23:47. [facility], US, US PELVIC COMPLETE WITH TRANSVAGINAL, 06/05/2022, 5:18. [facility], US, US OB <= 14 WEEKS FETUS, 12/12/2021, 2:04. [facility], US, US OB <= 14 WEEKS FETUS, 12/11/2021, 11:56. [facility], US, US OB <= 14 WEEKS FETUS, 12/04/2021, 9:29. [facility], US, US OB <= 14 WEEKS FETUS, 11/27/2021, 11:34. [facility], , US PELVIC COMPLETE, 02/20/2022, 14:21. FINDINGS: Uterus: Uterus is anteverted and normal in size at 8.1 x 5.5 x 4.2 cm. The myometrium is heterogeneous. The endometrium measures 9.1 mm combined thickness. No viable in the endometrial cavity. There is a irregular, hypoechoic mass with punctate calcifications and the micro cyst within the endometrium but also involving the myometrium, measuring 2.8 x 4.2 x 2.2 cm. The mass demonstrates increased vascularity on Doppler ultrasound. Previously, a 5.2 x 5.1 x 4.7 cm mass with seen on 02/20/2022. Ovaries: The right ovary measures 2.8 x 2.6 x 2.5 cm, with a calculated ovarian volume of 9.3 cc. The left ovary measures 2.7 x 1.8 x 2.5 cm, with a calculated ovarian volume of 6.1 cc. The ovaries have a normal sonographic appearance. Less than 12 follicles can be seen in each ovary. No adnexal masses are seen. On Doppler ultrasound, there is vascularity to both ovaries. Other: No pathologic free abdominal or pelvic fluid. IMPRESSION: 1. A 2.8 x 4.2 x 2.2 cm hyperechoic mass within the endometrial cavity extending into the myometrium. In this patient with persistently elevated serum beta HCG, the finding suggests the possibility of molar . A differential diagnoses include retained products of conception. An endometrial mass is also less likely. A hematoma is felt unlikely given presence of vascularity within the mass on Doppler ultrasound. Recommend gynecological consultation. The result was discussed with in ER. We strive to produce accurate, complete, and clear reports of imaging services. To assist us in improving patient care, this report was composed using standard report templates and voice recognition software. Therefore, it may contain abnormal punctuation, insertions and/or omissions. Occasional wrong-word or sound-alike substitutions may occur. Though we review the report and make efforts to correct it, we do recommend that the report be read carefully in proper context to recognize any text inaccuracies. Dictated by: Johnathan Meyer M.D. on 06/10/2022 at 16:02 Approved by: Johnathan Meyer M.D. on 06/10/2022 at 16:20
[2022-06-10 14:31] LABS: Basophils Absolute Auto 100 /uL (0-100); Basophils Percent Auto 0.8 % (0-2); Eosinophils Absolute Auto 100 /uL (0-450); Hematocrit 24.2 % (36-46); Hemoglobin 7.3 g/dL (12.0-16.0); Lymphocytes Absolute Auto 1900 /uL (1100-4500); Lymphocytes Percent Auto 19.9 % (25-40); Mean Corpuscular HGB Conc 30.1 % (30-36); Mean Corpuscular Hemoglobin 16.7 PG (26-34); Mean Corpuscular Volume 55.6 fL (80-100); Monocytes Absolute Auto 600 /uL (0-900); Monocytes Percent Auto 6.2 % (3-14); Neutrophils Absolute Auto 6800 /uL (1500-7000); Neutrophils Percent Auto 72.1 % (50-75); Platelet Count 611 X10^3/uL (150-400); Red Blood Cell Count 4.35 X10^6/uL (4.0-5.2); Red Cell Distribution Width 18.9 % (11.6-14.8); White Blood Cell Count 9.4 X10^3/uL (4.5-11.0)
[2022-06-10 14:34] LABS: Add Manual Diff / Slide Review SLIDE REVIEW
[2022-06-10 14:38] LABS: Alanine Aminotransferase 17 IU/L (<35); Albumin Globulin Ratio 1.1 (1.0-2.8); Alkaline Phosphatase 60 U/L (38-126); Aspartate Aminotransferase 21 IU/L (14-36); BUN Creatinine Ratio 10.8 (6-22); Bilirubin Total 0.3 mg/dL (0.2-1.3); Blood Urea Nitrogen 7 mg/dL (7-17); Calcium 8.7 mg/dL (8.4-10.2); Carbon Dioxide 26 mmol/L (22-32); Chloride 107 mmol/L (98-107); Estimated Glomerular Filt Rate > 60 mL/min (>60); Globulin 3.6 g/dL (1.7-4.1); Glucose 90 mg/dL (70-100); HEMOLYSIS < 15 (0-50); Potassium 3.9 mmol/L (3.4-5.1); Sodium 142 mmol/L (137-145); Total Protein 7.6 g/dL (6.3-8.2)
[2022-06-10 14:50] LABS: Anisocytosis 2+; Hypochromasia 2+; Microcytosis 3+; Platelet Estimate Increased on smear
[2022-06-10 14:53] LABS: HCG Quantitative /Beta subunit 29.2 mIU/mL
--- NOTE | 2022-06-10 15:25 | ED_ITS ---
HPI - Female Genitourinary General Chief complaint: Vaginal Bleeding Stated complaint: miscarraige, ? retained products, vag bleed Time Seen by Provider: 06/10/22 14:22 Source: patient and EMS Mode of arrival: EMS History of Present Illness HPI Narrative: Patient is a 31-year-old female presenting today with vaginal bleeding. She reports miscarriage about 6-7 weeks ago but was seen last week at [facility] for fever and persistent vaginal bleeding. She had workup including blood work pelvic ultrasound and CT. She was diagnosed with an endometrial mass, microcytic anemia, endometritis. HCG at that time was 38 on 08/05/2021. She was given Rocephin in the ED and discharged home on doxycycline and supposed to follow-up with business planner. She says that she is been afraid to follow- up with business planner and she did not knot picker cloth her doxycycline until yesterday. She did no longer has any fever. She actually says that her vaginal bleeding stopped for about a week however yesterday it was quite heavy going through 1 pad an hour. Today she was having more pain she is a little dizzy and lightheaded. But she says the bleeding is definitely a lot less. After reviewing records it appears that she did see Dr. Watkins in November for her previous . Related Data Previous Rx's Medication Instructions Recorded albuterol sulfate 90 mcg/actuation 0 puff INH Q4HP PRN #1 ea 08/23/17 aerosol inhaler (Ventolin HFA) sertraline 50 mg tablet 50 mg PO DAILY Anxiety and 03/29/21 depression #30 tabs ferrous gluconate 236 mg (27 mg 236 mg PO DAILY anemia #30 tabs 05/22/21 iron) tablet labetalol 200 mg tablet 200 mg PO BID #60 tabs 05/22/21 oxycodone 5 mg tablet 5 mg PO Q4H PRN pain #20 tabs 05/22/21 vitamin-ferrous fumarate 1 cap PO DAILY breast feeding #90 05/22/21 65 mg iron-folic acid 1 mg capsule caps VIT#96/FERROUS FUM/FA 1 tab PO QDAY #100 tabs 11/22/21 ( Vitamin) docusate sodium 100 mg capsule 200 mg PO DAILY #60 caps 11/28/21 ondansetron 4 mg disintegrating 4 mg PO Q6H PRN nausea and 11/28/21 tablet vomiting #20 tabs vitamins no.119-iron 1 tab PO DAILY #90 tabs 11/28/21 fumarate 29 mg-folic acid 1 mg tablet ondansetron 4 mg disintegrating 4 mg PO Q8H PRN nausea and 02/20/22 tablet vomiting #10 tabs Allergies Allergy/AdvReac Type Severity Reaction Status Date / Time azithromycin Allergy Intermediate Rash Verified 02/20/22 12:57 cefixime [CEFIXIME] Allergy Unknown Verified 02/20/22 12:57 Penicillins [PENICILLINS] Allergy Unknown Hives Verified 02/20/22 12:57 promethazine [PROMETHAZINE] Allergy Unknown Verified 02/20/22 12:57 amoxicillin Allergy Verified 02/20/22 12:57 sumatriptan AdvReac Intermediate Dizzyness Verified 02/20/22 12:57 Review of Systems Review of Systems ROS Unobtainable: All systems reviewed & are unremarkable except as noted in HPI and below Patient History Medical History Allergic rhinitis Alopecia (~04/02/20) Asthma Chalazion Chronic headache Depressive disorder Essential hypertension (~07/2019) Genital herpes (~2012) GERD (gastroesophageal reflux disease) HSV-1 (herpes simplex virus 1) infection (~2012) Hypertension Incomplete Iron deficiency (~09/13/20) 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 Grandmother Hypertension Grandfather No problems noted. Grandmother No problems noted. Grandfather No problems noted. Family/Other Thyroiditis tobacco type: vaping alcohol intake frequency: holidays/special occasions only Alcohol type: hard liquor Substance Use Type: marijuana Exam Initial Vital Signs Initial Vital Signs: Vital Signs Pulse Rate 76 06/10/22 14:24 Blood Pressure 106/56 L 06/10/22 14:24 Pulse Oximetry 99 06/10/22 14:24 GENERAL: Alert pleasant 31-year-old female HEENT: Head atraumatic,EOMI, pupils reactive, face symmetric, moist mucous membranes CARDIOVASCULAR: Regular rate and rhythm without murmurs, rubs or gallops. RESPIRATORY: Breath sounds equal bilaterally, no wheezes rales or rhonchi. ABDOMEN: Soft, nontender. Normoactive bowel sounds all 4 quadrants. No guarding or rebound. EXTREMITIES: Normal range of motion, no clubbing or edema. Neurovascularly intact NEUROLOGICAL: Alert and oriented x4.Normal gait and speech. SKIN: Warm, dry, no laceration, no petechiae, no rashes or lesions. Course Orders Ordered: Discontinued Medications Ketorolac Tromethamine (Ketorolac 30 Mg/Ml Vial) 15 mg IV NOW ONE Stop: 06/10/22 17:42 Last Admin: 06/10/22 17:58 Dose: 15 mg Documented By: RB Methylergonovine Maleate (Methylergonovine 0.2 Mg/Ml Vial) 0.2 mg IM NOW ONE Stop: 06/10/22 17:31 Last Admin: 06/10/22 17:58 Dose: 0.2 mg Documented By: RB Ondansetron HCl (Ondansetron 4 Mg/2 Ml Inj) 4 mg IV NOW ONE Stop: 06/10/22 17:42 Last Admin: 06/10/22 17:58 Dose: 4 mg Documented By: RB Vital Signs Vital signs: Vital Signs - 8 hr 06/10/22 14:43 06/10/22 14:24 06/10/22 14:24 Temperature 98.4 F Pulse Rate 83 76 Respiratory Rate 16 Blood Pressure 106/56 L 106/56 L Pulse Oximetry 99 99 Oxygen Delivery Method Room Air 06/10/22 14:30 06/10/22 14:30 06/10/22 15:00 Temperature Pulse Rate 78 74 Respiratory Rate Blood Pressure 109/58 L Pulse Oximetry 99 100 Oxygen Delivery Method 06/10/22 16:46 06/10/22 16:49 06/10/22 16:50 Temperature Pulse Rate 76 Respiratory Rate Blood Pressure 127/67 Pulse Oximetry 97 98 Oxygen Delivery Method 06/10/22 16:50 06/10/22 17:06 06/10/22 17:07 Temperature Pulse Rate 72 76 Respiratory Rate Blood Pressure 130/71 Pulse Oximetry 99 99 Oxygen Delivery Method 06/10/22 17:07 06/10/22 17:10 06/10/22 17:10 Temperature Pulse Rate 75 Respiratory Rate Blood Pressure 126/59 L 134/65 Pulse Oximetry 98 Oxygen Delivery Method 06/10/22 17:15 06/10/22 17:15 06/10/22 17:58 Temperature 98.2 F Pulse Rate 77 Respiratory Rate Blood Pressure 119/60 Pulse Oximetry 100 Oxygen Delivery Method MDM - Female Genitourinary Lab Data Result diagrams: 06/10/22 14:13 06/10/22 14:13 Labs: Lab Results 06/10/22 06/10/22 06/10/22 Range/Units 14:13 14:13 15:08 WBC 9.4 (4.5-11.0) X10^3/uL RBC 4.35 (4.0-5.2) X10^6/uL Hgb 7.3 L (12.0-16.0) g/dL Hct 24.2 L (36-46) % MCV 55.6 L (80-100) fL MCH 16.7 L (26-34) PG MCHC 30.1 (30-36) % RDW 18.9 H (11.6-14.8) % Plt Count 611 H (150-400) X10^3/uL Neut % (Auto) 72.1 (50-75) % Lymph % (Auto) 19.9 L (25-40) % Marshall % (Auto) 6.2 (3-14) % Eos % (Auto) 1.0 L (2-4) % Baso % (Auto) 0.8 (0-2) % Neut # (Auto) 6800 (6699-4348) /uL Lymph # (Auto) 1900 (4545-4245) /uL Marshall # (Auto) 600 (0-900) /uL Eos # (Auto) 100 (0-450) /uL Baso # (Auto) 100 (0-100) /uL Platelet Estimate Increased on smear RBC Morphology See below Hypochromasia 2+ H Anisocytosis 2+ H Microcytosis 3+ H Sodium 142 (137-145) mmol/L Potassium 3.9 (3.4-5.1) mmol/L Chloride 107 (98-107) mmol/L Carbon Dioxide 26 (22-32) mmol/L BUN 7 (7-17) mg/dL Creatinine 0.65 (0.52-1.04) mg/dL Estimated GFR > 60 (>60) mL/min BUN/Creatinine Ratio 10.8 (6-22) Glucose 90 (70-100) mg/dL Calcium 8.7 (8.4-10.2) mg/dL Total Bilirubin 0.3 (0.2-1.3) mg/dL AST 21 (14-36) IU/L ALT 17 (<35) IU/L Alkaline Phosphatase 60 (38-126) U/L Total Protein 7.6 (6.3-8.2) g/dL Albumin 4.0 (3.5-5.0) g/dL Globulin 3.6 (1.7-4.1) g/dL Albumin/Globulin Ratio 1.1 (1.0-2.8) HCG, Quant 29.2 mIU/mL Urine RBC 1-5/hpf (0-5/HPF) Urine WBC 5-10/hpf H (0-5/HPF) Ur Squamous Epith Cells 5-10 /hpf H (0-5/HPF) Amorphous Sediment 2+ Urine Bacteria Moderate (10-30) H (None) Urine Dip Bedside Urine Glucose Negative Bedside Urine Ketone +/- 5 Urine Specific [place] 1.015 Bedside Urine Occult Blood - Negative Bedside Urine pH 8.0 Bedside Urine Protein +/- 15 Bedside Urine Urobilinogen 0.2 Bedside Urine Nitrite - Negative Bedside Urine Leukocytes - Negative Esterase Imaging Data US - DRY CLIPPER TENDER: Radiologist's Impression: Signed Patient: Elvia Etienne MR#: [id number] : 1990 Acct:[id number] Age/Sex: 31 / F Date of Service: 06/10/22 Loc: ED Accession Number: [id number] ?? Procedure: US pelvic complete Ordering Provider: Analy Nuno D.O. PROCEDURE:? US PELVIC COMPLETE ? INDICATIONS:? BLEEDING. RECENT MISCARRIAGE. ? TECHNIQUE:? Real-time scanning was performed of the pelvic organs, with image documentation.? Additional endovaginal scanning was necessary due to incomplete visualization of the adnexal and endometrial structures by transabdominal scanning.? ? COMPARISON:? [facility], CT, CT ABDOMEN PELVIS WITH CONTRAST, 06/04/2022, 23:47.? [facility], US, US PELVIC COMPLETE WITH TRANSVAGINAL, 06/05/2022, 5:18.? [facility], , US OB <= 14 WEEKS FETUS, 12/12/2021, 2:04.? [facility], , US OB <= 14 WEEKS FETUS, 12/11/2021, 11:56.? [facility], , US OB <= 14 WEEKS FETUS, 12/04/2021, 9:29.? [facility], US OB <= 14 WEEKS FETUS, 11/27/2021, 11:34.? [facility], , US PELVIC COMPLETE, 02/20/2022, 14:21. ? FINDINGS:? ?? Uterus:? Uterus is anteverted and normal in size at 8.1 x 5.5 x 4.2 cm. The myometrium is heterogeneous. ? The endometrium measures 9.1 mm combined thickness.? No viable in the endometrial cavity.? There is a irregular, hypoechoic mass with punctate calcifications and the micro cyst within the endometrium but also involving the myometrium, measuring 2.8 x 4.2 x 2.2 cm.? The mass demonstrates increased vascularity on Doppler ultrasound.? Previously, a 5.2 x 5.1 x 4.7 cm mass with seen on 02/20/2022. ? Ovaries:? The right ovary measures 2.8 x 2.6 x 2.5 cm, with a calculated ovarian volume of 9.3 cc. The left ovary measures 2.7 x 1.8 x 2.5 cm, with a calculated ovarian volume of 6.1 cc. The ovaries have a normal sonographic appearance. Less than 12 follicles can be seen in each ovary.? No adnexal masses are seen.? On Doppler ultrasound, there is vascularity to both ovaries. ? Other:? No pathologic free abdominal or pelvic fluid. ? ? IMPRESSION:? ? 1. A 2.8 x 4.2 x 2.2 cm hyperechoic mass within the endometrial cavity extending into the myometrium.? In this patient with persistently elevated serum beta HCG, the fin ding suggests the possibility of molar .? A differential diagnoses include retained products of conception.? An endometrial mass is also less likely.? A hematoma is felt unlikely given presence of vascularity within the mass on Doppler ultrasound.? Recommend gynecological consultation. ? The result was discussed with in ER. ? We strive to produce accurate, complete, and clear reports of imaging services. To assist us in improving patient care, this report was composed using standard report templates and voice recognition software. Therefore, it may contain abnormal punctuation, insertions and/or omissions. Occasional wrong-word or sound-alike substitutions may occur. Though we review the report and make efforts to correct it, we do recommend that the report be read carefully in proper context to recognize any text inaccuracies. ? ? Dictated by: Johnathan Meyer M.D. on 06/10/2022 at 16:02 ? ? [facility] Narrative Medical decision making narrative: Patient presents with vaginal bleeding possible endometrial mass versus retained products. He has persistently positive hCG quant last week was 38 today is 29. Vaginal bleeding is not heavy today. She is chronically anemic no any worse today. Vital signs are stable she is not tachycardic or hypotensive. She certainly does have some social aspects difficulty getting transportation. The only way that she could get to the hospital today was by ambulance. She reports that she does have a home but does not have transportation. She has no leukocytosis she is afebrile. She has a prescription for doxycycline. [id number] Dr. Roberth CABRERA on-call has been updated patient's symptoms test results concern for retained products. Recommend IM Methergine 0.2 mg tonight. His office will call her tomorrow and schedule for outpatient procedure I have talked this over with the patient. She states that she thinks that she will be able to get a ride and a rate for transportation for or Thursday but would prefer Thursday. She is still wanting something for pain and nausea. Discharge Plan Departure Patient Disposition: Home Clinical Impression: Retained products of conception Instructions: DI for Vaginal Bleeding Activity Restrictions/Additional Instructions: *You have been diagnosed with vaginal bleeding *What to do: You will need a procedure. However not emergently today. Dr. Lepe's office will call you tomorrow to schedule this procedure. It will likely be or Thursday. Please talk with them and arrange for a ride. Yo u were given 1 dose of medication to stop bleeding *Continue to take medications as directed Continue doxycycline as prescribed *Follow up with your primary care provider in 2-3 days or call [phone] Dr. Lepe's office should call you tomorrow if you do not hear from him please call him *Return to ER if you should have increasing pain, vaginal bleeding more than 2 pads in 1 hour, fever or chills, dizziness or lightheadedness or any new, worsening or concerning symptoms Prescriptions: No Action albuterol sulfate [Ventolin HFA] 90 MCG/PUFF HFA aerosol inhaler 0 puff INH Q4HP PRNQty: 1 0RF VIT#96/FERROUS FUM/FA ( Vitamin) 1 tab PO QDAY Qty: 100 3RF sertraline 50 mg tablet 50 mg PO DAILY Qty: 30 0RF Rx Instructions: Take 1/2 a day for 3 days then increase to 1 a day docusate sodium 100 mg capsule 200 mg PO DAILY Qty: 60 2RF PNV 119-iron fum-folic acid 29 mg iron- 1 mg tablet 1 tab PO DAILY Qty: 90 3RF ondansetron 4 mg tablet,disintegrating 4 mg PO Q6H PRN (Reason: nausea and vomiting) Qty: 20 3RF labetalol 200 mg tablet 200 mg PO BID Qty: 60 12RF oxycodone 5 mg tablet 5 mg PO Q4H PRN (Reason: pain) Qty: 20 0RF ferrous gluconate 236 mg (27 mg iron) tablet 236 mg PO DAILY Qty: 30 0RF vit-iron fum-folic ac 65 mg iron- 1 mg capsule 1 cap PO DAILY Qty: 90 0RF ondansetron 4 mg tablet,disintegrating 4 mg PO Q8H PRN (Reason: nausea and vomiting) Qty: 10 0RF Referrals: Man Lepe MD [Physician] - See Holm ARNP [Primary Care Provider] - Visit Report Forms: Patient Portal/API
[2022-06-10 15:46] LABS: Amorphous Sediment Urine 2+; Bacteria Urine Moderate (10-30); RBC Urine 1-5/HPF (0-5/HPF); Squamous Epithelial Cell Urine 5-10 /HPF (0-5/HPF); WBC Urine 5-10/HPF (0-5/HPF)
[2022-06-10] MEDS: METHYLERGONOVINE 0.2 MG/ML VIAL IM (17:58)
[2022-06-10] MEDS: KETOROLAC 30 MG/ML VIAL 15 MG IV (17:58)
[2022-06-10] MEDS: ONDANSETRON 4 MG/2 ML INJ IV (17:58)
== END 2022-06-10 18:55 | disposition home or self-care (01) ==
PROVIDERS: Emergency Provider Emergency Medicine; Family Provider Specialist; PCP Registered Nurse
DX: O03.4 Incomplete spontaneous abortion without complication (principal)
CPT/HCPCS: 36415; 76830; 76856; 80053; 81003; 81015; 84702; 85025; 87086; 96372; 96374; 96375; 99284; J1885; J2210; J2405

== ENCOUNTER → 2022-06-17 18:59 | Outpatient (CLI) | payer OTHER, MEDICAID, SELFPAY ==
--- NOTE | 2022-06-17 19:03 | DI.MRI.S_ITS ---
PROCEDURE: MR PELVIS WO/W CON INDICATIONS: Hypervascular anterior lower uterine segment mass, +hCG TECHNIQUE: Coronal HASTE, sagittal breath-hold T2 FSE; axial T1 FSE with and without fat saturation through the pelvis. Optional long- and short-axis uterine nonbreath-hold T2 FSE through the uterus. Sagittal or axial dynamic VIBE during administration of contrast. Post-contrast axial or coronal VIBE/2-D FLASH with fat saturation from the iliac crests to the symphysis. Optional diffusion weighted imaging and ADC may be performed. [facility], US, US PELVIC COMPLETE, 06/10/2022, 14:[facility], US, US OB <= 14 WEEKS FETUS, 12/12/2021, 2:04. [facility], US, US PELVIC COMPLETE, 02/20/2022, 14:21. [facility], CT, CT ABDOMEN PELVIS WITH CONTRAST, 06/04/2022, 23:47. [facility], US, US PELVIC COMPLETE WITH TRANSVAGINAL, 06/05/2022, 5:18. 57. ALIS: FINDINGS: Image quality: Excellent. Uterus: Uterus is normal in size measuring 9.3 x 4.1 x 5.9 cm. In the anterior lower uterine segment at the level of a scar, there is a heterogeneously [id number] lesion measuring 2.3 x 2.2 x 3.2 cm lesion corresponding to the mass seen on prior pelvic ultrasound. There is mild heterogeneous postcontrast enhancement. Surrounding metal artifact is seen related to prior postsurgical changes in this location. The endometrium is otherwise normal in thickness. A nabothian cyst is noted in the cervix. Junctional zone is normal in thickness at 12 mm or less. Adnexa: Both ovaries are normal in size, without suspicious cystic or solid lesions. Urinary system: Bladder is decompressed. Distal ureters are non distended. Urethra appears normal in morphology. Nodes and vessels: No pelvic or inguinal adenopathy by size criteria. Iliac vessels are normal in size. Bowel and peritoneum: Trace free fluid in the pelvis is most likely physiologic. Inferior colon and small bowel loops are normal in caliber. Soft tissues: No inguinal hernias. No findings of pelvic floor incompetence in the absence of provocation. Small fat containing periumbilical hernia. Bones: Marrow demonstrates normal overall signal. No abnormal intraosseous enhancement. IMPRESSION: Circumscribed 3.2 cm heterogeneous enhancing mass is seen in the anterior lower uterine segment at the level of a scar, which corresponds to prior ultrasound and CT findings. The lesion appears to communicate with the endometrial canal. Overall, findings are favored to represent retained products of conception versus less likely molar or endometrial mass. Approved by: Gautam Benavidez M.D. on 06/17/2022 at 21:12
== END ==
PROVIDERS: Family Provider Specialist; PCP Registered Nurse; Visit Provider Obstetrics & Gynecology
DX: Z33.1 Pregnant state, incidental (principal); R10.2 Pelvic and perineal pain; N94.89 Other specified conditions associated with female genital organs and menstrual cycle
CPT/HCPCS: 72197; A9579

== ENCOUNTER → 2022-06-18 19:04 | Outpatient (CLI) | payer OTHER, MEDICAID, SELFPAY ==
--- NOTE | 2022-06-18 | DI.MRI.S_ITS ---
PROCEDURE: MR ABDOMEN WO/W CON INDICATIONS: abdomen pain TECHNIQUE: Coronal HASTE, axial 2D FLASH in- and [id number]; axial breath-hold T2 FSE. Dynamic axial VIBE during the administration of contrast; post-contrast coronal VIBE or 2D FLASH with fat saturation from the hepatic dome to the iliac crests. Optional diffusion weighted imaging and ADC may be performed. COMPARISON: [facility], CT, CT ABDOMEN PELVIS WITH CONTRAST, 06/04/2022, 23:47. FINDINGS: Image quality: There is some motion degradation Lower chest: No basal effusions. Lungs are not well evaluated on this study. Solid organs: Liver is unremarkable. Gallbladder is unremarkable. No pathologic dilation of the biliary tree or pancreatic duct. No splenomegaly. No hydronephrosis. No adrenal nodules. Vessels and lymph nodes: No abdominal aortic aneurysm or pathologic adenopathy by size criteria. Of Bowel and peritoneum: No significant ascites. No bowel obstruction. The stomach is mildly distended. Body wall: Small fat containing umbilical hernia with some omental vessels. Bones: No acute or suspicious osseous finding. IMPRESSION: No acute abdominal pathology within the field of view. Previously described pelvic findings are separately reported. This MRI is somewhat motion degraded. Dictated by: Clarke Figueredo M.D. on 06/19/2022 at 8:18 Approved by: Clarke Figueredo M.D. on 06/19/2022 at 8:23
== END ==
PROVIDERS: Family Provider Specialist; PCP Registered Nurse; Referring Provider Obstetrics & Gynecology; Visit Provider Obstetrics & Gynecology
DX: K42.9 Umbilical hernia without obstruction or gangrene; R10.2 Pelvic and perineal pain
CPT/HCPCS: 74183

== ENCOUNTER 2022-06-30 21:21 | Emergency (ER) | payer OTHER, MEDICAID, SELFPAY ==
[2022-06-30 21:20] VITALS: BP 136/87; PULSE 80; RESP 20; TEMP 36.6; O2SAT 100
[2022-06-30 22:02] LABS: Add Manual Diff / Slide Review NO; Basophils Absolute Auto 100 /uL (0-100); Basophils Percent Auto 1.1 % (0-2); Eosinophils Absolute Auto 200 /uL (0-450); Eosinophils Percent Auto 1.9 % (2-4); Hematocrit 27.7 % (36-46); Hemoglobin 8.4 g/dL (12.0-16.0); Lymphocytes Absolute Auto 2500 /uL (1100-4500); Lymphocytes Percent Auto 25.8 % (25-40); Mean Corpuscular HGB Conc 30.3 % (30-36); Mean Corpuscular Hemoglobin 16.9 PG (26-34); Mean Corpuscular Volume 55.9 fL (80-100); Monocytes Absolute Auto 700 /uL (0-900); Monocytes Percent Auto 7.3 % (3-14); Neutrophils Absolute Auto 6300 /uL (1500-7000); Neutrophils Percent Auto 63.9 % (50-75); Platelet Count 633 X10^3/uL (150-400); Red Blood Cell Count 4.95 X10^6/uL (4.0-5.2); Red Cell Distribution Width 19.6 % (11.6-14.8); White Blood Cell Count 9.9 X10^3/uL (4.5-11.0)
[2022-06-30 22:07] LABS: Alanine Aminotransferase 24 IU/L (<35); Albumin 4.5 g/dL (3.5-5.0); Albumin Globulin Ratio 1.2 (1.0-2.8); Alkaline Phosphatase 76 U/L (38-126); Aspartate Aminotransferase 57 IU/L (14-36); BUN Creatinine Ratio 16.2 (6-22); Bilirubin Total 0.4 mg/dL (0.2-1.3); Blood Urea Nitrogen 11 mg/dL (7-17); Calcium 8.9 mg/dL (8.4-10.2); Carbon Dioxide 26 mmol/L (22-32); Chloride 106 mmol/L (98-107); Estimated Glomerular Filt Rate > 60 mL/min (>60); Globulin 3.9 g/dL (1.7-4.1); Glucose 82 mg/dL (70-100); HEMOLYSIS < 15 (0-50); Lipase 93 U/L (23-300); Potassium 3.6 mmol/L (3.4-5.1); Sodium 144 mmol/L (137-145); Total Protein 8.4 g/dL (6.3-8.2)
--- NOTE | 2022-06-30 23:27 | ED.ABDPAIN ---
HPI - Abdominal Pain <Derek Mckeon DO - Last Filed: 07/02/22 00:12> General Chief Complaint: Abdominal Pain Stated Complaint: Abd Pain Time Seen by Provider: 06/30/22 21:27 Source: patient and EMS Mode of arrival: EMS History of Present Illness HPI narrative: 31-year-old female smoker with history of anemia, pelvic pain and relatively recently discovered vascular pelvic mass presents with worsening pelvic pain and lightheadedness. She states that her lightheadedness seems to happen when she stands up or moves and improves with rest. She denies any headache or blurred vision. She denies chest pain or shortness of breath. She denies any fever, chills nor nausea or vomiting. She does have ongoing pelvic pain that seems to be in a similar distribution and type of pain but more intense than it had previously been. She started developing symptoms in May and had ultrasound suggestive of a pelvic mass versus retained products and subsequently had advanced imaging including a pelvic MRI which showed an endometrial mass and has been referred to the [facility]. She was last down there last week and had an ultrasound that did not apparently show anything significant. She is reporting a surgery in the near future is planned. She denies any dysuria, frequency or urgency. She had been bleeding on Thursday, Thursday and Thursday but stopped Thursday evening and has not even had spotting since then Related Data Previous Rx's Medication Instructions Recorded albuterol sulfate 90 mcg/actuation 0 puff INH Q4HP PRN #1 ea 08/23/17 aerosol inhaler (Ventolin HFA) sertraline 50 mg tablet 50 mg PO DAILY Anxiety and 03/29/21 depression #30 tabs ferrous gluconate 236 mg (27 mg 236 mg PO DAILY anemia #30 tabs 05/22/21 iron) tablet labetalol 200 mg tablet 200 mg PO BID #60 tabs 05/22/21 oxycodone 5 mg tablet 5 mg PO Q4H PRN pain #20 tabs 05/22/21 vitamin-ferrous fumarate 1 cap PO DAILY breast feeding #90 05/22/21 65 mg iron-folic acid 1 mg capsule caps VIT#96/FERROUS FUM/FA 1 tab PO QDAY #100 tabs 11/22/21 ( Vitamin) docusate sodium 100 mg capsule 200 mg PO DAILY #60 caps 06/09/22 ondansetron 4 mg disintegrating 4 mg PO Q6H PRN nausea and 11/28/21 tablet vomiting #20 tabs vitamins no.119-iron 1 tab PO DAILY #90 tabs 11/28/21 fumarate 29 mg-folic acid 1 mg tablet ondansetron 4 mg disintegrating 4 mg PO Q8H PRN nausea and 02/20/22 tablet vomiting #10 tabs hydroxyzine HCl 25 mg tablet 25 mg PO BID PRN anxiety #10 tabs 06/12/22 ibuprofen 600 mg tablet 600 mg PO Q6H PRN fever or pain 06/12/22 #30 tabs tranexamic acid 650 mg tablet 650 mg PO BID #7 tabs 07/01/22 Allergies Allergy/AdvReac Type Severity Reaction Status Date / Time azithromycin Allergy Intermediate Rash Verified 06/12/22 14:42 cefixime [CEFIXIME] Allergy Unknown Verified 06/12/22 14:42 Penicillins [PENICILLINS] Allergy Unknown Hives Verified 06/12/22 14:42 promethazine [PROMETHAZINE] Allergy Unknown Verified 06/12/22 14:42 amoxicillin Allergy Verified 06/12/22 14:42 sumatriptan AdvReac Intermediate Dizzyness Verified 06/12/22 14:42 Review of Systems <Derek Mckeon DO - Last Filed: 07/02/22 00:12> Review of Systems Narrative: GENERAL: See HPI HEENT: Denies sinus pain, ear pain, sore throat, difficulty swallowing, dizziness. RESPIRATORY: Denies dyspnea, cough, wheezing, hemoptysis, sputum. CARDIOVASCULAR: See HPI GASTROINTESTINAL: Denies nausea, vomiting, abdominal pain, diarrhea, constipation, melena. : See HPI MUSCULOSKELETAL: denies weakness, joint pain, or bony pain SKIN: Denies rash, skin lesions, or other NEUROLOGIC: Denies weakness, headache, numbness, change in speech, confusion, seizures, incoordination. PSYCHIATRIC: No concerning psychosocial issues. 12 point review of systems is negative except for those stated above Patient History <Derek Mckeon DO - Last Filed: 07/02/22 00:12> Medical History Allergic rhinitis Alopecia (~04/02/20) Asthma Chalazion Chronic headache Depressive disorder Essential hypertension (~07/2019) Genital herpes (~2012) GERD (gastroesophageal reflux disease) HSV-1 (herpes simplex virus 1) infection (~2012) Hypertension Incomplete Iron deficiency (~09/13/20) 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 Grandmother Hypertension Grandfather No problems noted. Grandmother No problems noted. Grandfather No problems noted. Family/Other Thyroiditis Social History marital status: unknown Smoking Status: Current every day smoker Smoking Status: Current every day smoker tobacco type: vaping alcohol intake frequency: holidays/special occasions only Alcohol type: hard liquor Substance Use Type: marijuana Exam <Derek Mckeon DO - Last Filed: 07/02/22 00:12> Narrative Exam Narrative: GENERAL: [31] year old patient appears stated age. Well-developed patient, in mild distress. HEAD: Atraumatic. Normocephalic. EYES: Pupils equal round and reactive. Extraocular motions intact. No scleral icterus. No injection or drainage. ENT: Nose without bleeding, purulent drainage. Throat without erythema, tonsillar hypertrophy or exudate. Airway patent. NECK: Trachea midline. Non tender CARDIOVASCULAR: Regular rate and rhythm without murmurs, gallops, or rubs. RESPIRATORY: Clear to auscultation. Breath sounds equal bilaterally. No wheezes, rales, or rhonchi. GASTROINTESTINAL: Abdomen soft, mild tenderness in the suprapubic region, nondistended. EXTREMITIES: No edema or joint tenderness. BACK: Nontender without deformity or crepitance. No flank tenderness. NEURO: AOx3. SKIN: No rash or erythema of visible areas Initial Vital Signs Initial Vital Signs: Vital Signs Temperature 98 F 06/30/22 21:20 Pulse Rate 80 06/30/22 21:20 Respiratory Rate 20 06/30/22 21:20 Blood Pressure 136/87 06/30/22 21:20 Pulse Oximetry 100 06/30/22 21:20 Oxygen Delivery Method 06/30/22 21:20 <Lloyd Braun MD - Last Filed: 07/09/22 22:03> Initial Vital Signs Initial Vital Signs: Vital Signs Temperature 98 F 06/30/22 21:20 Pulse Rate 80 06/30/22 21:20 Respiratory Rate 20 06/30/22 21:20 Blood Pressure 136/87 06/30/22 21:20 Pulse Oximetry 100 06/30/22 21:20 Oxygen Delivery Method 06/30/22 21:20 Course <Derek Mckeon DO - Last Filed: 07/02/22 00:12> Orders Ordered: Discontinued Medications Hydromorphone HCl (Hydromorphone 0.5 Mg Inj) 0.5 mg IV NOW ONE Stop: 06/30/22 23:54 Last Admin: 07/01/22 00:15 Dose: 0.5 mg Documented By: REX Hydromorphone HCl (Hydromorphone 0.5 Mg Inj) 0.5 mg IV NOW ONE Stop: 07/01/22 06:03 Last Admin: 07/01/22 06:13 Dose: 0.5 mg Documented By: MAR Sodium Chloride (Normal Saline 0.9%) 1,000 mls @ 1,000 mls/hr IV BOLUS ONE Stop: 07/01/22 04:08 Last Infusion: 07/01/22 04:57 Dose: 0 mls/hr Documented By: Admin: 07/01/22 03:00 Dose: 1,000 mls/hr Documented By: MAR Tranexamic Acid 1,000 mg/ (Sodium Chloride) 100 mls @ 200 mls/hr IV NOW ONE Stop: 07/01/22 14:01 Last Admin: 07/01/22 13:58 Dose: 200 mls/hr Documented By: SPENCER Ondansetron HCl (Ondansetron 4 Mg/2 Ml Inj) 4 mg IV NOW ONE Stop: 06/30/22 23:54 Last Admin: 07/01/22 00:15 Dose: 4 mg Documented By: REX Ondansetron HCl (Ondansetron 4 Mg/2 Ml Inj) 4 mg IV NOW ONE Stop: 07/01/22 10:51 Last Admin: 07/01/22 10:57 Dose: 4 mg Documented By: SPENCER Oxycodone/Acetaminophen (Oxycodone/Acetaminophen 5/325 Tablet) 1 tab PO NOW ONE Stop: 07/01/22 14:26 Last Admin: 07/01/22 14:30 Dose: 1 tab Documented By: DAVID Vital Signs Vital signs: Vital Signs - 8 hr 07/01/22 06:29 07/01/22 06:25 07/01/22 06:25 Temperature 97.4 F L Pulse Rate 70 65 Respiratory Rate 16 33 H Blood Pressure 136/82 136/82 Pulse Oximetry 99 07/01/22 06:30 07/01/22 06:30 07/01/22 06:56 Temperature Pulse Rate 61 Respiratory Rate 13 Blood Pressure 123/71 125/81 Pulse Oximetry 97 07/01/22 06:56 07/01/22 07:00 07/01/22 07:00 Temperature Pulse Rate 63 67 Respiratory Rate 12 22 Blood Pressure 116/60 Pulse Oximetry 100 100 07/01/22 08:01 07/01/22 08:00 07/01/22 08:16 Temperature 97.5 F L 97.5 F L 97.6 F Pulse Rate 62 77 69 Respiratory Rate 16 18 18 Blood Pressure 129/73 122/74 126/74 Pulse Oximetry 07/01/22 07:30 07/01/22 07:31 07/01/22 07:31 Temperature Pulse Rate 64 63 Respiratory Rate 18 17 Blood Pressure 118/59 L Pulse Oximetry 100 99 07/01/22 08:00 07/01/22 08:00 07/01/22 08:03 Temperature Pulse Rate 59 L Respiratory Rate 18 Blood Pressure 129/73 122/74 Pulse Oximetry 07/01/22 08:03 07/01/22 08:17 07/01/22 08:17 Temperature Pulse Rate 60 69 Respiratory Rate 16 15 Blood Pressure 126/74 Pulse Oximetry 100 99 07/01/22 08:45 07/01/22 08:30 07/01/22 08:31 Temperature 97.6 F Pulse Rate 82 61 Respiratory Rate 18 13 Blood Pressure 113/67 113/67 Pulse Oximetry 99 07/01/22 08:31 07/01/22 09:00 07/01/22 09:01 Temperature Pulse Rate 62 87 96 H Respiratory Rate 15 19 18 Blood Pressure Pulse Oximetry 100 99 99 07/01/22 09:01 07/01/22 09:30 07/01/22 10:29 Temperature 97.9 F Pulse Rate 66 60 Respiratory Rate 21 18 Blood Pressure 144/99 H 126/72 Pulse Oximetry 99 07/01/22 10:31 07/01/22 10:00 Temperature 97.9 F Pulse Rate 59 L 62 Respiratory Rate 17 24 Blood Pressure 140/61 Pulse Oximetry 99 <Lloyd Braun MD - Last Filed: 07/09/22 22:03> Orders Ordered: Discontinued Medications Hydromorphone HCl (Hydromorphone 0.5 Mg Inj) 0.5 mg IV NOW ONE Stop: 06/30/22 23:54 Last Admin: 07/01/22 00:15 Dose: 0.5 mg Documented By: REX Hydromorphone HCl (Hydromorphone 0.5 Mg Inj) 0.5 mg IV NOW ONE Stop: 07/01/22 06:03 Last Admin: 07/01/22 06:13 Dose: 0.5 mg Documented By: MAR Sodium Chloride (Normal Saline 0.9%) 1,000 mls @ 1,000 mls/hr IV BOLUS ONE Stop: 07/01/22 04:08 Last Infusion: 07/01/22 04:57 Dose: 0 mls/hr Documented By: Admin: 07/01/22 03:00 Dose: 1,000 mls/hr Documented By: MAR Tranexamic Acid 1,000 mg/ (Sodium Chloride) 100 mls @ 200 mls/hr IV NOW ONE Stop: 07/01/22 14:01 Last Admin: 07/01/22 13:58 Dose: 200 mls/hr Documented By: SPENCER Ondansetron HCl (Ondansetron 4 Mg/2 Ml Inj) 4 mg IV NOW ONE Stop: 06/30/22 23:54 Last Admin: 07/01/22 00:15 Dose: 4 mg Documented By: REX Ondansetron HCl (Ondansetron 4 Mg/2 Ml Inj) 4 mg IV NOW ONE Stop: 07/01/22 10:51 Last Admin: 07/01/22 10:57 Dose: 4 mg Documented By: SPENCER Oxycodone/Acetaminophen (Oxycodone/Acetaminophen 5/325 Tablet) 1 tab PO NOW ONE Stop: 07/01/22 14:26 Last Admin: 07/01/22 14:30 Dose: 1 tab Documented By: DAVID Vital Signs Vital signs: Vital Signs - 8 hr 07/01/22 06:29 07/01/22 06:25 07/01/22 06:25 Temperature 97.4 F L Pulse Rate 70 65 Respiratory Rate 16 33 H Blood Pressure 136/82 136/82 Pulse Oximetry 99 07/01/22 06:30 07/01/22 06:30 07/01/22 06:56 Temperature Pulse Rate 61 Respiratory Rate 13 Blood Pressure 123/71 125/81 Pulse Oximetry 97 07/01/22 06:56 07/01/22 07:00 07/01/22 07:00 Temperature Pulse Rate 63 67 Respiratory Rate 12 22 Blood Pressure 116/60 Pulse Oximetry 100 100 07/01/22 08:01 07/01/22 08:00 07/01/22 08:16 Temperature 97.5 F L 97.5 F L 97.6 F Pulse Rate 62 77 69 Respiratory Rate 16 18 18 Blood Pressure 129/73 122/74 126/74 Pulse Oximetry 07/01/22 07:30 07/01/22 07:31 07/01/22 07:31 Temperature Pulse Rate 64 63 Respiratory Rate 18 17 Blood Pressure 118/59 L Pulse Oximetry 100 99 07/01/22 08:00 07/01/22 08:00 07/01/22 08:03 Temperature Pulse Rate 59 L Respiratory Rate 18 Blood Pressure 129/73 122/74 Pulse Oximetry 07/01/22 08:03 07/01/22 08:17 07/01/22 08:17 Temperature Pulse Rate 60 69 Respiratory Rate 16 15 Blood Pressure 126/74 Pulse Oximetry 100 99 07/01/22 08:45 07/01/22 08:30 07/01/22 08:31 Temperature 97.6 F Pulse Rate 82 61 Respiratory Rate 18 13 Blood Pressure 113/67 113/67 Pulse Oximetry 99 07/01/22 08:31 07/01/22 09:00 07/01/22 09:01 Temperature Pulse Rate 62 87 96 H Respiratory Rate 15 19 18 Blood Pressure Pulse Oximetry 100 99 99 07/01/22 09:01 07/01/22 09:30 07/01/22 10:29 Temperature 97.9 F Pulse Rate 66 60 Respiratory Rate 21 18 Blood Pressure 144/99 H 126/72 Pulse Oximetry 99 07/01/22 10:31 07/01/22 10:00 Temperature 97.9 F Pulse Rate 59 L 62 Respiratory Rate 17 24 Blood Pressure 140/61 Pulse Oximetry 99 MDM - Abdominal Pain <Derek Mckeon DO - Last Filed: 07/02/22 00:12> Lab Data Result diagrams: 07/01/22 12:01 06/30/22 21:15 Labs: Lab Results 06/30/22 06/30/22 07/01/22 Range/Units 21:15 21:15 02:30 WBC 9.9 (4.5-11.0) X10^3/uL RBC 4.95 (4.0-5.2) X10^6/uL Hgb 8.4 L 7.3 L (12.0-16.0) g/dL Hct 27.7 L 24.6 L (36-46) % MCV 55.9 L (80-100) fL MCH 16.9 L (26-34) PG MCHC 30.3 (30-36) % RDW 19.6 H (11.6-14.8) % Plt Count 633 H (150-400) X10^3/uL Neut % (Auto) 63.9 (50-75) % Lymph % (Auto) 25.8 (25-40) % [place] % (Auto) 7.3 (3-14) % Eos % (Auto) 1.9 L (2-4) % Baso % (Auto) 1.1 (0-2) % Neut # (Auto) 6300 (6812-5496) /uL Lymph # (Auto) 2500 (1772-7885) /uL [place] # (Auto) 700 (0-900) /uL Eos # (Auto) 200 (0-450) /uL Baso # (Auto) 100 (0-100) /uL Nucleated RBCs Cancelled Hypersegmented Neuts Cancelled Hypogranular Neuts Cancelled Reactive Lymphocytes Cancelled Smudge Cells Cancelled Other Cell Type Cancelled Toxic Granulation Cancelled Toxic Vacuolation Cancelled Dohle Bodies Cancelled Jeanie Rods Cancelled WBC Morphology Comment Cancelled Platelet Estimate Cancelled Clumped Platelets Cancelled Plt Morphology Comment Cancelled RBC Morphology Cancelled Dimorphic RBCs Cancelled Polychromasia Cancelled Hypochromasia Cancelled Poikilocytosis Cancelled Basophilic Stippling Cancelled Anisocytosis Cancelled Microcytosis Cancelled Macrocytosis Cancelled Spherocytes Cancelled Pappenheimer Bodies Cancelled Sickle Cells Cancelled Target Cells Cancelled Tear Drop Cells Cancelled Ovalocytes Cancelled Stomatocytes Cancelled Helmet Cells Cancelled [place] Bodies Cancelled Arcade Rings Cancelled Dayna Cells Cancelled Acanthocytes (Spur) Cancelled Rouleaux Cancelled Schistocytes Cancelled Sodium 144 (137-145) mmol/L Potassium 3.6 (3.4-5.1) mmol/L Chloride 106 (98-107) mmol/L Carbon Dioxide 26 (22-32) mmol/L BUN 11 (7-17) mg/dL Creatinine 0.68 (0.52-1.04) mg/dL Estimated GFR > 60 (>60) mL/min BUN/Creatinine Ratio 16.2 (6-22) Glucose 82 (70-100) mg/dL Calcium 8.9 (8.4-10.2) mg/dL Total Bilirubin 0.4 (0.2-1.3) mg/dL AST 57 H (14-36) IU/L ALT 24 (<35) IU/L Alkaline Phosphatase 76 (38-126) U/L Total Protein 8.4 H (6.3-8.2) g/dL Albumin 4.5 (3.5-5.0) g/dL Globulin 3.9 (1.7-4.1) g/dL Albumin/Globulin Ratio 1.2 (1.0-2.8) Lipase 93 (23-300) U/L Blood Type Antibody Screen Crossmatch 07/01/22 07/01/22 Range/Units 03:21 12:01 WBC (4.5-11.0) X10^3/uL RBC (4.0-5.2) X10^6/uL Hgb 9.4 L (12.0-16.0) g/dL Hct 30.6 L (36-46) % MCV (80-100) fL MCH (26-34) PG MCHC (30-36) % RDW (11.6-14.8) % Plt Count (150-400) X10^3/uL Neut % (Auto) (50-75) % Lymph % (Auto) (25-40) % [place] % (Auto) (3-14) % Eos % (Auto) (2-4) % Baso % (Auto) (0-2) % Neut # (Auto) (8058-8281) /uL Lymph # (Auto) (1368-2636) /uL [place] # (Auto) (0-900) /uL Eos # (Auto) (0-450) /uL Baso # (Auto) (0-100) /uL Nucleated RBCs Hypersegmented Neuts Hypogranular Neuts Reactive Lymphocytes Smudge Cells Other Cell Type Toxic Granulation Toxic Vacuolation Dohle Bodies Jeanie Rods WBC Morphology Comment Platelet Estimate Clumped Platelets Plt Morphology Comment RBC Morphology Dimorphic RBCs Polychromasia Hypochromasia Poikilocytosis Basophilic Stippling Anisocytosis Microcytosis Macrocytosis Spherocytes Pappenheimer Bodies Sickle Cells Target Cells Tear Drop Cells Ovalocytes Stomatocytes Helmet Cells [place] Bodies Arcade Rings Mccormick Cells Acanthocytes (Spur) Rouleaux Schistocytes Sodium (137-145) mmol/L Potassium (3.4-5.1) mmol/L Chloride (98-107) mmol/L Carbon Dioxide (22-32) mmol/L BUN (7-17) mg/dL Creatinine (0.52-1.04) mg/dL Estimated GFR (>60) mL/min BUN/Creatinine Ratio (6-22) Glucose (70-100) mg/dL Calcium (8.4-10.2) mg/dL Total Bilirubin (0.2-1.3) mg/dL AST (14-36) IU/L ALT (<35) IU/L Alkaline Phosphatase (38-126) U/L Total Protein (6.3-8.2) g/dL Albumin (3.5-5.0) g/dL Globulin (1.7-4.1) g/dL Albumin/Globulin Ratio (1.0-2.8) Lipase (23-300) U/L Blood Type O Positive Antibody Screen Negative Crossmatch See Detail Point of care testing: Point of Care Testing Test Results Negative Urine Dip Bedside Urine Glucose Negative Bedside Urine Bilirubin - Negative Bedside Urine Ketone - Negative Urine Specific [place] 1.030 Bedside Urine Occult Blood - Negative Bedside Urine pH 6.0 Bedside Urine Protein - Negative Bedside Urine Urobilinogen - Negative Bedside Urine Nitrite - Negative Bedside Urine Leukocytes - Negative Esterase Imaging Data CT scan - abdomen/pelvis: Radiologist's Impression: [address] [address] [address] Scan Report Signed Patient: Elvia Etienne MR#: [id number] : 1990 Acct:[id number] Age/Sex: 31 / F Date of Service: 07/01/22 Loc: ED Accession Number: [id number] ?? Procedure: CT abdomen pelvis w con Ordering Provider: Derek Mckeon D.O. PROCEDURE:? CT ABDOMEN PELVIS W CON ? INDICATIONS:? severe abdominal/pelvic pain, known mass, anemia ? TECHNIQUE:? After the administration of intravenous contrast, axial sections acquired from the lung bases to the pubic symphysis.? Coronal and sagittal reformats were performed.? For radiation dose reduction, the following was used:? automated exposure control, adjustment of mA and/or kV according to patient size.? ? COMPARISON:? [facility], CT, CT ABDOMEN PELVIS WITH CONTRAST, 06/04/2022, 23:47.? [facility], MR, MR PELVIS WO/W CON, 06/17/2022, 19:16. ? FINDINGS:? Image quality:? Excellent.? ? Lung bases:? Unremarkable. Heart:? No significant findings. ? ABDOMEN: Liver:? Unremarkable.? ? Gallbladder:? Unremarkable. Biliary ducts:? Unremarkable.? ? Pancreas:? Unremarkable.? ? Spleen:? Unremarkable.? ? Adrenal Glands:? Unremarkable.? ? Kidneys and Ureters:? Unremarkable.? ? ? Stomach and Bowel:? Stomach, small bowel loops, and colon are unremarkable.? Mild fecal stasis in the colon is seen.? No abscess collection. Peritoneum:? No abnormal intraperitoneal fluid.? No free air.? ? Ventral Wall: ? Moderate-sized umbilical hernia containing fat only. Abdominal Nodes:? No retroperitoneal or mesenteric adenopathy by size criteria.? Vessels:? Aorta and inferior vena cava are normal in size.? ? PELVIS: Pelvic Organs:? Low-density mass within anterior wall of the uterus is seen better evaluated on concurrent ultrasound and previous MRI study.? No gross abnormality is seen in bilateral adnexa. Bladder:? Unremarkable.? ? Pelvic Nodes: No enlarged lymph nodes.? Miscellaneous: No hernias are seen. ? ? ? Bones:? No suspicious bony lesions.? No acute vertebral body compression fracture. ? ? IMPRESSION:? ? 1. Again noted is heterogeneously enhancing mass involving anterior wall of uterus better evaluated on previous MRI study and pelvic ultrasound studies. ? 2. No evidence of bowel obstruction or abnormal bowel wall thickening.? Mild constipation.? No abscess collection.? No free fluid or free air. ? No significant discrepancies from preliminary reading. ? ? Dictated by: Magdi Avalos M.D. on 07/01/2022 at 8:22 ? ? Approved by: Magdi Avalos M.D. on 07/01/2022 at 8:46 ? [facility] Narrative Medical decision making narrative: 31-year-old female with known pelvic mass presents with increasing pelvic pain and at times feeling lightheaded and weak. No significant abnormal exam findings, initial ultrasound demonstrated no change from prior. She became increasingly lightheaded, repeat H&H noted anemia which point 2 units of packed cells were ordered, patient kept NPO and CT of the abdomen and pelvis were ordered. Patient signed out to Dr. Braun for final disposition <Lloyd Braun MD - Last Filed: 07/09/22 22:03> Lab Data Labs: Lab Results 06/30/22 06/30/22 07/01/22 Range/Units 21:15 21:15 02:30 WBC 9.9 (4.5-11.0) X10^3/uL RBC 4.95 (4.0-5.2) X10^6/uL Hgb 8.4 L 7.3 L (12.0-16.0) g/dL Hct 27.7 L 24.6 L (36-46) % MCV 55.9 L (80-100) fL MCH 16.9 L (26-34) PG MCHC 30.3 (30-36) % RDW 19.6 H (11.6-14.8) % Plt Count 633 H (150-400) X10^3/uL Neut % (Auto) 63.9 (50-75) % Lymph % (Auto) 25.8 (25-40) % [place] % (Auto) 7.3 (3-14) % Eos % (Auto) 1.9 L (2-4) % Baso % (Auto) 1.1 (0-2) % Neut # (Auto) 6300 (5924-2198) /uL Lymph # (Auto) 2500 (3643-8088) /uL [place] # (Auto) 700 (0-900) /uL Eos # (Auto) 200 (0-450) /uL Baso # (Auto) 100 (0-100) /uL Nucleated RBCs Cancelled Hypersegmented Neuts Cancelled Hypogranular Neuts Cancelled Reactive Lymphocytes Cancelled Smudge Cells Cancelled Other Cell Type Cancelled Toxic Granulation Cancelled Toxic Vacuolation Cancelled Dohle Bodies Cancelled Jeanie Rods Cancelled WBC Morphology Comment Cancelled Platelet Estimate Cancelled Clumped Platelets Cancelled Plt Morphology Comment Cancelled RBC Morphology Cancelled Dimorphic RBCs Cancelled Polychromasia Cancelled Hypochromasia Cancelled Poikilocytosis Cancelled Basophilic Stippling Cancelled Anisocytosis Cancelled Microcytosis Cancelled Macrocytosis Cancelled Spherocytes Cancelled Pappenheimer Bodies Cancelled Sickle Cells Cancelled Target Cells Cancelled Tear Drop Cells Cancelled Ovalocytes Cancelled Stomatocytes Cancelled Helmet Cells Cancelled [place] Bodies Cancelled Arcade Rings Cancelled Dayna Cells Cancelled Acanthocytes (Spur) Cancelled Rouleaux Cancelled Schistocytes Cancelled Sodium 144 (137-145) mmol/L Potassium 3.6 (3.4-5.1) mmol/L Chloride 106 (98-107) mmol/L Carbon Dioxide 26 (22-32) mmol/L BUN 11 (7-17) mg/dL Creatinine 0.68 (0.52-1.04) mg/dL Estimated GFR > 60 (>60) mL/min BUN/Creatinine Ratio 16.2 (6-22) Glucose 82 (70-100) mg/dL Calcium 8.9 (8.4-10.2) mg/dL Total Bilirubin 0.4 (0.2-1.3) mg/dL AST 57 H (14-36) IU/L ALT 24 (<35) IU/L Alkaline Phosphatase 76 (38-126) U/L Total Protein 8.4 H (6.3-8.2) g/dL Albumin 4.5 (3.5-5.0) g/dL Globulin 3.9 (1.7-4.1) g/dL Albumin/Globulin Ratio 1.2 (1.0-2.8) Lipase 93 (23-300) U/L Blood Type Antibody Screen Crossmatch 07/01/22 07/01/22 Range/Units 03:21 12:01 WBC (4.5-11.0) X10^3/uL RBC (4.0-5.2) X10^6/uL Hgb 9.4 L (12.0-16.0) g/dL Hct 30.6 L (36-46) % MCV (80-100) fL MCH (26-34) PG MCHC (30-36) % RDW (11.6-14.8) % Plt Count (150-400) X10^3/uL Neut % (Auto) (50-75) % Lymph % (Auto) (25-40) % [place] % (Auto) (3-14) % Eos % (Auto) (2-4) % Baso % (Auto) (0-2) % Neut # (Auto) (6242-6008) /uL Lymph # (Auto) (9548-9032) /uL [place] # (Auto) (0-900) /uL Eos # (Auto) (0-450) /uL Baso # (Auto) (0-100) /uL Nucleated RBCs Hypersegmented Neuts Hypogranular Neuts Reactive Lymphocytes Smudge Cells Other Cell Type Toxic Granulation Toxic Vacuolation Dohle Bodies Jeanie Rods WBC Morphology Comment Platelet Estimate Clumped Platelets Plt Morphology Comment RBC Morphology Dimorphic RBCs Polychromasia Hypochromasia Poikilocytosis Basophilic Stippling Anisocytosis Microcytosis Macrocytosis Spherocytes Pappenheimer Bodies Sickle Cells Target Cells Tear Drop Cells Ovalocytes Stomatocytes Helmet Cells [place] Bodies Arcade Rings Mccormick Cells Acanthocytes (Spur) Rouleaux Schistocytes Sodium (137-145) mmol/L Potassium (3.4-5.1) mmol/L Chloride (98-107) mmol/L Carbon Dioxide (22-32) mmol/L BUN (7-17) mg/dL Creatinine (0.52-1.04) mg/dL Estimated GFR (>60) mL/min BUN/Creatinine Ratio (6-22) Glucose (70-100) mg/dL Calcium (8.4-10.2) mg/dL Total Bilirubin (0.2-1.3) mg/dL AST (14-36) IU/L ALT (<35) IU/L Alkaline Phosphatase (38-126) U/L Total Protein (6.3-8.2) g/dL Albumin (3.5-5.0) g/dL Globulin (1.7-4.1) g/dL Albumin/Globulin Ratio (1.0-2.8) Lipase (23-300) U/L Blood Type O Positive Antibody Screen Negative Crossmatch See Detail Point of care testing: Point of Care Testing Test Results Negative Urine Dip Bedside Urine Glucose Negative Bedside Urine Bilirubin - Negative Bedside Urine Ketone - Negative Urine Specific [place] 1.030 Bedside Urine Occult Blood - Negative Bedside Urine pH 6.0 Bedside Urine Protein - Negative Bedside Urine Urobilinogen - Negative Bedside Urine Nitrite - Negative Bedside Urine Leukocytes - Negative Esterase MDM Narrative Medical decision making narrative: 31-year-old female with known pelvic mass presents with increasing pelvic pain and at times feeling lightheaded and weak. No significant abnormal exam findings, initial ultrasound demonstrated no change from prior. She became increasingly lightheaded, repeat H&H noted anemia which point 2 units of packed cells were ordered, patient kept NPO and CT of the abdomen and pelvis were ordered. Patient signed out to Dr. Braun for final disposition. Assumed care of patient. Briefly, this is a 31-year-old female with known pelvic mass, plan for undergoing surgical removal in approximately 2 days. Patient receiving blood products on sign out, pending CT imaging results. Plan for follow-up with patient's primary surgical team following CT imaging of the abdomen. CT imaging of the abdomen without evidence of active bleeding or alternative pathology to explain the patient's symptoms. On repeat evaluation, patient denies active bleeding in the emergency department. Discussed case with patient's primary surgical team at [facility], Dr. Alejandra, recommending discharge and follow up later in the week for planned surgical procedure if the patient's bleeding has improved. Plan for TXA administration in the emergency department and oral TXA in the outpatient setting until patient's surgical date. Discussed recommendations with patient and family member at bedside. Patient is agreeable with plan for discharge in outpatient follow up. Return precautions were discussed. Discharge Plan Departure Patient Disposition: Home Clinical Impression: Pelvic pain, Pelvic mass, Anemia Activity Restrictions/Additional Instructions: Please follow-up as scheduled with your [facility] surgeon for scheduled surgery on Thursday. If you have recurrent bleeding or new symptoms developed, please return to the emergency department for repeat evaluation. Please continue to take the TXA orally as discussed. Prescriptions: New tranexamic acid 650 mg tablet 650 mg PO BID Qty: 7 0RF No Action albuterol sulfate [Ventolin HFA] 90 MCG/PUFF HFA aerosol inhaler 0 puff INH Q4HP PRNQty: 1 0RF VIT#96/FERROUS FUM/FA ( Vitamin) 1 tab PO QDAY Qty: 100 3RF sertraline 50 mg tablet 50 mg PO DAILY Qty: 30 0RF Rx Instructions: Take 1/2 a day for 3 days then increase to 1 a day docusate sodium 100 mg capsule 200 mg PO DAILY Qty: 60 2RF PNV 119-iron fum-folic acid 29 mg iron- 1 mg tablet 1 tab PO DAILY Qty: 90 3RF ondansetron 4 mg tablet,disintegrating 4 mg PO Q6H PRN (Reason: nausea and vomiting) Qty: 20 3RF labetalol 200 mg tablet 200 mg PO BID Qty: 60 12RF oxycodone 5 mg tablet 5 mg PO Q4H PRN (Reason: pain) Qty: 20 0RF ferrous gluconate 236 mg (27 mg iron) tablet 236 mg PO DAILY Qty: 30 0RF vit-iron fum-folic ac 65 mg iron- 1 mg capsule 1 cap PO DAILY Qty: 90 0RF hydroxyzine HCl 25 mg tablet 25 mg PO BID PRN (Reason: anxiety) Qty: 10 0RF ibuprofen 600 mg tablet 600 mg PO Q6H PRN (Reason: fever or pain) Qty: 30 0RF ondansetron 4 mg tablet,disintegrating 4 mg PO Q8H PRN (Reason: nausea and vomiting) Qty: 10 0RF Referrals: See Holm ARNP [Primary Care Provider] - Stand Alone Forms: Patient Portal/API
--- NOTE | 2022-06-30 23:53 | DI.US.S_ITS ---
PROCEDURE: US PELVIC COMPLETE INDICATIONS: PAIN; KNOWN VASCULAR MASS TECHNIQUE: Real-time scanning was performed of the pelvic organs, with image documentation. Additional endovaginal scanning was necessary due to incomplete visualization of the adnexal and endometrial structures by transabdominal scanning. COMPARISON: [facility], MR, MR PELVIS WO/W CON, 06/17/2022, 19:16. [facility], US, US PELVIC COMPLETE, 06/10/2022, 14:57. FINDINGS: Uterus: Uterus is anteverted and measures 9.2 x 3.8 x 5.8 cm. Endometrium measures 0.4 cm in overall dimension. A hyperechoic oval mass is demonstrated within the ventral wall in the lower uterine segment measuring approximately 2.1 x 1.8 x 3.0 cm. Ovaries: The right ovary measures 2.9 x 3.1 x 2.0 cm, with a calculated ovarian volume of 9.4 cc. The left ovary measures 2.7 x 1.9 x 2.7 cm, with a calculated ovarian volume of 7.1 cc. The ovaries have a normal sonographic appearance. Less than 12 follicles can be seen in each ovary. No adnexal masses are seen. Other: No pathologic free abdominal or pelvic fluid. IMPRESSION: 1. Oval mass within the ventral myometrium in the lower uterine segment appears similar in size compared to the prior ultrasound study. We strive to produce accurate, complete, and clear reports of imaging services. To assist us in improving patient care, this report was composed using standard report templates and voice recognition software. Therefore, it may contain abnormal punctuation, insertions and/or omissions. Occasional wrong-word or sound-alike substitutions may occur. Though we review the report and make efforts to correct it, we do recommend that the report be read carefully in proper context to recognize any text inaccuracies. Dictated by: Leonard Henriquez M.D. on 07/01/2022 at 1:04 Approved by: Leonard Henriquez M.D. on 07/01/2022 at 1:16
[2022-07-01] VITALS (57 sets, daily range): BP systolic 106–144; BP diastolic 52–99; PULSE 56–96; RESP 12–55; TEMP 36.1–36.6; O2SAT 97–100
[2022-07-01] MEDS: HYDROMORPHONE 0.5 MG INJ IV ×2 (00:15→06:13)
[2022-07-01] MEDS: ONDANSETRON 4 MG/2 ML INJ IV ×2 (00:15→10:57)
[2022-07-01] MEDS: SODIUM CHLORIDE 0.9% 1,000 ML 1000 ML IV (03:00)
[2022-07-01 03:10] LABS: Hematocrit 24.6 % (36-46); Hemoglobin 7.3 g/dL (12.0-16.0)
--- NOTE | 2022-07-01 03:52 | DI.CT.S_ITS ---
PROCEDURE: CT ABDOMEN PELVIS W CON INDICATIONS: severe abdominal/pelvic pain, known mass, anemia TECHNIQUE: After the administration of intravenous contrast, axial sections acquired from the lung bases to the pubic symphysis. Coronal and sagittal reformats were performed. For radiation dose reduction, the following was used: automated exposure control, adjustment of mA and/or kV according to patient size. COMPARISON: [facility], CT, CT ABDOMEN PELVIS WITH CONTRAST, 06/04/2022, 23:47. [facility], MR, MR PELVIS WO/W CON, 06/17/2022, 19:16. FINDINGS: Image quality: Excellent. Lung bases: Unremarkable. Heart: No significant findings. ABDOMEN: Liver: Unremarkable. Gallbladder: Unremarkable. Biliary ducts: Unremarkable. Pancreas: Unremarkable. Spleen: Unremarkable. Adrenal Glands: Unremarkable. Kidneys and Ureters: Unremarkable. Stomach and Bowel: Stomach, small bowel loops, and colon are unremarkable. Mild fecal stasis in the colon is seen. No abscess collection. Peritoneum: No abnormal intraperitoneal fluid. No free air. Ventral Wall: Moderate-sized umbilical hernia containing fat only. Abdominal Nodes: No retroperitoneal or mesenteric adenopathy by size criteria. Vessels: Aorta and inferior vena cava are normal in size. PELVIS: Pelvic Organs: Low-density mass within anterior wall of the uterus is seen better evaluated on concurrent ultrasound and previous MRI study. No gross abnormality is seen in bilateral adnexa. Bladder: Unremarkable. Pelvic Nodes: No enlarged lymph nodes. Miscellaneous: No hernias are seen. Bones: No suspicious bony lesions. No acute vertebral body compression fracture. IMPRESSION: 1. Again noted is heterogeneously enhancing mass involving anterior wall of uterus better evaluated on previous MRI study and pelvic ultrasound studies. 2. No evidence of bowel obstruction or abnormal bowel wall thickening. Mild constipation. No abscess collection. No free fluid or free air. No significant discrepancies from preliminary reading. Dictated by: Magdi Avalos M.D. on 07/01/2022 at 8:22 Approved by: Magdi Avalos M.D. on 07/01/2022 at 8:46
--- NOTE | 2022-07-01 10:33 | PC.NURSE ---
Second unit of blood transfused. Pt tolerated infusion well. VSS.
[2022-07-01 12:19] LABS: Hematocrit 30.6 % (36-46); Hemoglobin 9.4 g/dL (12.0-16.0)
[2022-07-01] MEDS: TRANEXAMIC ACID 1,000 MG in SODIUM CHLORIDE 0.9% 100 ML 200 MG IV (13:58)
[2022-07-01] MEDS: OXYCODONE/ACETAMINOPHEN 5/325 TABLET 1 TAB PO (14:30)
== END 2022-07-01 14:42 | disposition home or self-care (01) ==
PROVIDERS: Emergency Medicine; Emergency Provider Emergency Medicine; Family Provider Specialist; PCP Registered Nurse
DX: R10.2 Pelvic and perineal pain (principal); R19.00 Intra-abdominal and pelvic swelling, mass and lump, unspecified site; D64.9 Anemia, unspecified
CPT/HCPCS: 36415; 36430; 74177; 76830; 76856; 80053; 81003; 81025; 83690; 85014; 85018; 85025; 86850; 86900; 86901; 96361; 96374; 96375; 96376; 99285; P9016; J1170; J2405; Q9967

== ENCOUNTER → 2024-12-12 15:36 | Outpatient (CLI) | payer OTHER, SELFPAY ==
[2024-12-12 20:40] LABS: Urine N gonorrhoeae NOT DETECTED
[2024-12-12 20:47] LABS: Urine Chlamydia NOT DETECTED
== END ==
PROVIDERS: PCP Registered Nurse; Visit Provider Student in an Organized Health Care Education/Training Program
DX: Z11.3 Encounter for screening for infections with a predominantly sexual mode of transmission (principal)
CPT/HCPCS: 87491; 87591